=== PATIENT | male | born 1940 | race Caucasian/White ===

== ENCOUNTER 2020-05-12 09:11 | Outpatient (REF) | payer MEDICARE, SELFPAY ==
[2020-05-12 11:26] LABS: Cholesterol 134 mg/dL; HDL Cholesterol 41 mg/dL; LDL Cholesterol Calculated 56 mg/dl; Triglycerides 187 mg/dL
== END 2020-05-12 09:12 | disposition home or self-care (01) ==
LOC: HO.LAB 09:11
PROVIDERS: PCP Internal Medicine; Visit Provider Internal Medicine
DX: I10 Essential (primary) hypertension (principal)
CPT/HCPCS: 80061

== ENCOUNTER 2020-08-08 08:38 | Outpatient (REF) | payer MEDICARE, SELFPAY | END 2020-08-08 08:39 | disposition home or self-care (01) | LOC: HO.MDS 08:38 | PROVIDERS: PCP Internal Medicine; Visit Provider Psychiatry & Neurology Neurology | DX: G61.81 Chronic inflammatory demyelinating polyneuritis (principal) | CPT/HCPCS: 96365; 96366; J1572 ==

== ENCOUNTER 2020-08-10 10:57 | Outpatient (REF) | payer MEDICARE, SELFPAY ==
[2020-08-10 12:07] LABS: Cholesterol 129 mg/dL; HDL Cholesterol 42 mg/dL; LDL Cholesterol Calculated 68 mg/dl; Triglycerides 97 mg/dL
== END 2020-08-10 10:58 | disposition home or self-care (01) ==
LOC: HO.LAB 10:57
PROVIDERS: PCP Internal Medicine; Visit Provider Internal Medicine
DX: E11.9 Type 2 diabetes mellitus without complications (principal)
CPT/HCPCS: 36415; 80061

== ENCOUNTER 2020-12-17 08:40 | Outpatient (REF) | payer MEDICARE, SELFPAY ==
[2020-12-17 09:02] LABS: MANUAL DIFF FLAG NO
[2020-12-17 09:04] LABS: Basophils Percent Auto 0.5 % (0-2); Eosinophils Absolute Auto 0.2 X10*3/uL (0.0-0.4); Eosinophils Percent Auto 2.3 % (0-4); Hemoglobin 14.9 g/dl (14.0-18.0); Imm Gran Abs Auto 0.02 X10*3/uL (0.00-0.03); Imm Gran Pct Auto 0.3 % (0.0-0.4); Lymphocytes Absolute Auto 2.4 X10*3/uL (1.2-4.9); Lymphocytes Percent Auto 36.2 % (20-40); Mean Corpuscular HGB Conc 33.9 g/dl (31.0-36.0); Mean Corpuscular Hemoglobin 30.8 pg (27.0-33.0); Mean Corpuscular Volume 90.9 fL (80-98); Mean Platelet Volume 8.9 fL (9.4-12.4); Monocytes Absolute Auto 0.9 X10*3/uL (0.1-1.2); Monocytes Percent Auto 13.5 % (2-11); Neutrophils Absolute Auto 3.1 X10*3/uL (2.0-8.3); Neutrophils Percent Auto 47.2 % (45-73); Platelet Count 265 X10*3/uL (160-400); Red Blood Count 4.84 X10*6/uL (4.60-5.80); Red Cell Distribution Width 12.7 % (11.0-16.0); White Blood Count 6.6 X10*3/uL (4.8-10.8)
[2020-12-17 09:14] LABS: Estimated Average Glucose 137 mg/dL; Hemoglobin A1c % 6.4 %
[2020-12-17 09:54] LABS: Alanine Aminotransferase 25 U/L (0-40); Albumin Level 4.2 g/dL (3.5-5.0); Alkaline Phosphatase 100 U/L (39-117); Anion Gap 10 (12-20); Aspartate Amino Transferase 24 U/L (5-37); Bilirubin Total 0.5 mg/dL (0.0-1.0); Blood Urea Nitrogen 12 mg/dL (9-16); Calcium 9.1 mg/dL (8.4-10.2); Carbon Dioxide 29 mmol/L (22-29); Chloride 105 mmol/L (96-108); Cholesterol 147 mg/dL; Estimated Glomerular Filt Rate > 60; Glucose Fasting 132 mg/dL (60-99); HDL Cholesterol 40 mg/dL; LDL Cholesterol Calculated 59 mg/dl; Potassium 4.9 mmol/L (3.3-5.1); Sodium 139 mmol/L (135-145); Total Protein 6.9 g/dL (6.5-8.0); Triglycerides 243 mg/dL
[2020-12-17 10:16] LABS: Thyroid Stimulating Hormone 1.76 uIU/mL (0.32-4.0)
== END 2020-12-17 08:41 | disposition home or self-care (01) ==
LOC: HO.LAB 08:40
PROVIDERS: PCP Internal Medicine; Visit Provider Internal Medicine
DX: Z00.00 Encounter for general adult medical examination without abnormal findings (principal); E11.9 Type 2 diabetes mellitus without complications; E03.9 Hypothyroidism, unspecified
CPT/HCPCS: 36415; 80053; 80061; 83036; 84443; 85025

== ENCOUNTER 2021-02-09 08:03 | Outpatient (REF) | payer MEDICARE, SELFPAY | END 2021-02-09 08:04 | disposition home or self-care (01) | LOC: HO.MDS 08:03 | PROVIDERS: PCP Internal Medicine; Visit Provider Psychiatry & Neurology Neurology | DX: G61.81 Chronic inflammatory demyelinating polyneuritis (principal) | CPT/HCPCS: 96365; 96366; J1569 ==

== ENCOUNTER 2021-08-25 12:29 | Outpatient (RCR) | payer MEDICARE, SELFPAY ==
--- NOTE | ~2021-08-25 | XR_ITS ---
EXAMINATION: XR FOOT, RIGHT CLINICAL INFORMATION: Nonhealing wound right 5th toe. COMPARISON: None TECHNIQUE: AP, lateral, and oblique views of the right foot. FINDINGS: There is a lateral subluxation PIP joint 5th digit. A small fracture suspected involving the mid phalanx. Also visualized is plantar flexion deformity PIP joint 4th digit. Mild hallux valgus deformity 1st MTP joint is noted. There is an old healed stress fracture 2nd metatarsal. XR/XR foot RT min 3V IMPRESSION: Several abnormalities involving the distal phalanges of 2nd through 5th digits with moderate soft tissue swelling. No bony erosive changes or soft tissue gas seen to suspect any osteomyelitis or abscess. Fracture of the mid phalanx 5th digit is suspected.
[2021-08-25 13:57] LABS: MANUAL DIFF FLAG NO
[2021-08-25 14:07] LABS: Basophils Percent Auto 0.2 % (0-2); Eosinophils Absolute Auto 0.1 X10*3/uL (0.0-0.4); Eosinophils Percent Auto 0.7 % (0-4); Hemoglobin 14.5 g/dl (14.0-18.0); Imm Gran Abs Auto 0.04 X10*3/uL (0.00-0.03); Imm Gran Pct Auto 0.5 % (0.0-0.4); Lymphocytes Absolute Auto 2.2 X10*3/uL (1.2-4.9); Lymphocytes Percent Auto 25.8 % (20-40); Mean Corpuscular HGB Conc 33.7 g/dl (31.0-36.0); Mean Corpuscular Hemoglobin 30.4 pg (27.0-33.0); Mean Corpuscular Volume 90.1 fL (80.0-98.0); Mean Platelet Volume 8.8 fL (9.4-12.4); Monocytes Absolute Auto 1.1 X10*3/uL (0.1-1.2); Monocytes Percent Auto 13.1 % (2-11); Neutrophils Absolute Auto 5.1 x10*3/uL (2.0-8.3); Neutrophils Percent Auto 59.7 % (45-73); Platelet Count 318 X10*3/uL (160-400); Red Blood Count 4.77 X10*6/uL (4.60-5.80); Red Cell Distribution Width 12.3 % (11.0-16.0); White Blood Count 8.5 X10*3/uL (4.8-10.8)
[2021-08-25 14:29] LABS: Estimated Average Glucose 146 mg/dL; Hemoglobin A1c % 6.7 %
[2021-08-25 14:33] LABS: Anion Gap 12 (12-20); Blood Urea Nitrogen 16 mg/dL (9-16); C Reactive Protein 0.09 mg/dL (< or = 0.50); Calcium 9.5 mg/dL (8.4-10.2); Carbon Dioxide 26 mmol/L (22-29); Chloride 103 mmol/L (96-108); Estimated Glomerular Filt Rate > 60; Glucose Random 155 mg/dL (60-115); Potassium 4.3 mmol/L (3.3-5.1); Sodium 137 mmol/L (135-145)
[2021-08-25 14:45] LABS: Erythrocyte Sedimentation Rate 7 MM/HR (0-15)
== END 2021-09-12 15:39 | disposition home or self-care (01) ==
LOC: HO.WCC 12:29
PROVIDERS: PCP Internal Medicine; Visit Provider Physician Assistant
DX: E11.621 Type 2 diabetes mellitus with foot ulcer (principal); L97.514 Non-pressure chronic ulcer of other part of right foot with necrosis of bone; S92.531D Displaced fracture of distal phalanx of right lesser toe(s), subsequent encounter for fracture with routine healing; E11.40 Type 2 diabetes mellitus with diabetic neuropathy, unspecified; Q75.8 Other specified congenital malformations of skull and face bones; G61.0 Guillain-Barre syndrome; L53.9 Erythematous condition, unspecified; I10 Essential (primary) hypertension; Z87.891 Personal history of nicotine dependence
CPT/HCPCS: 36415; 73630; 80048; 83036; 84134; 85025; 85652; 86140; 99212; 99213

== ENCOUNTER 2021-09-27 10:36 | Outpatient (REF) | payer MEDICARE, SELFPAY ==
[2021-09-27 11:04] LABS: MANUAL DIFF FLAG NO
[2021-09-27 12:13] LABS: Basophils Percent Auto 0.5 % (0-2); Eosinophils Absolute Auto 0.1 X10*3/uL (0.0-0.4); Hematocrit 45.6 % (42.0-52.0); Hemoglobin 15.2 g/dl (14.0-18.0); Imm Gran Abs Auto 0.02 X10*3/uL (0.00-0.03); Imm Gran Pct Auto 0.3 % (0.0-0.4); Lymphocytes Absolute Auto 1.7 X10*3/uL (1.2-4.9); Lymphocytes Percent Auto 28.6 % (20-40); Mean Corpuscular HGB Conc 33.3 g/dl (31.0-36.0); Mean Corpuscular Hemoglobin 30.5 pg (27.0-33.0); Mean Corpuscular Volume 91.4 fL (80.0-98.0); Mean Platelet Volume 9.3 fL (9.4-12.4); Monocytes Absolute Auto 0.7 X10*3/uL (0.1-1.2); Monocytes Percent Auto 11.5 % (2-11); Neutrophils Absolute Auto 3.5 x10*3/uL (2.0-8.3); Neutrophils Percent Auto 58.1 % (45-73); Platelet Count 320 X10*3/uL (160-400); Red Blood Count 4.99 X10*6/uL (4.60-5.80); Red Cell Distribution Width 12.7 % (11.0-16.0); White Blood Count 6.1 X10*3/uL (4.8-10.8)
[2021-09-27 13:00] LABS: Alanine Aminotransferase 38 U/L (0-40); Albumin Level 4.4 g/dL (3.5-5.0); Alkaline Phosphatase 100 U/L (39-117); Anion Gap 11 (12-20); Aspartate Amino Transferase 33 U/L (5-37); Bilirubin Total 0.7 mg/dL (0.0-1.0); Blood Urea Nitrogen 11 mg/dL (9-16); Calcium 9.3 mg/dL (8.4-10.2); Carbon Dioxide 26 mmol/L (22-29); Chloride 102 mmol/L (96-108); Cholesterol 147 mg/dL; Estimated Glomerular Filt Rate > 60; Glucose Fasting 122 mg/dL (60-99); HDL Cholesterol 43 mg/dL; LDL Cholesterol Calculated 75 mg/dl; Potassium 4.3 mmol/L (3.3-5.1); Sodium 135 mmol/L (135-145); Total Protein 7.5 g/dL (6.5-8.0); Triglycerides 149 mg/dL
[2021-09-27 13:20] LABS: Thyroid Stimulating Hormone 1.63 uIU/mL (0.32-4.0)
== END 2021-09-27 10:37 | disposition home or self-care (01) ==
LOC: HO.LAB 10:36
PROVIDERS: PCP Internal Medicine; Visit Provider Internal Medicine
DX: Z00.00 Encounter for general adult medical examination without abnormal findings (principal); Z13.0 Encounter for screening for diseases of the blood and blood-forming organs and certain disorders involving the immune mechanism
CPT/HCPCS: 36415; 80053; 80061; 84443; 85025

== ENCOUNTER 2022-02-26 10:02 | Outpatient (REF) | payer MEDICARE, SELFPAY ==
[2022-02-26 11:32] LABS: Cholesterol 133 mg/dL; HDL Cholesterol 45 mg/dL; LDL Cholesterol Calculated 66 mg/dl; Triglycerides 112 mg/dL
== END 2022-02-26 10:03 | disposition home or self-care (01) ==
LOC: HO.LAB 10:02
PROVIDERS: PCP Internal Medicine; Visit Provider Internal Medicine
DX: Z13.220 Encounter for screening for lipoid disorders (principal)
CPT/HCPCS: 36415; 80061

== ENCOUNTER 2022-06-02 09:08 | Outpatient (REF) | payer MEDICARE, SELFPAY ==
[2022-06-02 11:03] LABS: Cholesterol 134 mg/dL; HDL Cholesterol 44 mg/dL; LDL Cholesterol Calculated 71 mg/dl; Triglycerides 96 mg/dL
== END 2022-06-02 09:09 | disposition home or self-care (01) ==
LOC: HO.LAB 09:08
PROVIDERS: PCP Internal Medicine; Visit Provider Internal Medicine
DX: E78.5 Hyperlipidemia, unspecified (principal)
CPT/HCPCS: 36415; 80061

== ENCOUNTER 2022-09-03 09:01 | Outpatient (REF) | payer MEDICARE, SELFPAY ==
[2022-09-03 10:37] LABS: Cholesterol 122 mg/dL; HDL Cholesterol 43 mg/dL; LDL Cholesterol Calculated 61 mg/dl; Triglycerides 91 mg/dL
== END 2022-09-03 09:02 | disposition home or self-care (01) ==
LOC: HO.LAB 09:01
PROVIDERS: PCP Internal Medicine; Visit Provider Internal Medicine
DX: E78.5 Hyperlipidemia, unspecified (principal)
CPT/HCPCS: 36415; 80061

== ENCOUNTER 2023-03-14 08:32 | Outpatient (REF) | payer MEDICARE, SELFPAY ==
[2023-03-14 10:29] LABS: Cholesterol 127 mg/dL (<200); Glucose Fasting 117 mg/dL (60-99); HDL Cholesterol 42 mg/dL (>40); LDL Cholesterol Calculated 66 mg/dL (<100); Triglycerides 97 mg/dL (<150)
[2023-03-14 10:38] LABS: Estimated Average Glucose 114 mg/dL; Hemoglobin A1c % 5.6 % (<6.0)
== END 2023-03-14 08:33 | disposition home or self-care (01) ==
LOC: HO.LAB 08:32
PROVIDERS: PCP Internal Medicine; Visit Provider Internal Medicine
DX: R73.9 Hyperglycemia, unspecified (principal); E78.5 Hyperlipidemia, unspecified
CPT/HCPCS: 36415; 80061; 82947; 83036

== ENCOUNTER 2023-03-14 14:21 | Outpatient (AMB) | payer MEDICARE, SELFPAY ==
[2023-03-14 14:24] VITALS: BP 122/64; PULSE 82; O2SAT 98; BMI 27.8
--- NOTE | 2023-03-14 14:24 | MHC.PC.OV ---
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 Allergies hydrochlorothiazide [HCTZ] Allergy (Mild, Verified 03/14/23 14:37) ADVISED PATIENT NOT TO TAKE AGAIN TABITHA Inhibitors Allergy (Unknown, Verified 03/14/23 14:37) Unknown lisinopril [LISINOPRIL] Allergy (Unknown, Verified 03/14/23 14:37) COUGH Medication List - Last Reconciled 03/15/23 by Parish Vincent MD amlodipine 10 mg PO DAILY losartan 100 mg PO DAILY simvastatin 20 mg PO BEDTIME Tobacco use date assessed: 09/04/22 Fall risk assessment: No Falls in past year Last assessed Fall Risk: 03/14/23 Dental Screening Dental Screen Date: 03/14/23 Did you have a dental visit in the last 12 months?: No Did you have a dental problem in the last 6 months where you did not have access to dental care?: No Was dental information given to patient?: Patient has dentist HPI 3 month f/u - due for CMP and Microalbumin HPI Details hypertension hyperlipidemia; stable on rx; compliant [facility] Medical History Hyperlipidemia Hypertension Surgical History 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 1. Little interest or pleasure in doing things: not at all 2. Feeling down, depressed, or hopeless: not at all 3. Trouble falling or staying asleep, or sleeping too much: not at all 4. Feeling tired or having little energy: not at all 5. Poor appetite or overeating: not at all 6. Feeling bad about yourself - or that you are a failure or have let yourself or your family down: not at all 7. Trouble concentrating on things, such as reading the newspaper or watching television: not at all 8. Moving or speaking so slowly that other people could have noticed. Or the opposite - being so fidgety or restless that you have been moving around a lot more than usual: not at all 9. Thoughts that you would be better off or of hurting yourself in some way: not at all Total score: 0 Depression Screening Interpretation: Negative Source: Developed by Drs. Luis Garnett, Melony Leon, Elie Iniguez and colleagues, with an educational negrito from [email or web address] Thrive Questionnaire Date Thrive assessed: 09/04/22 AUDIT C Alcohol Use Questionnaire (AUDIT-C) 1. How often do you have a drink containing alcohol?: Never Total Score: 0 Score Reviewed/Action Taken: Yes TAMMIE-7 AMB Questionnaire TAMMIE-7 Date TAMMIE - 7 assessed: 09/04/22 Source: Developed by Drs. Luis Garnett, Melony Leon, Elie Iniguez and colleagues, with an educational negrito from [email or web address] Review of Systems Const Denies chills, Denies headache(s) and Denies weight loss ENT Denies headache(s) Card Denies chest pain, Denies syncope, Denies irregular heart rhythm and Denies dyspnea Resp Denies chest congestion, Denies cough and Denies dyspnea GI Denies abdominal pain, Denies change in stool character, Denies nausea and Denies vomiting Musc Denies deformity and Denies joint swelling Neuro Denies syncope and Denies headache(s) Physical exam (Primary Care) Vital Signs: Last Vital Signs Pulse 82 03/14/23 14:24 BP 122/64 03/14/23 14:24 Pulse Ox 98 03/14/23 14:24 Oxygen Delivery Method Room Air 09/14/23 14:24 BMI result Body Mass Index 27.8 Tobacco/Smoking Status: Tobacco use Status Tobacco use date assessed 09/04/22 03/14/23 14:25 Patient Tobacco Use Status Never used Tobacco 03/14/23 14:25 e-Cigarette/Vaping Use Never Used 03/14/23 14:25 PHQ-9: PHQ-9 Score PHQ-9: Total score 0 03/14/23 14:32 Depression Screening Interpretation: Negative Thrive Assessment: Date of Thrive Assessment Date Thrive assessed 09/04/22 03/14/23 14:25 Const General: cooperative, comfortable, no acute distress and alert Neck Neck: Yes no lymphadenopathy Thyroid: Thyroid normal Resp Effort & Inspection: normal respiratory effort Auscultation: clear to auscultation bilaterally Percussion: percussion normal Cardio Jugular venous distension: no JVD Palpation: normal PMI Rate: regular rate Rhythm: regular rhythm Heart sounds: S1 normal heart sound present and S2 normal heart sound present GI Inspection: Yes normal to inspection Palpation (GI): No hepatosplenomegaly present Skin General skin exam: no rashes or lesions noted Extrem General: Yes no clubbing, cyanosis or edema Assessment and Plan Assessment & Plan (1) Hyperlipidemia: Code(s): E78.5 - Hyperlipidemia, unspecified Plan: stable; same rx (2) Hypertension: Code(s): I10 - Essential (primary) hypertension Plan: stable; same rx Orders: Orders Lipid Panel Today E78.5 - Hyperlipidemia, unspecified Coding Level of Care Code Est Pt Level 3 (19063) Diagnoses Hyperlipidemia E78.5 Hypertension I10
== END 2023-03-14 14:54 | disposition home or self-care (01) ==
PROVIDERS: PCP Internal Medicine; Visit Provider Internal Medicine
DX: E78.5 Hyperlipidemia, unspecified (principal); I10 Essential (primary) hypertension
CPT/HCPCS: 99213

== ENCOUNTER 2023-06-18 08:59 | Outpatient (REF) | payer MEDICARE, SELFPAY ==
[2023-06-18 10:25] LABS: Cholesterol 134 mg/dL (<200); HDL Cholesterol 45 mg/dL (>40); LDL Cholesterol Calculated 64 mg/dL (<100); Triglycerides 128 mg/dL (<150)
== END 2023-06-18 09:00 | disposition home or self-care (01) ==
LOC: HO.LAB 08:59
PROVIDERS: PCP Internal Medicine; Visit Provider Internal Medicine
DX: E78.5 Hyperlipidemia, unspecified (principal)
CPT/HCPCS: 36415; 80061

== ENCOUNTER 2023-06-19 14:24 | Outpatient (AMB) | payer MEDICARE, SELFPAY ==
[2023-06-19 14:26] VITALS: BP 120/66; PULSE 80; O2SAT 98; BMI 28.5
--- NOTE | 2023-06-19 14:26 | A.OFFPC_ITS ---
Vital Signs 06/19/23 14:26 Height 5 ft 9 in Weight 193 lb BMI 28.5 BP 120/66 Blood Pressure Location Lt brachial Position Sitting Pulse 80 Pulse Source Pulse Oximeter Pulse Oximetry (%) 98 Oxygen Delivery Method Room Air Intake Visit Reasons: 3 month f/u Missile Control Pilot Required: No Floor Layer Helper: Not Required per policy Accompanied by: Self / Same As Patient Allergies hydrochlorothiazide [HCTZ] Allergy (Mild, Verified 06/19/23 14:27) ADVISED PATIENT NOT TO TAKE AGAIN TABITHA Inhibitors Allergy (Unknown, Verified 06/19/23 14:27) Unknown lisinopril [LISINOPRIL] Allergy (Unknown, Verified 06/19/23 14:27) COUGH Medication List - Last Reconciled 06/20/23 by Parish Vincent MD amlodipine 10 mg PO DAILY losartan 100 mg PO DAILY simvastatin 20 mg PO BEDTIME Tobacco use date assessed: 09/04/22 Fall risk assessment: No Falls in past year Last assessed Fall Risk: 06/19/23 Dental Screening Dental Screen Date: 06/19/23 Did you have a dental visit in the last 12 months?: Yes Did you have a dental problem in the last 6 months where you did not have access to dental care?: No Was dental information given to patient?: Patient has dentist HPI 3 month f/u HPI Details htn and nyperlip on rx; doing well; compliant [facility] Medical History Hyperlipidemia Hypertension Surgical History 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 Amputation toe History of brain surgery History of appendectomy Family History Father Medical history unknown Mother Heart disease Brother Liver cancer Social History Housing: House Alcohol intake: never Patient Tobacco Use Status: Never used Tobacco e-Cigarette/Vaping Use: Never Used Second Hand Smoke Exposure: No service: No Current occupational status: retired Cognitive needs: No Hearing needs: No Vision needs: Yes (reading glasses) Questionnaire Thrive Questionnaire Date Thrive assessed: 09/04/22 TAMMIE-7 AMB Questionnaire TAMMIE-7 Date TAMMIE - 7 assessed: 09/04/22 Source: Developed by Drs. Luis Garnett, Melony Leon, Elie Iniguez and colleagues, with an educational negrito from [employer]. Review of Systems Const Denies chills, Denies headache(s) and Denies weight loss ENT Denies headache(s) Card Denies chest pain, Denies syncope, Denies irregular heart rhythm and Denies dyspnea Resp Denies chest congestion, Denies cough and Denies dyspnea GI Denies abdominal pain, Denies change in stool character, Denies nausea and Denies vomiting Musc Denies deformity and Denies joint swelling Neuro Denies syncope and Denies headache(s) Physical exam (Primary Care) Vital Signs: Last Vital Signs Pulse 80 06/19/23 14:26 BP 120/66 06/19/23 14:26 Pulse Ox 98 06/19/23 14:26 Oxygen Delivery Method Room Air 06/19/23 14:26 BMI result Body Mass Index 28.5 Tobacco/Smoking Status: Tobacco use Status Tobacco use date assessed 09/04/22 06/19/23 14:27 Patient Tobacco Use Status Never used Tobacco 06/19/23 14:27 e-Cigarette/Vaping Use Never Used 06/19/23 14:27 Thrive Assessment: Date of Thrive Assessment Date Thrive assessed 09/04/22 06/19/23 14:27 Const General: cooperative, comfortable, no acute distress and alert Neck Neck: Yes no lymphadenopathy Thyroid: Thyroid normal Resp Effort & Inspection: normal respiratory effort Auscultation: clear to auscultation bilaterally Percussion: percussion normal Cardio Jugular venous distension: no JVD Palpation: normal PMI Rate: regular rate Rhythm: regular rhythm Heart sounds: S1 normal heart sound present and S2 normal heart sound present GI Inspection: Yes normal to inspection Palpation (GI): No hepatosplenomegaly present Skin General skin exam: no rashes or lesions noted Extrem General: Yes no clubbing, cyanosis or edema Assessment and Plan Assessment & Plan (1) Hyperlipidemia: Code(s): E78.5 - Hyperlipidemia, unspecified Plan: stable; same rx (2) Hypertension: Code(s): I10 - Essential (primary) hypertension Plan: stable; same rx Orders: Orders Lipid Panel Today E78.5 - Hyperlipidemia, unspecified Coding Level of Care Code Est Pt Level 3 (54970) Diagnoses Hyperlipidemia E78.5 Hypertension I10
== END 2023-06-19 15:42 | disposition home or self-care (01) ==
PROVIDERS: PCP Internal Medicine; Visit Provider Internal Medicine
DX: E78.5 Hyperlipidemia, unspecified (principal); I10 Essential (primary) hypertension
CPT/HCPCS: 99213

== ENCOUNTER 2023-09-19 09:51 | Outpatient (REF) | payer MEDICARE, SELFPAY ==
[2023-09-19 11:12] LABS: Cholesterol 126 mg/dL (<200); HDL Cholesterol 45 mg/dL (>40); LDL Cholesterol Calculated 61 mg/dL (<100); Triglycerides 104 mg/dL (<150)
== END 2023-09-19 09:52 | disposition home or self-care (01) ==
LOC: HO.LAB 09:51
PROVIDERS: PCP Internal Medicine; Visit Provider Internal Medicine
DX: E78.5 Hyperlipidemia, unspecified (principal)
CPT/HCPCS: 36415; 80061

== ENCOUNTER 2023-09-30 11:11 | Outpatient (AMB) | payer MEDICARE, SELFPAY ==
[2023-09-30 11:15] VITALS: BP 120/60; PULSE 60; O2SAT 98; BMI 28.4
--- NOTE | 2023-09-30 11:15 | MHC.PC.OV ---
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: No Radio Broadcaster: Not Required per policy Accompanied by: Self / Same As Patient Allergies hydrochlorothiazide [HCTZ] Allergy (Mild, Verified 09/30/23 11:15) ADVISED PATIENT NOT TO TAKE AGAIN TABITHA Inhibitors Allergy (Unknown, Verified 09/30/23 11:15) Unknown lisinopril [LISINOPRIL] Allergy (Unknown, Verified 09/30/23 11:15) COUGH Medication List - Last Reconciled 09/30/23 by Parish Vincent MD amlodipine 10 mg PO DAILY losartan 100 mg PO DAILY simvastatin 20 mg PO BEDTIME Tobacco use date assessed: 09/30/23 Fall risk assessment: No Falls in past year Last assessed Fall Risk: 09/30/23 Dental Screening Dental Screen Date: 09/30/23 Did you have a dental visit in the last 12 months?: Yes Did you have a dental problem in the last 6 months where you did not have access to dental care?: No Was dental information given to patient?: Patient has dentist HPI 3 month follow up HPI Details HTN on Rx; doing well and compliant [facility] Medical History Hyperlipidemia Hypertension Surgical History 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 1. Little interest or pleasure in doing things: not at all 2. Feeling down, depressed, or hopeless: not at all 3. Trouble falling or staying asleep, or sleeping too much: not at all 4. Feeling tired or having little energy: not at all 5. Poor appetite or overeating: not at all 6. Feeling bad about yourself - or that you are a failure or have let yourself or your family down: not at all 7. Trouble concentrating on things, such as reading the newspaper or watching television: not at all 8. Moving or speaking so slowly that other people could have noticed. Or the opposite - being so fidgety or restless that you have been moving around a lot more than usual: not at all 9. Thoughts that you would be better off or of hurting yourself in some way: not at all Total score: 0 Depression Screening Interpretation: Negative Depression Screening Done: Yes 72717 - PHQ-9 Billing: Yes Source: Developed by Drs. Luis Garnett, Melony Leon, Elie Iniguez and colleagues, with an educational negrito from [employer] Thrive Questionnaire Date Thrive assessed: 09/30/23 I am a: Patient What is your living situation today?: I have a steady place to live Within the past 12 months, did the food you bought not last and you didn't have the money to get more?: Never true Within the past 12 months, did you worry whether your food would run out before you got money to buy more?: Never true Do you have trouble paying for medicines?: No Do you have trouble getting transportation to medical appointments?: No Do you have trouble paying your heating and electricity bill?: No Do you have trouble taking care of your child, family member or friend?: No Do you have trouble with day-to-day activities such as bathing, preparing meals, shopping, managing finances, etc.?: No Are you currently unemployed and looking for a job?: No Are you interested in more education?: No Please select the resources that you would like help with: None THRIVE Score: 0 AUDIT C Alcohol Use Questionnaire (AUDIT-C) 1. How often do you have a drink containing alcohol?: Never Total Score: 0 Score Reviewed/Action Taken: Yes TAMMIE-7 AMB Questionnaire TAMMIE-7 Date TAMMIE - 7 assessed: 09/30/23 Feeling nervous, anxious, or on edge: 0 = Not at all Not being able to stop or control worryin = Not at all Worrying too much about different things: 0 = Not at all Trouble relaxin = Not at all Being so restless that it is hard to sit still: 0 = Not at all Becoming easily annoyed or irritable: 0 = Not at all Feeling afraid as if something awful might happen: 0 = Not at all Total TAMMIE-7 score (0-4 normal; 5-9 mild; 10-14 moderate; 15-21 severe): 0 Source: Developed by Drs. Luis Garnett, Melony Leon, Elie Iniguez and colleagues, with an educational negrito from [employer] TAMMIE-7 Assessment Billing TAMMIE-7 Assessment Tool: TAMMIE-7 Assessment 11192 Review of Systems Const Denies chills, Denies headache(s) and Denies weight loss ENT Denies headache(s) Card Denies chest pain, Denies syncope, Denies irregular heart rhythm and Denies dyspnea Resp Denies chest congestion, Denies cough and Denies dyspnea GI Denies abdominal pain, Denies change in stool character, Denies nausea and Denies vomiting Musc Denies deformity and Denies joint swelling Neuro Denies syncope and Denies headache(s) Physical exam (Primary Care) Vital Signs: Last Vital Signs Pulse 60 09/30/23 11:15 BP 120/60 09/30/23 11:15 Pulse Ox 98 09/30/23 11:15 Oxygen Delivery Method Room Air 09/30/23 11:15 BMI result Body Mass Index 28.4 Tobacco/Smoking Status: Tobacco use Status Tobacco use date assessed 09/30/23 09/30/23 11:19 Patient Tobacco Use Status Never used Tobacco 09/30/23 11:19 e-Cigarette/Vaping Use Never Used 09/30/23 11:19 PHQ-9: PHQ-9 Score PHQ-9: Total score 0 09/30/23 11:19 Depression Screening Interpretation: Negative Thrive Assessment: Date of Thrive Assessment Date Thrive assessed 09/30/23 09/30/23 11:19 Const General: cooperative, comfortable, no acute distress and alert Neck Neck: Yes no lymphadenopathy Thyroid: Thyroid normal Resp Effort & Inspection: normal respiratory effort Auscultation: clear to auscultation bilaterally Percussion: percussion normal Cardio Jugular venous distension: no JVD Palpation: normal PMI Rate: regular rate Rhythm: regular rhythm Heart sounds: S1 normal heart sound present and S2 normal heart sound present GI Inspection: Yes normal to inspection Palpation (GI): No hepatosplenomegaly present Skin General skin exam: no rashes or lesions noted Extrem General: Yes no clubbing, cyanosis or edema Assessment and Plan Assessment & Plan (1) Hypertension: Code(s): I10 - Essential (primary) hypertension Plan: stable; same rx Orders: Orders Lipid Panel Today E78.5 - Hyperlipidemia, unspecified Coding Level of Care Code Est Pt Level 3 (14131) Diagnoses Hypertension I10 Additional Codes TAMMIE-7 Assessment Billing - TAMMIE-7 Assessment Tool: TAMMIE-7 Assessment [id number] ([id number])
== END 2023-09-30 11:40 | disposition home or self-care (01) ==
PROVIDERS: PCP Internal Medicine; Visit Provider Internal Medicine
DX: I10 Essential (primary) hypertension (principal)
CPT/HCPCS: 99213

== ENCOUNTER 2024-01-01 07:41 | Outpatient (REF) | payer MEDICARE, SELFPAY ==
[2024-01-01 09:18] LABS: Cholesterol 134 mg/dL (<200); HDL Cholesterol 35 mg/dL (>40); LDL Cholesterol Calculated 34 mg/dL (<100); Triglycerides 327 mg/dL (<150)
== END 2024-01-01 07:42 | disposition home or self-care (01) ==
LOC: HO.LAB 07:41
PROVIDERS: PCP Internal Medicine; Visit Provider Internal Medicine
DX: E78.5 Hyperlipidemia, unspecified (principal)
CPT/HCPCS: 36415; 80061

== ENCOUNTER 2024-01-06 14:33 | Outpatient (AMB) | payer MEDICARE, SELFPAY ==
[2024-01-06 14:38] VITALS: BP 144/60; PULSE 82; O2SAT 98; BMI 29.7
--- NOTE | 2024-01-06 14:38 | MHC.PC.OV ---
Vital Signs 01/06/24 14:38 Height 5 ft 9 in Weight 201 lb BMI 29.7 BP 144/60 H Blood Pressure Location Lt brachial Position Sitting Pulse 82 Pulse Source Pulse Oximeter Pulse Oximetry (%) 98 Oxygen Delivery Method Room Air Intake Visit Reasons: 3mof\u - needs urine alb/crea ratio & CMP per [facility] Web Design Instructor Required: No Wrecker Driver: Not Required per policy Accompanied by: Self / Same As Patient Allergies hydrochlorothiazide [HCTZ] Allergy (Mild, Verified 01/06/24 14:39) ADVISED PATIENT NOT TO TAKE AGAIN TABITHA Inhibitors Allergy (Unknown, Verified 01/06/24 14:39) Unknown lisinopril [LISINOPRIL] Allergy (Unknown, Verified 01/06/24 14:39) COUGH Medication List - Last Reconciled 01/07/24 by Parish Vincent MD amlodipine 10 mg PO DAILY losartan 100 mg PO DAILY simvastatin 20 mg PO BEDTIME Tobacco use date assessed: 09/30/23 Fall risk assessment: No Falls in past year Last assessed Fall Risk: 01/06/24 Dental Screening Dental Screen Date: 09/30/23 HPI 3mof\u - needs urine alb/crea ratio & CMP per [facility] HPI Details HTN on Rx; doing well; compliant; does not have DM PFSH Medical History Hyperlipidemia Hypertension Surgical History 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 Amputation toe History of brain surgery History of appendectomy Family History Father Medical history unknown Mother Heart disease Brother Liver cancer Social History Housing: House Alcohol intake: never Patient Tobacco Use Status: Never used Tobacco e-Cigarette/Vaping Use: Never Used Second Hand Smoke Exposure: No service: No Current occupational status: retired Cognitive needs: No Hearing needs: No Vision needs: Yes (reading glasses) Questionnaire Thrive Questionnaire Date Thrive assessed: 09/30/23 TAMMIE-7 AMB Questionnaire TAMMIE-7 Date TAMMIE - 7 assessed: 09/30/23 Source: Developed by Vincent Phillipset B.W. Edward, Elie Iniguez and colleagues, with an educational negrito from [employer]. Review of Systems Const Denies chills, Denies headache(s) and Denies weight loss ENT Denies headache(s) Card Denies chest pain, Denies syncope, Denies irregular heart rhythm and Denies dyspnea Resp Denies chest congestion, Denies cough and Denies dyspnea GI Denies abdominal pain, Denies change in stool character, Denies nausea and Denies vomiting Musc Denies deformity and Denies joint swelling Neuro Denies syncope and Denies headache(s) Physical exam (Primary Care) Vital Signs: Last Vital Signs Pulse 82 01/06/24 14:38 BP 144/60 H 01/06/24 14:38 Pulse Ox 98 01/06/24 14:38 Oxygen Delivery Method Room Air 01/06/24 14:38 BMI result Body Mass Index 29.7 Tobacco/Smoking Status: Tobacco use Status Tobacco use date assessed 09/30/23 01/06/24 14:39 Patient Tobacco Use Status Never used Tobacco 01/06/24 14:39 e-Cigarette/Vaping Use Never Used 01/06/24 14:39 Thrive Assessment: Date of Thrive Assessment Date Thrive assessed 09/30/23 01/06/24 14:39 Const General: cooperative, comfortable, no acute distress and alert Neck Neck: Yes no lymphadenopathy Thyroid: Thyroid normal Resp Effort & Inspection: normal respiratory effort Auscultation: clear to auscultation bilaterally Percussion: percussion normal Cardio Jugular venous distension: no JVD Palpation: normal PMI Rate: regular rate Rhythm: regular rhythm Heart sounds: S1 normal heart sound present and S2 normal heart sound present GI Inspection: Yes normal to inspection Palpation (GI): No hepatosplenomegaly present Skin General skin exam: no rashes or lesions noted Extrem General: Yes no clubbing, cyanosis or edema Assessment and Plan Assessment & Plan (1) Hypertension: Code(s): I10 - Essential (primary) hypertension Plan: stable; same rx Orders: Orders Lipid Panel Today Z13.220 - Encounter for screening for lipoid disorders Hemoglobin A1c Today R73.9 - Hyperglycemia, unspecified Glucose Fasting Today R73.9 - Hyperglycemia, unspecified Coding Level of Care Code Est Pt Level 3 (65100) Diagnoses Hypertension I10
== END 2024-01-06 15:50 | disposition home or self-care (01) ==
PROVIDERS: PCP Internal Medicine; Visit Provider Internal Medicine
DX: I10 Essential (primary) hypertension (principal)
CPT/HCPCS: 99213

== ENCOUNTER 2024-05-06 09:52 | Outpatient (REF) | payer MEDICARE, SELFPAY ==
[2024-05-06 11:10] LABS: Estimated Average Glucose 134 mg/dL; Hemoglobin A1C 173.1343 umol/L; Hemoglobin A1c % 6.3 % (<6.0); Total Hemoglobin (HGBA1C) 3857.5273 umol/L
[2024-05-06 11:32] LABS: Cholesterol 123 mg/dL (<200); Glucose Fasting 140 mg/dL (60-99); HDL Cholesterol 43 mg/dL (>40); LDL Cholesterol Calculated 56 mg/dL (<100); Triglycerides 122 mg/dL (<150)
== END 2024-05-06 09:53 | disposition home or self-care (01) ==
LOC: HO.LAB 09:52
PROVIDERS: PCP Internal Medicine; Visit Provider Internal Medicine
DX: Z13.220 Encounter for screening for lipoid disorders (principal); R73.9 Hyperglycemia, unspecified
CPT/HCPCS: 36415; 80061; 82947; 83036

== ENCOUNTER 2024-05-12 11:28 | Outpatient (AMB) | payer MEDICARE, SELFPAY ==
[2024-05-12 11:32] VITALS: BP 142/62; PULSE 58; O2SAT 96; BMI 30.1
--- NOTE | 2024-05-12 11:32 | MHC.PC.OV ---
Vital Signs 05/12/24 11:32 Height 5 ft 9 in Weight 204 lb BMI 30.1 BP 142/62 H Blood Pressure Location Lt brachial Position Sitting Pulse 58 Pulse Source Pulse Oximeter Pulse Oximetry (%) 96 Oxygen Delivery Method Room Air Intake Visit Reasons: 3 mo f/u Family Law Specialist Required: No Accompanied by: Self / Same As Patient Allergies hydrochlorothiazide [HCTZ] Allergy (Mild, Verified 05/12/24 11:32) ADVISED PATIENT NOT TO TAKE AGAIN TABITHA Inhibitors Allergy (Unknown, Verified 05/12/24 11:32) Unknown lisinopril [LISINOPRIL] Allergy (Unknown, Verified 05/12/24 11:32) COUGH Medication List - Last Reconciled 05/12/24 by Parish Vincent MD amlodipine 10 mg PO DAILY losartan 100 mg PO DAILY simvastatin 20 mg PO BEDTIME Tobacco use date assessed: 09/30/23 Fall risk assessment: 2 + Falls in past year Last assessed Fall Risk: 05/12/24 Dental Screening Dental Screen Date: 09/30/23 HPI 3 mo f/u HPI Details HTN on rx; doing well and compliant [facility] Medical History Hyperlipidemia Hypertension Surgical History 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 Amputation toe History of brain surgery History of appendectomy Family History Father Medical history unknown Mother Heart disease Brother Liver cancer Social History Housing: House Alcohol intake: never Patient Tobacco Use Status: Never used Tobacco Tobacco use type: Cigarette e-Cigarette/Vaping Use: Never Used Second Hand Smoke Exposure: No service: No Current occupational status: retired Cognitive needs: No Hearing needs: No Vision needs: Yes (reading glasses) Questionnaire Thrive Questionnaire Date Thrive assessed: 09/30/23 TAMMIE-7 AMB Questionnaire TAMMIE-7 Date TAMMIE - 7 assessed: 09/30/23 Source: Developed by Drs. Luis Garnett, Melony Leon, Elie Iniguez and colleagues, with an educational negrito from [employer]. Review of Systems Const Denies chills, Denies headache(s) and Denies weight loss ENT Denies headache(s) Card Denies chest pain, Denies syncope, Denies irregular heart rhythm and Denies dyspnea Resp Denies chest congestion, Denies cough and Denies dyspnea GI Denies abdominal pain, Denies change in stool character, Denies nausea and Denies vomiting Musc Denies deformity and Denies joint swelling Neuro Denies syncope and Denies headache(s) Physical exam (Primary Care) Vital Signs: Last Vital Signs Pulse 58 05/12/24 11:32 BP 142/62 H 05/12/24 11:32 Pulse Ox 96 05/12/24 11:32 Oxygen Delivery Method Room Air 05/12/24 11:32 BMI result Body Mass Index 30.1 Tobacco/Smoking Status: Tobacco use Status Tobacco use date assessed 09/30/23 05/12/24 11:34 Patient Tobacco Use Status Never used Tobacco 05/12/24 11:34 Tobacco use type Cigarette 05/12/24 11:34 e-Cigarette/Vaping Use Never Used 05/12/24 11:34 Thrive Assessment: Date of Thrive Assessment Date Thrive assessed 09/30/23 05/12/24 11:34 Const General: cooperative, comfortable, no acute distress and alert Neck Neck: Yes no lymphadenopathy Thyroid: Thyroid normal Resp Effort & Inspection: normal respiratory effort Auscultation: clear to auscultation bilaterally Percussion: percussion normal Cardio Jugular venous distension: no JVD Palpation: normal PMI Rate: regular rate Rhythm: regular rhythm Heart sounds: S1 normal heart sound present and S2 normal heart sound present GI Inspection: Yes normal to inspection Palpation (GI): No hepatosplenomegaly present Skin General skin exam: no rashes or lesions noted Extrem General: Yes no clubbing, cyanosis or edema Coding Level of Care Code Est Pt Level 3 (11827) Diagnoses Hypertension I10 Assessment & Plan Assessment & Plan (1) Hypertension: Code(s): I10 - Essential (primary) hypertension Category: Medical Plan: stable; same rx Orders: Orders Lipid Panel Today Z13.220 - Encounter for screening for lipoid disorders Glucose Fasting Today R73.9 - Hyperglycemia, unspecified Hemoglobin A1c Today R73.9 - Hyperglycemia, unspecified
== END 2024-05-12 12:03 | disposition home or self-care (01) ==
PROVIDERS: PCP Internal Medicine; Visit Provider Internal Medicine
DX: I10 Essential (primary) hypertension (principal)

== ENCOUNTER → 2024-05-12 11:28 | Outpatient (BNVA) | payer MEDICARE, SELFPAY | PROVIDERS: PCP Internal Medicine; Visit Provider Internal Medicine | DX: I10 Essential (primary) hypertension (principal) | CPT/HCPCS: 99212 ==

== ENCOUNTER → 2024-07-09 14:36 | Outpatient (BNV) | payer MEDICARE, SELFPAY | PROVIDERS: PCP Internal Medicine; Visit Provider Radiology Diagnostic Radiology | DX: M54.6 Pain in thoracic spine (principal); R26.81 Unsteadiness on feet; W19.XXXA Unspecified fall, initial encounter | CPT/HCPCS: 70450; 72072 ==

== ENCOUNTER 2024-08-26 08:21 | Outpatient (REF) | payer MEDICARE, SELFPAY ==
--- OUTSIDE RECORDS SUMMARY | 2024-08-26 08:51 | XMS_ITS ---
Author Organization [facility] Address [address] [place] [address] Care Team Providers Care Bobbin Loose End Finder Name Role Phone Parish Vincent MD Primary Care Provider Demian Bishop Unavailable [phone] REASON FOR VISIT Painful nail(s) aggrevated by shoes and causing difficulty standing/walking. 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 Patient chooses, no pharmaceutical tx (84349) Debride skin< 25 sq cm Open wound [...] symptoms of infection or any untoward reactions (64236) Keratoma Treatment Parring or Cutting o f Benign Hyperkeratotic Lesion(s) 07511 ( >4 Lesions) - The Benign hyperkeratotic lesions, as described above were pared, and/or cut utilizing a sterile #15 blade, tissue nippers, and/or dremel Progress Notes * Lucas CAMILODOB:[birth year] (84 yo M)Acc No.[id number]:02/24/2024 Progress Note Patient:?Lucas CAMILO Maximilian Provider:?Demian Christianson DPM :1940???Age:83 Y???Sex:Male Tim e:02/24/2024 Address:[address] [id number] Pcp:Parish Vincent MD Subjective: * Chief Complaints: * ???1. Painful nail(s) aggrev ated by shoes and causing difficulty standing/walking.. * HPI: ???Painful Nails:?Pt States Last PCP Visit:?Date:?09/30/2023 ?Misc:? passed 10/22.?Toe pain:?Nature:?aching, tenderness.?Location:?4th toe, Right foot.?Aggravated by:?shoes.?Treatments:?bracing/splinting/padding.?Severity/Quality:?moderate.? * ROS:?General/Constitutional:?Nausea?denies.?Vomiting?denies.?Hunger Thirst?denies.?Loss appetite?denies.?Chills?denies.?Fatigue?denies.?Fever?denies.?Night Sweats?denies.?Unexplained weight loss?denies.?Unexplained weight gain?denies.?HEENTM:?Dentures?denies.?Dizziness?denies.?Glasses/contacts?denies.?Retinopathy?de nies.?Blurred/double vision?denies.?TMJ?denies.?Discharge/drainage?denies.?Implants?denies.?Sore throat?denies.?Dental implants?denies.?Hard of hearing ?denies.?Difficulty chewing/swallowing/speaking?denies.?Nose bleeds?denies.?Sore mouth?denies.?Respiratory:?On Oxygen?denies.?Pneumonia/pleurisy?denies.?Bronchitis?denies.?Emphysema?denies.?C oughing?denies.?Cough blood?denies.?Shortness of breath?denies.?Wheezing?denies.?Cardiovascular:?Pacemaker?admits.?MVP?denies.?WPW?denies.?CHF?denies.?Heart attack?denies.?Septal defect?denies.?Rapid beat?denies.?Chest pain ?denies.?Atrial Fib.?denies.?Murmur/Palpitations?denies.?Gastrointestinal:?Hemorrhoids?denies.?Stomach/Abdominal pain?denies.?Dark blood stool?denies.?Irritable bowel ?denies.?Constipation?denies.?Diarrhea?denies.?Hematology:?Swelling?admits.?Clots?denies.?Varicose Veins?denies.?Bruising?denies.?Bleeding problem?denies.?Genitourinary:?Blood urine?denies.?Frequent/Painfu/urination/bladder control?denies.?Kidney stones?denies.?Infection (UTI)?denies.?Nephropathy?denies.?sex trans dis (STD)?denies.?Prostate?denies.?Musculoskeletal:?Hammertoes?denies.?Bunions?denies.?Back Pain?denies.?Muscle Cramps/ Resting?denies.?Muscle cramps / walking?denies.?Generalized aches and pains?admits.?Weakness?denies.?Integ.:?[place]?denies.?Scars?denies.?Corns/calluses?admits.?Ingrown nails?denies.?Painful nails?denies.?Open Sores?denies.?Rashes?denies.?Neurologic:?Difficulty sleeping?denies.?Brain disorder?denies.?Numbness?admits.?Balance trouble?denies.?Confusion?denies.?Fainting/blackouts?denies.?Tingling?admits.?Tr emors?denies.? * Medical History:? Objective: * Vitals:? * Examination: ???Nails: ?NAILS are:? Elongated, overgrown, dystrophic, lytic, greater than 3mm thick, discolored and friable with crumbly malodorous subungual debris, with dull to no pain on palpation due to neuropathy, TA, T2, T3, T4, T5, T6, T7, T8.?General Examination: ?GENERAL APPEARANCE:?pleasant, alert, well nourished, well developed, well hydrated, with good attention to hygene/body habitus, and in no acute distress.?ORIENTED:?person,place, and time.?Neurological: ?SENSORY:? Neurological exam demonstrates, reduced light touch sensation, reduced sharp/dull pin prick discrimination , reduced vibration sensation, 5.07 monofilament test performed at plantar aspects of 5 varied sites per foot shows sensation, absent, at Forefoot, at Midfoot, B/L.?Vascular: ?DP PULSES (B):?2/4, B/L.?PT PULSES (B):? 1/4, B/L.?CAPILLARY FILL TIME:?3 secs. per digit. B/L.?TEMPERTURE GRADIENT (C):?normal, B/L.?EDEMA (C):? 1/4, B/L, Feet, Ankle(s), Leg(s).?Orthopedic: ?MUSCLE STRENGTH:?5/5 all groups in a symmetrical fashion , B/L.?BUNION:? Medially prominent 1st MPJ, (+) Pain on palpation, RIGHT, Lateral tracking 1st MPJ nonreducable.?DIGITAL DEFORMITIES:? Amputation T9; semi flexible hts t8 underlapping t7.?Ophthalmology Referral: ?DIABETES EYE EXAM?Diabetic Retinopathy Screening:?Yes ?Findings of Diabetic Eye Exam:?no retinopathy?Dermatologic: ?SKIN FINDINGS:? Skin exam reveals Keratotic lesion(s) located at, Medial plantar, IPJ, T5, SUB MTH (s), 1, Right , Plantar, T8, Plantar, Heel(s), B/L ; plantar becka midfoot.?ULCER:? LOCATION-lateral left heel, SIZE, resolved.? 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 Plan: * Treatment: * Procedures:?Debride Nail 6-10:?Nail debridement?Nail debridement performed extensively to reduce/remove overall nail length and girth, subungual debris, and necrotic tissue, by manual and electrical means with use of a nail nipper and/or dremel, to more viable healthy nail plate or bed tissue 6-10. Silver nitrate used for any petechial bleeding as necessary. Patient chooses, no pharmaceutical tx (56721).?Debride skin< 25 sq cm:?Open wound?Open wound selective debridement of fibrin, devitilized epidermis [...] symptoms of infection or any untoward reactions (02237).?Keratoma Treatment:?Parring or Cutting of Benign Hyperkeratotic Lesion(s)?63175 ( >4 Lesions) - The Benign hyperkeratotic lesions, as described above were pared, and/or cut utilizing a sterile #15 blade, tissue nippers, and/or dremel.? * Procedure Codes:?05155 DEBRI DE NAIL, 6 OR MORE, Modifiers: XS , 58161 TRIM SKIN LESIONS, OVER 4, Modifiers: XS * Follow Up:?3 Months * Images: * The named appointment provid er may or may not be the originator of this progress note, and it is not deemed complete until electronically signed by the appointment provider. Sign off status: Pending * Provider:Juan Christianson DPM Date:? 024 Generated for Niya glover/Palak/Chanasmitting on:?08/26/2024 08:51 AM EST History and Physical Notes * HPI [...]
--- OUTSIDE RECORDS SUMMARY | 2024-08-26 08:51 | XMS_ITS ---
Author Organization [facility] [place] Address [address] [place] [address] Care Team Providers Care Foam Rubber Mixer Name Role Phone Melisa PEDRO, Parish Primary Care Provider Demian Bishop Unavailable [phone] Allergies Allergen (clinical drug ingredient) Drug/Non Drug Allergy documented on EMR Reaction Allergy Type Onset Date Status hydrochlorothiazide Hydrochlorothiazide cough Drug Aller gy Active lisinopril Lisinopril cough Drug Allergy Activ e REASON FOR VISIT Painful nail(s) aggrevated by shoes and causing difficulty standing/walking., Ingrown nail(s) Medications Medication SIG (Take, Route, Frequency, Duration) Notes Start Date End Date Status Potassimin Not-Takin g Doxycycline Hyclate Not-Taking Lisinopril Not-Takin g hydroCHLOROthiazide 25 MG 1 tablet Orall y Once a day Not-Taking Tamsulosin HCl 0.4 MG 1 capsule Orally Once a day Not-Taking Gabapentin 300 MG 1 capsule Orally Once a day hs for 10 days 06/17/2019 Not-Taking Keflex 500 MG 1 capsule Orally every 12 hrs for 10 day(s) 10/10/2017 Not-Taking Bactrim DS 800-160 MG 1 tablet Orally every 12 hrs for 10 day(s) 10/25/2017 Not-Taking Augmentin 500-125 MG 1 tablet Orally every 8 hrs for 10 days 01/07/2019 Not-Taking Prednisone 7.5 mg No t-Taking Ibuprofen 800 MG 1 tablet with food or milk as needed Orally Three times a day for 30 days 06/17/2019 Not-Taking Augmentin 500-125 MG 1 tablet Orally every 8 hrs; start on 07/01/2019 for 30 days 06/17/2019 Not-Taking Amoxicillin Not-Taki ng Clotrimazole-Betamethasone 1-0.05 % 1 application to affected area Externally Twice a day to affected areas on feet for 30 days 02/26/2019 Not-Taking Prednisone 1 tab Oral Not-Taki ng Bactrim DS 800-160 MG 1 tablet Orally Twice a day for 10 day(s) 10 days Not-Taking Silvadene 1 % 1 application to affected area Externally Once a day for 30 days Not-Taking Augmentin 500-125 MG 1 tablet Orally every 8 hrs for 30 days Not-Taking Vitamin E 180 MG (400 UNIT) as directed Orally Active Vitamin D3 50 MCG (2000 UT) as directed Orally Active Multi-Vitamin Active Simvastatin 20 MG 1 tablet in the evening Orally Once a day Active amLODIPine Besylate 10 MG 1 tablet Orall y Once a day Active Losartan Potassium 100 MG 1 tablet Orall y Once a day Active Custom Orthotics as directed 03/26/2024 Active Custom Molded Shoes as directed Dx: 03/26/2024 Active Social History Tobacco Use: Social History Observation Description Date Details (start date - stop date) Former Smoker NA - NA Tobacco Use/Smoking Question Answer Notes Are you a: former smoker Additional Findings: Tobacco Non-User Current no n-smoker Tobacco use other than smoking: Question Answer Notes Are you an other tobacco user? 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 ; Hallux valgus (acquired), right foot M20.11 ; Other hammer toe(s) (acquired), right foot M20.41 and Charcot's arthropathy M14.60 Assessments Encounter Date Diagnosis (ICD Code) Assessment Notes Treatment Notes Treatment Clinical Notes Section Notes 03/26/2024 Tinea unguium (ICD-10 - B35.1) 03/26/2024 Ingrowing nail (ICD-10 - L60.0) 03/26/2024 Pain in right toe(s) (ICD-10 - M79.674) 03/26/2024 Type 2 diabetes mellitus with polyneuropathy (ICD-10 - E11.42) 03/26/2024 Pain in left toe(s) (ICD-10 - M79.675) 03/26/2024 Guillain-[place] syndrome (ICD-10 - G61.0) 03/26/2024 Hallux valgus (acquired), right foot (ICD-10 - M20.11) 03/26/2024 Other hammer toe(s) (acquired), right foot (ICD-10 - M20.41) 03/26/2024 Charcot's arthropathy (ICD-10 - M14.60) Plan Of Treatment Medication Medication Name Sig Start Date Stop Date Notes Custom Orthotics as directed 03/26/2024 Custom Molded Shoes as directed Dx: 03/26/2024 Next Appt Details Follow Up: prn, Reason: Procedure Notes * Category Sub-Category Detail Notes Nail Avulsion Procedure A fine sterile e levator was used to loosen the eponychium, nail bed, nail plate and groove. A sterile nail splitter was then used to longitudinally section the nail. This section was removed. No underlying bone was identified. Procedure was performed under. Bacitracin and sterile dressings applied, local wound care instructions were dispensed. Patient was informed of both conservative and future surgical procedures to prevent recurrence Anesthesia was deferred - NEURO YOMI: patient has medically documented neuropathic condition affecting sensation Location Lateral nail border, TA Debride Nail 6-10 Nail debridement Nail debridem ent performed extensively to reduce/remove overall nail length and girth, subungual debris, and necrotic tissue, by manual and electrical means with use of a nail nipper and/or dremel, to more viable healthy nail plate or bed tissue 6-10. Silver nitrate used for any petechial bleeding as necessary. Patient chooses, no pharmaceutical tx ([id number]) Keratoma Treatment Parring or Cutting o f Benign Hyperkeratotic Lesion(s) 04814 ( >4 Lesions) - The Benign hyperkeratotic lesions, as described above were pared, and/or cut utilizing a sterile #15 blade, tissue nippers, and/or dremel Progress Notes * Lucas CAMILO JDOB:[birth year] (84 yo M)Acc No.[id number]:03/26/2024 Progress Note Patient:?Lucas CAMILO Provider:?Demian Christianson DPM :1940???Age:83 Y???Sex:Male Tim e:03/26/2024 [id number] Pcp:Parish Vincent MD Subjective: * Chief Complaints: * ??? Painful nail(s) aggrevat ed by shoes and causing difficulty standing/walking.Ingrown nail(s) * HPI: ???Painful Nails:?Pt States Last PCP Visit:?Date:?11/30/2023 ?Misc:? passed 10/22.?Toe pain:?Nature:?aching, tenderness.?Location:?4th toe, Right foot.?Aggravated by:?shoes.?Treatments:?bracing/splinting/padding.?Severity/Quality:?moderate.?Foot Pain:?Nature:?aching, sharp, swelling.?Location:?Bottom, Midfoot, LEFT.?Duration:?several months.?Onset:?overuse--pt is mowing both his and his neighbors lawns.?Course:?worse.?Aggravated:?any pressure, standing, walking.?Treatments:?change in shoes.?Severity/Quality:?severe.? * ROS:?General/Constitutional:?Nausea?denies.?Vomiting?denies.?Hunger Thirst?denies.?Loss appetite?denies.?Chills?denies.?Fatigue?denies.?Fever?denies.?Night Sweats?denies.?Unexplained weight loss?denies.?Unexplained weight gain?denies.?HEENTM:?Dentures?denies.?Dizziness?denies.?Glasses/contacts?denies.?Retinopathy?de nies.?Blurred/double vision?denies.?TMJ?denies.?Discharge/drainage?denies.?Implants?denies.?Sore throat?denies.?Dental implants?denies.?Hard of hearing ?denies.?Difficulty chewing/swallowing/speaking?denies.?Nose bleeds?denies.?Sore mouth?denies.?Respiratory:?On Oxygen?denies.?Pneumonia/pleurisy?denies.?Bronchitis?denies.?Emphysema?denies.?C oughing?denies.?Cough blood?denies.?Shortness of breath?denies.?Wheezing?denies.?Cardiovascular:?Pacemaker?admits.?MVP?denies.?WPW?denies.?CHF?denies.?Heart attack?denies.?Septal defect?denies.?Rapid beat?denies.?Chest pain ?denies.?Atrial Fib.?denies.?Murmur/Palpitations?denies.?Gastrointestinal:?Hemorrhoids?denies.?Stomach/Abdominal pain?denies.?Dark blood stool?denies.?Irritable bowel ?denies.?Constipation?denies.?Diarrhea?denies.?Hematology:?Swelling?admits.?Clots?denies.?Varicose Veins?denies.?Bruising?denies.?Bleeding problem?denies.?Genitourinary:?Blood urine?denies.?Frequent/Painfu/urination/bladder control?denies.?Kidney stones?denies.?Infection (UTI)?denies.?Nephropathy?denies.?sex trans dis (STD)?denies.?Prostate?denies.?Musculoskeletal:?Hammertoes?denies.?Bunions?denies.?Back Pain?denies.?Muscle Cramps/ Resting?denies.?Muscle cramps / walking?denies.?Generalized aches and pains?admits.?Weakness?denies.?Integ.:?[place]?denies.?Scars?denies.?Corns/calluses?admits.?Ingrown nails?denies.?Painful nails?denies.?Open Sores?denies.?Rashes?denies.?Neurologic:?Difficulty sleeping?denies.?Brain disorder?denies.?Numbness?admits.?Balance trouble?denies.?Confusion?denies.?Fainting/blackouts?denies.?Tingling?admits.?Tr emors?denies.? * Medical History:? * Surgical History:?appendecto my eye surgery - right eye 12/2017HT L2nd, Skin disorder L 07/02/19xrays RT foot ap/lat/lo 11/18/19 * Hospitalization/Major Diagno stic Procedure:?pt went to [facility] for a thang baree. * Family History:?Mother: dece ased, diagnosed with Unspecified heart disease, Unspecified cerebral artery occlusion with cerebral infarction.?Father: .?Siblings: cancer.?Spouse: .? * Social History:?Tobacco Use:?Tobacco Use/Smoking?Are you a:?former smoker ?Additional Findings: Tobacco Non-User?Current non-smoker ?Tobacco use other than smoking?Are you an other tobacco user??No ???Miscellaneous:?Caffeine: yes, frequency:, 2-3 cups per day, cup coffee per day. ?Children: yes. ?Exercise: yes, Caregiver, , gardening/yard work, walking. ?Marital status: . ?Occupation: Retired. * Medications:?TakingamLODIPin e Besylate 10 MG Tablet 1 tablet Orally Once a day Losartan Potassium 100 MG Tablet 1 tablet Orally Once a day Multi-Vitamin Simvastatin 20 MG Tablet 1 tablet in the evening Orally Once a day Vitamin E 180 MG (400 UNIT) Capsule as directed Orally Vitamin D3 50 MCG (2000 UT) Capsule as directed Orally Taking amLODIPine Besylate 10 MG Tablet 1 tablet Orally Once a day Taking Losartan Potassium 100 MG Tablet 1 tablet Orally Once a day Taking Multi-Vitamin Taking Simvastatin 20 MG Tablet 1 tablet in the evening Orally Once a day Taking Vitamin E 180 MG (400 UNIT) Capsule as directed Orally Taking Vitamin D3 50 MCG (2000 UT) Capsule as directed Orally Not-Taking/PRNSilvadene 1 % Cream 1 application to affected area Externally Once a day Augmentin 500-125 MG Tablet 1 tablet Orally every 8 hrs Bactrim DS 800-160 MG Tablet 1 tablet Orally Twice a day , Notes to Pharmacist: 10 daysClotrimazole-Betamethasone 1-0.05 % Cream 1 application to affected area Externally Twice a day to affected areas on feet Prednisone 1 tab Oral Augmentin 500-125 MG Tablet 1 tablet Orally every 8 hrs; start on 07/01/2019 Amoxicillin Ibuprofen 800 MG Tablet 1 tablet with food or milk as needed Orally Three times a day Gabapentin 300 MG Capsule 1 capsule Orally Once a day hs Augmentin 500-125 MG Tablet 1 tablet Orally every 8 hrs Prednisone 7.5 mg Keflex 500 MG Capsule 1 capsule Orally every 12 hrs Bactrim DS 800-160 MG Tablet 1 tablet Orally every 12 hrs Tamsulosin HCl 0.4 MG Capsule 1 capsule Orally Once a day Lisinopril hydroCHLOROthiazide 25 MG Tablet 1 tablet Orally Once a day Potassimin Doxycycline Hyclate Medication List reviewed and reconciled with the patientNot-Taking/PRN Silvadene 1 % Cream 1 application to affected area Externally Once a day Not-Taking/PRN Augmentin 500- 125 MG Tablet 1 tablet Orally every 8 hrs Not-Taking/PRN Bactrim DS 800-160 MG Tablet 1 tablet Orally Twice a day , Notes to Pharmacist: 10 daysNot-Taking/PRN Clotrimazole-Betamethasone 1-0.05 % Cream 1 application to affected area Externally Twice a day to affected areas on feet Not-Taking/PRN Prednisone 1 tab Oral Not-Taking/PRN Augmentin 500-125 MG Tablet 1 tablet Orally every 8 hrs; start on 07/01/2019 Not-Taking/PRN Amoxicillin Not-Taking/PRN Ibuprofen 800 MG Tablet 1 tablet with food or milk as needed Orally Three times a day Not-Taking/PRN Gabapentin 300 MG Capsule 1 capsule Orally Once a day hs Not-Taking/PRN Augmentin 500-125 MG Tablet 1 tablet Orally every 8 hrs Not-Taking/PRN Prednisone 7.5 mg Not-Taking/PRN Keflex 500 MG Capsule 1 capsule Orally every 12 hrs Not-Taking/PRN Bactrim DS 800-160 MG Tablet 1 tablet Orally every 12 hrs Not-Taking/PRN Tamsulosin HCl 0.4 MG Capsule 1 capsule Orally Once a day Not-Taking/PRN Lisinopril Not-Taking/PRN hydroCHLOROthiazide 25 MG Tablet 1 tablet Orally Once a day Not-Taking/PRN Potassimin Not-Taking/PRN Doxycycline Hyclate Medication List reviewed and reconciled with the patient * Allergies:?Lisinopril: cough - Side EffectsHydrochlorothiazide: cough - Side Effectsyes[Allergies Verified] Objective: * Vitals:?Ht: 5 ft 9 in, Wt: 2 05, BMI: 30.27, Shoe size: 8, BS: not taken, Wt-k.99 kg. * ???Past Orders: ???Lab:HEMOGLOBIN A1C (GLYCO HEMOGLOBIN) (Order Date - 03/26/2024) (Collection Date & Time - 03/26/2024 01:57 PM) ? Value Reference Range ?TOTAL HEMOGLOBIN (HGBA1C) 6.9 * Examination: ???Nails: ?NAILS are:? Elongated, overgrown, dystrophic, lytic, greater than 3mm thick, discolored and friable with crumbly malodorous subungual debris, with dull to no pain on palpation due to neuropathy, TA, T2, T3, T4, T5, T6, T7, T8.?General Examination: ?GENERAL APPEARANCE:?pleasant, alert, well nourished, well developed, well hydrated, with good attention to hygene/body habitus, and in no acute distress.?ORIENTED:?person,place, and time.?FOOT EXAM:?Lower Extremity Neurological Exam performed:?Yes ?Date?03/26/2024?Neurological: ?SENSORY:? Neurological exam demonstrates, reduced light touch [...] plantar becka midfoot.?ULCER:? LOCATION-lateral left heel, SIZE, resolved.?Ingrown Nail: ?INSPECTION:? .? 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 Plan: * Treatment: * Procedures:?Debride Nail 6-10:?Nail debridement?Nail debridement performed extensively to reduce/remove overall nail length and girth, subungual debris, and necrotic tissue, by manual and electrical means with use of a nail nipper and/or dremel, to more viable healthy nail plate or bed tissue 6-10. Silver nitrate used for any petechial bleeding as necessary. Patient chooses, no pharmaceutical tx ([id number]).?Keratoma Treatment:?Parring or Cutting of Benign Hyperkeratotic Lesion(s)?89952 ( >4 Lesions) - The Benign hyperkeratotic lesions, as described above were pared, and/or cut utilizing a sterile #15 blade, tissue nippers, and/or dremel.?Nail Avulsion:?Location?Lateral nail border, TA.?Anesthesia?was deferred - NEUROPATHY: patient has medically documented neuropathic condition affecting sensation.?Procedure?A fine sterile elevator was used to loosen the eponychium, nail bed, nail plate and groove. A sterile nail splitter was then used to longitudinally section the nail. This section was removed. No underlying bone was identified. Procedure was performed under. Bacitracin and sterile dressings applied, local wound care instructions were dispensed. Patient was informed of both conservative and future surgical procedures to prevent recurrence.? * Procedure Codes:?32369 DEBRI DE NAIL, 6 OR MORE, Modifiers: XS 66284 Avulsion Plate, Modifiers: T5 85051 TRIM SKIN LESIONS, OVER 4, Modifiers: XS * Preventive Medicine:? ??Counseling:?Discussion:?-14: Office or other outpatient visit for the evaluation and management of an established patient, which required a medically appropriate history and/or examination and MODERATE level of DECISION MAKING for: 1 OR MORE CHRONIC PROBLEM(S) THATS WORSENING, 2 STABLE CHRONIC PROBLEMS, A NEWLY DIAGNOSED PROBLEM WITH UNCERTAIN PROGNOSIS, AN ACUTE COMPLICATED INJURY WITH MULTIPLE TREATMENT OPTIONS, OR AN ACUTE PROBLEM WITH ACCOMPANYING SYSTEMIC SYMPTOMS, THAT POSE(S) A MODERATE RISK OF MORBIDITY. THIS CONDITION MAY ALSO INCLUDE RX DRUG MANAGEMENT, OR A DECISON FOR MINOR SURGERY. The visit on the day of the encounter encompassed interpreting the data and educating the patient as to the nature of their condition, treatment options available according to their individual PMH, meds, allergies, and overall health/living conditions, as well as any potential risks or complications that may occur from a failure to adhere to, and participate in, the recommended course of therapy. The discussion included a complete verbal, and/or written explanation of the examination results, any x-rays taken, the proposed diagnosis, and outline of the treatment plan. A schedule for future care needs was also explained. The patient verbalized an understanding of the instructions at this time and agreed to be an active participant in their treatment. If the patient should think of any questions or concerns after the visit, I have encouraged the patient to call the office.?Shoe Gear Counseling:?The patient and I reviewed the types of shoes they should be wearing. My recommendation included obtaining a well-fitted shoe with a good supportive, non-foldable nor twistable sole, plenty of toe/room for the forefoot, and proper arch support. Based on todays examination, I recommended the patient look for new shoes, by having their feet professionally measured. We discussed that generally the best time of the day for a shoe fitting is the afternoon. Different shoes types and brands to best match the patients occupation and vocation were discussed. Specific brand selection will be up to the patient, their individual foot condition/deformities, and fit. The patient and I reviewed the standard new shoe break in period by wearing them for a few hours a day while checking for redness or sores as wear time is increased. The patient verbally confirmed to understanding the information discussed, Rx: Extra Depth Orthopedic Shoes with 3 pair of custom heat-molded inserts.? * Follow Up:?prn * Images: * Sign off status: Completed true * Provider:?Demian Christianson DPM Date:? 024 Generated for Niya glover/Palak/eTransmitting on:?08/26/2024 08:51 AM EST History and Physical Notes * HPI (History of Present Illness) Category Sub-Category Detail Notes Category Not es Toe pain Nature: aching, tenderness Location: 4th toe, Right foot Aggravated by: shoes Treatments: bracing/splinting/pa dding Severity/Quality: moderate Painful Nails Misc: passed 10/22 Pt States Last PCP Visit: Date:: 11/30/2023 Foot Pain Nature: aching, sharp, swelling Location: Bottom, Midfoot, LEF T Duration: several months Onset: overuse--pt is mowin g both his and his neighbors lawns Course: worse Aggravated: any pressure, standi ng, walking Treatments: change in shoes Severity/Quality: severe Examination Category Sub-Category Detail Notes Category Not es Ingrown Nail INSPECTION: Neurological SENSORY: Neurological exa m demonstrates, reduced [...] hygene/body habitus, and in no acute distress FOOT EXAM: Lower Extremity Neurological Exa m performed:: Yes Date: 03/26/2024 ORIENTED: person,place, and ti me Ophthalmology Referral [...]
--- OUTSIDE RECORDS SUMMARY | 2024-08-26 08:51 | XMS_ITS ---
Author Organization [facility] [place] Address [address] [place] [address] Care Team Providers Care Cutlery Grinder Name Role Phone Melisa PEDRO, Parish Primary Care Provider Demian Bishop Unavailable [phone] Allergies Allergen (clinical drug ingredient) Drug/Non Drug Allergy documented on EMR Reaction Allergy Type Onset Date Status hydrochlorothiazide Hydrochlorothiazide cough Drug Aller gy Active lisinopril Lisinopril cough Drug Allergy Activ e REASON FOR VISIT Painful nail(s) aggrevated by shoes and causing difficulty standing/walking. Medications Medication SIG (Take, Route, Frequency, Duration) Notes Start Date End Date Status hydroCHLOROthiazide 25 MG 1 tablet Orall y Once a day Not-Taking Lisinopril Not-Takin g Doxycycline Hyclate Not-Taking amLODIPine Besylate 10 MG 1 tablet Orall y Once a day Active Potassimin Not-Takin g Prednisone 7.5 mg No t-Taking Augmentin 500-125 MG 1 tablet Orally every 8 hrs for 10 days 01/07/2019 Not-Taking Bactrim DS 800-160 MG 1 tablet Orally every 12 hrs for 10 day(s) 10/25/2017 Not-Taking Keflex 500 MG 1 capsule Orally every 12 hrs for 10 day(s) 10/10/2017 Not-Taking Tamsulosin HCl 0.4 MG 1 capsule Orally Once a day Not-Taking Gabapentin 300 MG 1 capsule Orally Once a day hs for 10 days 06/17/2019 Not-Taking Ibuprofen 800 MG 1 tablet with food or milk as needed Orally Three times a day for 30 days 06/17/2019 Not-Taking Prednisone 1 tab Oral Not-Taki ng Amoxicillin Not-Taki ng Augmentin 500-125 MG 1 tablet Orally every 8 hrs; start on 07/01/2019 for 30 days 06/17/2019 Not-Taking Vitamin D3 50 MCG (2000 UT) as directed Orally Active Augmentin 500-125 MG 1 tablet Orally every 8 hrs for 30 days Not-Taking Silvadene 1 % 1 application to affected area Externally Once a day for 30 days Not-Taking Bactrim DS 800-160 MG 1 tablet Orally Twice a day for 10 day(s) 10 days Not-Taking Clotrimazole-Betamethasone 1-0.05 % 1 application to affected area Externally Twice a day to affected areas on feet for 30 days 02/26/2019 Not-Taking Simvastatin 20 MG 1 tablet in the evening Orally Once a day Active Multi-Vitamin Active Vitamin E 180 MG (400 UNIT) as directed Orally Active Losartan Potassium 100 MG 1 tablet Orall y Once a day Active Social History Tobacco Use: Social History Observation Description Date Details (start date - stop date) Former Smoker NA - NA Tobacco Use/Smoking Question Answer Notes Are you a: former smoker Additional Findings: Tobacco Non-User Current no n-smoker Alcohol Screen Question Answer Notes Did you have a drink containing alcohol in the p ast year? No Points 0 Interpretation Negative Tobacco use other than smoking: Question Answer Notes Are you an other tobacco user? 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 ; Hallux valgus (acquired), right foot M20.11 and Other hammer toe(s) (acquired), right foot M20.41 Assessments Encounter Date Diagnosis (ICD Code) Assessment Notes Treatment Notes Treatment Clinical Notes Section Notes 11/21/2023 Tinea unguium (ICD-10 - B35.1) 11/21/2023 Ingrowing nail (ICD-10 - L60.0) 11/21/2023 Pain in right toe(s) (ICD-10 - M79.674) 11/21/2023 Type 2 diabetes mellitus with polyneuropathy (ICD-10 - E11.42) 11/21/2023 Pain in left toe(s) (ICD-10 - M79.675) 11/21/2023 Guillain-[place] syndrome (ICD-10 - G61.0) 11/21/2023 Hallux valgus (acquired), right foot (ICD-10 - M20.11) 11/21/2023 Other hammer toe(s) (acquired), right foot (ICD-10 [...] as necessary. Patient chooses, no pharmaceutical tx (78602) Debride skin< 25 sq cm Open wound [...] symptoms of infection or any untoward reactions (30587) Keratoma Treatment Parring or Cutting o f Benign Hyperkeratotic Lesion(s) 18103 ( >4 Lesions) - The Benign hyperkeratotic lesions, as described above were pared, and/or cut utilizing a sterile #15 blade, tissue nippers, and/or dremel Progress Notes * Lucas CAMILODOB:[birth year] (83 yo M)Acc No.[id number]:11/21/2023 Progress Note Patient:?Lucas Camilo Provider:?Demian Christianson DPM :1940???Age:83 Y???Sex:Male Tim e:11/21/2023 [place] Pcp:Parish Vincent MD Subjective: * Chief Complaints: * ??? Painful nail(s) aggrevat ed by shoes and causing difficulty standing/walking. * HPI: ???Painful Nails:?Pt States Last PCP Visit:?Date:?09/30/2023 ?Misc:? passed 10/22.?Toe pain:?Nature:?aching, tenderness.?Location:?4th toe, Right foot.?Aggrevated by:?shoes.?Treatments:?bracing/splinting/padding.?Severity/Quality:?moderate.? * ROS:?General/Constitutional:?Nausea?denies.?Vomiting?denies.?Hunger Thirst?denies.?Loss appetite?denies.?Chills?denies.?Fatigue?denies.?Fever?denies.?Night Sweats?denies.?Unexplained weight [...] * Hospitalization/Major Diagno stic Procedure:?pt went to [facility] for a thang baree. * Family History:?Mother: dece ased, diagnosed with Unspecified heart disease, Unspecified cerebral artery occlusion with cerebral infarction.?Father: .?Siblings: cancer.?Spouse: .? * Social History:?Tobacco Use:?Tobacco Use/Smoking?Are you a:?former smoker ?Additional Findings: Tobacco Non-User?Current non-smoker ?Tobacco use other than smoking?Are you an other tobacco user??No ???Drugs/Alcohol:?Drugs?Have you used drugs other than those for medical reasons in the past 12 months??No ?Alcohol Screen?Did you have a drink containing alcohol in the past year??No ?Points?0 ?Interpretation?Negative ???Miscellaneous:?Caffeine: yes, frequency:, 2-3 cups per day, cup coffee per day. ?Children: yes. ?Exercise: yes, Caregiver, , gardening/yard work, walking. ?Marital status: . ?Occupation: Retired. * Medications:?TakingamLODIPin e Besylate 10 MG Tablet 1 tablet Orally Once a dayLosartan Potassium 100 MG Tablet 1 tablet Orally Once a dayMulti-Vitamin Simvastatin 20 MG Tablet 1 tablet in the evening Orally Once a dayVitamin E 180 MG (400 UNIT) Capsule as directed Orally Vitamin D3 50 MCG (2000 UT) Capsule as directed Orally Taking amLODIPine Besylate 10 MG Tablet 1 tablet Orally Once a dayTaking Losartan Potassium 100 MG Tablet 1 tablet Orally Once a dayTaking Multi-Vitamin Taking Simvastatin 20 MG Tablet 1 tablet in the evening Orally Once a dayTaking Vitamin E 180 MG (400 UNIT) Capsule as directed Orally Taking Vitamin D3 50 MCG (2000 UT) Capsule as directed Orally Not-Taking/PRNSilvadene 1 % Cream 1 application to affected area Externally Once a dayAugmentin 500-125 MG Tablet 1 tablet Orally every 8 hrsBactrim DS 800-160 MG Tablet 1 tablet Orally Twice a day, Notes: 10 daysClotrimazole-Betamethasone 1-0.05 % Cream 1 application to affected area Externally Twice a day to affected areas on feetPrednisone 1 tab Oral Augmentin 500-125 MG Tablet 1 tablet Orally every 8 hrs; start on 07/01/2019Amoxicillin Ibuprofen 800 MG Tablet 1 tablet with food or milk as needed Orally Three times a dayGabapentin 300 MG Capsule 1 capsule Orally Once a day hsAugmentin 500-125 MG Tablet 1 tablet Orally every 8 hrsPrednisone 7.5 mg Keflex 500 MG Capsule 1 capsule Orally every 12 hrsBactrim DS 800-160 MG Tablet 1 tablet Orally every 12 hrsTamsulosin HCl 0.4 MG Capsule 1 capsule Orally Once a dayLisinopril hydroCHLOROthiazide 25 MG Tablet 1 tablet Orally Once a dayPotassimin Doxycycline Hyclate Medication List reviewed and reconciled with the patientNot-Taking/PRN Silvadene 1 % Cream 1 application to affected area Externally Once a dayNot-Taking/PRN Augmentin 500-125 MG Tablet 1 tablet Orally every 8 hrsNot-Taking/PRN Bactrim DS 800-160 MG Tablet 1 tablet Orally Twice a day, Notes: 10 daysNot-Taking/PRN Clotrimazole-Betamethasone 1-0.05 % Cream 1 application to affected area Externally Twice a day to affected areas on feetNot-Taking/PRN Prednisone 1 tab Oral Not-Taking/PRN Augmentin 500-125 MG Tablet 1 tablet Orally every 8 hrs; start on 07/01/2019Not-Taking/PRN Amoxicillin Not- Taking/PRN Ibuprofen 800 MG Tablet 1 tablet with food or milk as needed Orally Three times a dayNot-Taking/PRN Gabapentin 300 MG Capsule 1 capsule Orally Once a day hsNot-Taking/PRN Augmentin 500-125 MG Tablet 1 tablet Orally every 8 hrsNot-Taking/PRN Prednisone 7.5 mg Not-Taking/PRN Keflex 500 MG Capsule 1 capsule Orally every 12 hrsNot-Taking/PRN Bactrim DS 800-160 MG Tablet 1 tablet Orally every 12 hrsNot-Taking/PRN Tamsulosin HCl 0.4 MG Capsule 1 capsule Orally Once a dayNot-Taking/PRN Lisinopril Not-Taking/PRN hydroCHLOROthiazide 25 MG Tablet 1 tablet Orally Once a dayNot-Taking/PRN Potassimin Not-Taking/PRN Doxycycline Hyclate Medication List reviewed and reconciled with the patient * Allergies:?Lisinopril: cough - Side EffectsHydrochlorothiazide: cough - Side Effectsyes[Allergies Verified] Objective: * Vitals:?Ht: 5 ft 9 in, Wt: 1 90, BMI: 28.06, Shoe size: 8, BP: 130/78 mm Hg, BS: not taken, Wt-k.18 kg. * ???Past Orders: ???Lab:HEMOGLOBIN A1C (GLYCO HEMOGLOBIN) (Order Date - 04/12/2022) (Collection Date - 02/17/2022) ? Value Reference Range ?HEMOGLOBIN A1C (HH) 6.8 * Examination: ???Nails: ?NAILS are:? Elongated, overgrown, [...] absent, at Forefoot, at Midfoot, B/L.?Vascular: ?DP PULSES:?08/04, B/L.?PT PULSES:? 07/04, B/L.?CAPILLARY FILL TIME:?3 secs. per digit. B/L.?SKIN TEMPERTURE GRADIENT OF THE LOWER EXTERMITIES:?normal, B/L.?EDEMA:? 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 Plan: * Treatment: * Procedures:?Debride Nail 6-10:?Nail debridement?Nail debridement performed extensively to reduce/remove overall nail length and girth, subungual debris, and necrotic tissue, by manual and electrical means with use of a nail nipper and/or dremel, to more viable healthy nail plate or bed tissue 6-10. Silver nitrate used for any petechial bleeding as necessary. Patient chooses, no pharmaceutical tx (22895).?Debride skin< 25 sq cm:?Open wound?Open wound selective [...] symptoms of infection or any untoward reactions (73973).?Keratoma Treatment:?Parring or Cutting of Benign Hyperkeratotic Lesion(s)?58385 ( >4 Lesions) - The Benign hyperkeratotic lesions, as described above were pared, and/or cut utilizing a sterile #15 blade, tissue nippers, and/or dremel.? * Procedure Codes:?99216 DEBRI DE NAIL, 6 OR MORE, Modifiers: XS 09533 TRIM SKIN LESIONS, OVER 4, Modifiers: XS * Follow Up:?3 Months * Images: * Sign off status: Completed true * Provider:?Demian Christianson DPM Date:? 024 Generated for Umai ng/Faambikag/eTransmitting on:?08/26/2024 08:51 AM EST History and Physical [...]
--- OUTSIDE RECORDS SUMMARY | 2024-08-26 08:52 | XMS_ITS | Clinical Summary ---
Author Organization [facility] Address [address] [place] [address] Phone Care Team Providers Care Promotions Assistant Sales Marketing Name Role Phone Parish Vincent MD Primary Care Provider [phone] Allergies Active Allergy Reactions Criticality Noted Date Comments Lisinopril 09/13/2021 Medications flintstones complete (Multi-Vitamins with Iron) chewable tablet Take by mouth. Active amLODIPine-atorv astatin (CADUET) 10-10 mg per tablet Take 1 tablet by mouth 1 (one) time each day. Active losartan (COZAAR) 100 mg tablet Take 100 mg by mouth daily. Active simvastatin (ZOCOR) 20 mg tablet Take 1 tablet (20 mg total) by mouth at bedtime. 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 (CMS/HCC); Bilateral femoral artery stenosis (CMS/HCC) from Last 3 Months Social History Tobacco Use Types Packs/Day Years Used Date Smoking Tobacco: Former Smokeless Tobacco: Former Alcohol Use Standard Drinks/Week Comments Never 0 (1 standard drink = 0.6 oz pur e alcohol) Sex and Gender Information Value Date Recorded Sex Assigned at Not on file Legal Sex Male 4:23 PM EST Gender Identity Not on file Sexual Orientation Not on file Obstetrics History Last Filed Vital Signs Vital Sign Reading Time Taken Comments Blood Pressure - - Pulse - - Temperature - - Respiratory Rate - - Oxygen Saturation - - Inhaled Oxygen Concentration - - Weight 92.1 kg (203 lb) 08/03/2024 1:29 PM EST Height 175.3 cm (5' 9.02 ) 08/03/2024 1:29 PM ES T Body Mass Index 29.96 08/03/2024 1:29 PM EST Plan of Treatment Upcoming Encounters Date Type Department Care Team ([facility] st Contact Info) Description 11/03/2024 1:30 PM EDT Office Visit Orthopedic Surgery - [place] [address] [phone] Skip Christianson, DPM [address] [address] Health Maintenance Due Date Last Done Comments Zoster Vaccines (1 of 2) 1990 Pneumococcal Vaccine: 50+ Years (2 of 2 - PCV) 06/20/2016 06/20/2015 Cholesterol Screening (Lipid Panel) 05/30/2022 Depression Screening 05/30/2022 Falls Risk Assessment 05/30/2022 Medicare Annual Wellness Visit 05/30/2022 Social Influencers of Health Screening 05/30/2022 DTaP,Tdap,and Td Vaccines (2 - Td or Tdap) 03/29/2026 03/29/2016 COVID-19 Vaccine Completed 03/21/2024, , 04/10/2022, Additional history exists Influenza Vaccine Completed 03/21/2024, , 04/10/2022, Additional history exists RSV Immunization Patients 60+ Years Old Completed 03/21/2024 HIB Vaccines Aged Out No longer eligi ble based on patient's age to complete this topic HPV Vaccines Aged Out No longer eligi ble based on patient's age to complete this topic Hepatitis A Vaccines Aged Out No long er eligible based on patient's age to complete this topic Hepatitis B Vaccines Aged Out No long er eligible based on patient's age to complete this topic IPV Vaccines Aged Out No longer eligi ble based on patient's age to complete this topic MMR Vaccines Aged Out No longer eligi ble based on patient's age to complete this topic Meningococcal ACWY Vaccine Aged Out N o longer eligible based on patient's age to complete this topic Meningococcal B Vacine Aged Out No lo nger eligible based on patient's age to complete this topic RSV Immunization Patients Under 20 months Aged Out No longer eligible based on patient's age to complete this topic Varicella Vaccines Aged Out No longer eligible based on patient's age to complete this topic Insurance [employer] Care Teams Promotions Assistant Sales Marketing Relationship Specialty Start Date End Date Parish Vincent MD [address] [place], [place] [id number] PCP - General Internal Medicine 09/12/21
--- OUTSIDE RECORDS SUMMARY | 2024-08-26 08:52 | XMS_ITS | Encounter Summary ---
Author Organization [facility] Address [address] [place] [address] Care Team Providers Care Marketing Teacher Name Role Phone Parish Vincent MD Primary Care Provider [phone] Reason for Visit * Reason Comments Consult Nail care Encounter Details Date Type Department Care Team (Late st Contact Info) Description 08/03/2024 1:30 PM EST Consult Orthopedic Surgery - [place] [address] [phone] Skip Christianson DPM [address] [address] Dermatophytosis of nail (Primary Dx); Pain in toe of right foot; Pain in toe of left foot; Corns and callosities; Metatarsalgia of both feet; Neuropathy; Guillain-Fidelity disease (CMS/HCC); Bilateral femoral artery stenosis (CMS/HCC) Social History Tobacco Use Types Packs/Day Years Used Date Smoking Tobacco: Former Smokeless Tobacco: Former Alcohol Use Standard Drinks/Week Comments Never 0 (1 standard drink = 0.6 oz pur e alcohol) Sex and Gender Information Value Date Recorded Sex Assigned at Not on file Legal Sex Male 4:23 PM EST Gender Identity Not on file Sexual Orientation Not on file documented as of this encounter Last Filed Vital Signs Vital Sign Reading Time Taken Comments Blood Pressure - - Pulse - - Temperature - - Respiratory Rate - - Oxygen Saturation - - Inhaled Oxygen Concentration - - Weight 92.1 kg (203 lb) 08/03/2024 1:29 PM EST Height 175.3 cm (5' 9.02 ) 08/03/2024 1:29 PM ES T Body Mass Index 29.96 08/03/2024 1:29 PM EST documented in this encounter Progress Notes * Skip Christianson DPM - 08/03/2024 1:30 PM EST Last PCP visit:Referring MD: Parish Vincent MD 07/16/2023 S Resents for evaluation 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 and peripheral vascular disease has a long and painful thickened nails collapses of both arches he has had chronic custom orthotics and insoles is referred today due to retiring provider in their practice ROS: GENERAL: Pt denies nausea, fever, vomiting, chills, or shortness of breath. Pt in NAD. CARDIOLOGY: pt denies chest pain, palpitations LUNGS: pt denies shortness of breath MUSCULOSKELETAL: See HPI, otherwise no joint pain or swelling, back pain, or muscle pain. SKIN: see HPI, otherwise no lesions, rash or itching NEURO: No persistent headache, weakness or numbness The remainder of the review of systems is noncontributory PAST MEDICAL HISTORY: There is no problem list on file for this patient. [place] Tamez?? syndrome SOCIAL HISTORY: Social History Tobacco Use Smoking status: Former Smokeless tobacco: Former Substance Use Topics Alcohol use: Never ACTIVE MEDICATIONS: Outpatient Medications Marked as Taking for the 08/03/24 encounter (Consult) with Skip Christianson DPM Medication Sig Dispense Refill amLODIPine-atorvastatin (CADUET) 10-10 mg per tablet Take 1 tablet by mouth 1 (one) time each day. flintstones complete (Multi-Vitamins with Iron) chewable tablet Take by mouth. losartan (COZAAR) 100 mg tablet Take 100 mg by mouth daily. simvastatin (ZOCOR) 20 mg tablet Take 1 tablet (20 mg total) by mouth at bedtime. ALLERGIES: Allergies Allergen Reactions Lisinopril PHYSICAL EXAM: Visit Vitals Ht 1.753 m (69.02 ) Wt 92.1 kg (203 lb) BMI 29.96 kg/m?? Smoking Status Former BSA 2.08 m?? PODIATRIC EXAMINATION: GENERAL: Patient appears well nourished, with NAD. VASCULAR: Dorsalis pedis pulses are 2/4 bilaterally and Posterior tibial pulses are 2/4 bilaterally. Capillary filling time within normal limits the digits. No pallor on elevation or rubor on dependency. No varicosities. Denies rest pain or claudication pain. History of amputation right fifth digit NEUROLOGICAL: Sharp/dull sensation intact, protective sensation intact 10/10 with 5.07 semmes kendrick bilaterally, vibratory sensation with tuning fork intact to the tibial tuberosity. ORTHOPEDIC: Good muscle strength 5/5 of all flexors and extensors. Dorsi flexion of ankle ,10 degrees, plantar flexion WNL. No muscle atrophy. DERMATOLOGICAL: Toenails: Left Toenail(s) 1-5: Crumbling upon debridement, subungual debris, discoloration, dystrophy, elongation, mycotic appearance, onychomycosis, pain and thickening. Right Toenail(s) 1-5: Crumbling upon debridement, subungual debris, discoloration, dystrophy, elongation, mycotic appearance, onychomycosis, pain and thickening. Annular scaling bilateral feet moccasin distribution Skin thinning texture shiny appearance diffuse hyperpigmentation bilaterally pedal hair decreased Hyperkeratotic tissue balls of both feet BIOMECHANICS: Ankle ROM WNL, STJ ROM dislocation subluxation heterotrophic bone formation medial arch collapse bilateral, MTJ ROM wnl, 1st MPJ ROM wnl. Previous amputation right fifth digit IMAGING: IMPRESSION: 1. Dermatophytosis of nail 2. Pain in toe of right foot 3. Pain in toe of left foot 4. Corns and callosities 5. Metatarsalgia of both feet 6. Neuropathy 7. Guillain-Fidelity disease (CMS/HCC) PLAN: Pt was seen and examined, history reviewed. X-ray ordered both feet 3 views Continue with custom orthotics and insoles for severe pedal deformities Further treatment options were discussed reviewed current without open sores or wounds At risk footcare reviewed Follow-up in 2 to 3 months Debridement of mycotic toenails 6-10: Verbal informed consent was obtained from the patient. Greater than 6 nails were aseptically debrided in thickness and length with nail nippers Hyperkeratotic tissue debrided pared with a number #15 scalpel blade x2 Skip Christianson DPM documented in this encounter Plan of Treatment Upcoming Encounters Date Type Department Care Team (Late st Contact Info) Description 11/03/2024 1:30 PM EDT Office Visit Orthopedic Surgery - [place] [address] [phone] Skip Christianson, DPM [address] [phone] documented as of this encounter Visit Diagnoses Diagnosis Dermatophytosis of nail- Primary Pain in toe of right foot Pain in soft tissues of limb Pain in toe of left foot Pain in soft tissues of limb Corns and callosities Metatarsalgia of both feet Neuropathy Mononeuritis of unspecified site 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
[2024-08-26 09:18] LABS: Estimated Average Glucose 146 mg/dL; Hemoglobin A1C 198.9274 umol/L; Hemoglobin A1c % 6.7 % (<6.0); Total Hemoglobin (HGBA1C) 4034.0967 umol/L
[2024-08-26 09:43] LABS: Cholesterol 135 mg/dL (<200); Glucose Fasting 142 mg/dL (60-99); HDL Cholesterol 44 mg/dL (>40); LDL Cholesterol Calculated 65 mg/dL (<100); Triglycerides 133 mg/dL (<150)
== END 2024-08-26 08:22 | disposition home or self-care (01) ==
LOC: HO.LAB 08:21
PROVIDERS: PCP Internal Medicine; Visit Provider Internal Medicine
DX: Z13.220 Encounter for screening for lipoid disorders (principal); R73.01 Impaired fasting glucose
CPT/HCPCS: 36415; 80061; 82947; 83036

== ENCOUNTER 2024-08-28 11:16 | Outpatient (AMB) | payer MEDICARE, SELFPAY ==
--- NOTE | 2024-08-28 11:27 | A.OFFPC_ITS ---
Vital Signs 08/28/24 11:28 Height 5 ft 9 in Weight 202 lb 4 oz BMI 29.9 BP 130/76 Blood Pressure Location Lt brachial Position Sitting Pulse 82 Pulse Source Pulse Oximeter Temp 97.3 F Temp Source Temporal Artery Scan Pulse Oximetry (%) 95 Oxygen Delivery Method Room Air Intake Visit Reasons: 3 month f/u - see comments Intake Note: Patient is here to follow up on HTN. Refractive Surgeon Required: No Vinyl Cutter: Not Required per policy Accompanied by: Self / Same As Patient Allergies hydrochlorothiazide [HCTZ] Allergy (Mild, Verified 08/28/24 11:28) ADVISED PATIENT NOT TO TAKE AGAIN TABITHA Inhibitors Allergy (Unknown, Verified 08/28/24 11:28) Unknown lisinopril [LISINOPRIL] Allergy (Unknown, Verified 08/28/24 11:28) COUGH Medication List - Last Reconciled 08/31/24 by Parish Vincent MD amlodipine 10 mg PO DAILY losartan 100 mg PO DAILY simvastatin 20 mg PO BEDTIME Tobacco use date assessed: 08/28/24 Fall risk assessment: No Falls in past year Last assessed Fall Risk: 08/28/24 Dental Screening Dental Screen Date: 08/28/24 Did you have a dental visit in the last 12 months?: Yes Did you have a dental problem in the last 6 months where you did not have access to dental care?: No Was dental information given to patient?: Patient has dentist HPI 3 month f/u - see comments HPI Details hypertension and hyperlipidemia; stable and compliant [facility] Medical History Hyperlipidemia Hypertension Surgical History 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 1. Little interest or pleasure in doing things: not at all 2. Feeling down, depressed, or hopeless: not at all 3. Trouble falling or staying asleep, or sleeping too much: not at all 4. Feeling tired or having little energy: not at all 5. Poor appetite or overeating: not at all 6. Feeling bad about yourself - or that you are a failure or have let yourself or your family down: not at all 7. Trouble concentrating on things, such as reading the newspaper or watching television: not at all 8. Moving or speaking so slowly that other people could have noticed. Or the opposite - being so fidgety or restless that you have been moving around a lot more than usual: not at all 9. Thoughts that you would be better off or of hurting yourself in some way: not at all Total score: 0 Depression Screening Interpretation: Negative Depression Screening Done: Yes Source: Developed by Drs. Luis Garnett, Melony Leon, Elie Iniguez and colleagues, with an educational negrito from [employer]. Thrive Questionnaire Date Thrive assessed: 08/28/24 I am a: Patient What is your living situation today?: I have a steady place to live Within the past 12 months, did the food you bought not last and you didn't have the money to get more?: Never true Within the past 12 months, did you worry whether your food would run out before you got money to buy more?: Never true Do you have trouble paying for medicines?: No Do you have trouble getting transportation to medical appointments?: No Do you have trouble paying your heating and electricity bill?: No Do you have trouble taking care of your child, family member or friend?: No Do you have trouble with day-to-day activities such as bathing, preparing meals, shopping, managing finances, etc.?: No Are you currently unemployed and looking for a job?: No Are you interested in more education?: No Please select the resources that you would like help with: None Currently or been in a relationship where the following occur: No concerns reported THRIVE Score: 0 AUDIT C Alcohol Use Questionnaire (AUDIT-C) 1. How often do you have a drink containing alcohol?: Never Total Score: 0 TAMMIE-7 AMB Questionnaire TAMMIE-7 Date TAMMIE - 7 assessed: 08/28/24 Feeling nervous, anxious, or on edge: 0 = Not at all Not being able to stop or control worryin = Not at all Worrying too much about different things: 0 = Not at all Trouble relaxin = Not at all Being so restless that it is hard to sit still: 0 = Not at all Becoming easily annoyed or irritable: 0 = Not at all Feeling afraid as if something awful might happen: 0 = Not at all Total TAMMIE-7 score (0-4 normal; 5-9 mild; 10-14 moderate; 15-21 severe): 0 Source: Developed by Drs. Luis Garnett, Melony Leon, Elie Iniguez and colleagues, with an educational negrito from [employer]. Review of Systems Const Denies chills, Denies headache(s) and Denies weight loss ENT Denies headache(s) Card Denies chest pain, Denies syncope, Denies irregular heart rhythm and Denies dyspnea Resp Denies chest congestion, Denies cough and Denies dyspnea GI Denies abdominal pain, Denies change in stool character, Denies nausea and Denies vomiting Musc Denies deformity and Denies joint swelling Neuro Denies syncope and Denies headache(s) Physical exam (Primary Care) Vital Signs: Last Vital Signs Temp 97.3 F 08/28/24 11:28 Pulse 82 08/28/24 11:28 BP 130/76 08/28/24 11:28 Pulse Ox 95 08/28/24 11:28 Oxygen Delivery Method Room Air 08/28/24 11:28 BMI result Body Mass Index 29.9 Tobacco/Smoking Status: Tobacco use Status Tobacco use date assessed 08/28/24 08/28/24 11:32 Patient Tobacco Use Status Never used Tobacco 08/28/24 11:32 Tobacco use type Cigarette 08/28/24 11:32 e-Cigarette/Vaping Use Never Used 08/28/24 11:32 PHQ-9: PHQ-9 Score PHQ-9: Total score 0 08/28/24 11:32 Depression Screening Interpretation: Negative Thrive Assessment: Date of Thrive Assessment Date Thrive assessed 08/28/24 08/28/24 11:32 Currently or been in a relationship where the following occur: No concerns reported Const General: cooperative, comfortable, no acute distress and alert Neck Neck: Yes no lymphadenopathy Thyroid: Thyroid normal Resp Effort & Inspection: normal respiratory effort Auscultation: clear to auscultation bilaterally Percussion: percussion normal Cardio Jugular venous distension: no JVD Palpation: normal PMI Rate: regular rate Rhythm: regular rhythm Heart sounds: S1 normal heart sound present and S2 normal heart sound present GI Inspection: Yes normal to inspection Palpation (GI): No hepatosplenomegaly present Skin General skin exam: no rashes or lesions noted Extrem General: Yes no clubbing, cyanosis or edema Coding Level of Care Code Est Pt Level 3 (91470) Diagnoses Hypertension I10 Assessment & Plan Assessment & Plan (1) Hypertension: Code(s): I10 - Essential (primary) hypertension Category: Medical Plan: stable; same rx
[2024-08-28 11:28] VITALS: BP 130/76; PULSE 82; TEMP 36.3; O2SAT 95; BMI 29.9
--- OUTSIDE RECORDS SUMMARY | 2024-08-28 13:18 | XMS_ITS ---
Author Organization [facility] [place] Address [address] [facility] [place] [address] Care Team Providers Care Family Reunification Specialist Name Role Phone Melisa PEDRO, Parish Primary Care Provider Demian Bishop Unavailable [phone] Allergies Allergen (clinical drug ingredient) Drug/Non Drug Allergy documented on EMR Reaction Allergy Type Onset Date Status hydrochlorothiazide Hydrochlorothiazide cough Drug Aller gy Active Lisinopril cough Drug Allergy Active REASON FOR VISIT Painful nail(s) aggrevated by [...] Problem Status W/U Status Risk Notes Problem [id number] 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) Active confirmed Vital Signs Height 5 ft 9 in in 03/26/2024 Weight 205 lbs 03/26/2024 BMI 30.27 kg/m2 03/26/2024 Encounters Encounter Location Date Provider Diagnosis [facility] [place] [address] [place] [address] 03/26/2024 Demian Christianson Tinea unguium B35.1 ; Ingrowing nail L60.0 ; Pain in right toe(s) M79.674 ; 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 Patient chooses, no pharmaceutical tx (66647) Keratoma Treatment Parring or Cutting o f Benign Hyperkeratotic Lesion(s) 57092 ( >4 Lesions) - The Benign hyperkeratotic lesions, as described above were pared, and/or cut utilizing a sterile #15 blade, tissue nippers, and/or dremel Progress Notes * Lucas CAMILODOB:[birth year] (84 yo M)Acc No.[id number]:03/26/2024 Progress Note Patient:?Lucas CAMILO Provider:?Demian Christianson DPM :1940???Age:83 Y???Sex:Male Tim e:03/26/2024 Address:[address] [place] [phone] Pcp:Parish Vincent MD Subjective: * Chief Complaints: [...] * Hospitalization/Major Diagno stic Procedure:?pt went to [facility] for a thang baree. * Family [...] B/L.?Vascular: ?DP PULSES (B):?2/4, B/L.?PT PULSES (B):? 14, B/L.?CAPILLARY FILL TIME:?3 secs. per digit. B/L.?TEMPERTURE [...] - E11.42???5.?Pain in left toe(s) - M79.675???6. Guillain-[place] syndrome - G61.0???7.?Hallux valgus (acquired), right foot [...] as necessary. Patient chooses, no pharmaceutical tx (81531).?Keratoma Treatment:?Parring or Cutting of Benign Hyperkeratotic Lesion(s)?24489 ( >4 Lesions) - The Benign hyperkeratotic [...] surgical procedures to prevent recurrence.? * Procedure Codes:?69178 DEBRI DE NAIL, 6 OR MORE, Modifiers: XS 46231 Avulsion Plate, Modifiers: T5 64974 TRIM SKIN LESIONS, OVER 4, Modifiers: XS [...] DPM Date:? 024 Generated for Niya glover/Palak/eTransmitting on:?08/28/2024 01:18 PM EST History and Physical Notes * [...] Yes Date: 03/26/2024 ORIENTED: person,place, and ti wy Ophthalmology Referral DIABETES EYE EXAM Diabetic Retinopa [...]
--- OUTSIDE RECORDS SUMMARY | 2024-08-28 13:19 | XMS_ITS ---
Author Organization [facility] [place] Address [address] [facility] [place] [address] Care Team Providers Care Direct Chill Casting Operator Name Role Phone Melisa PEDRO, Parish Primary Care Provider Demian Bishop Unavailable [phone] Allergies Allergen (clinical drug ingredient) Drug/Non Drug [...] 024 Encounters Encounter Location Date Provider Diagnosis [facility] [place] [address] [place] [address] 11/21/2023 Demian Christianson Tinea unguium B35.1 ; Ingrowing nail L60.0 ; Pain in right toe(s) M79.674 ; 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 Patient chooses, no pharmaceutical tx (25655) Debride skin< 25 sq cm Open wound [...] symptoms of infection or any untoward reactions (75047) Keratoma Treatment Parring or Cutting o f Benign Hyperkeratotic Lesion(s) 55946 ( >4 Lesions) - The Benign hyperkeratotic lesions, as described above were pared, and/or cut utilizing a sterile #15 blade, tissue nippers, and/or dremel Progress Notes * Lucas CAMILO JDOB:[birth year] (83 yo M)Acc No.[id number]:11/21/2023 Progress Note Patient:?Lucas Camilo Provider:?Demian Christianson DPM :1940???Age:83 Y???Sex:Male Tim e:11/21/2023 [phone] Pcp:Parish Vincent MD Subjective: * Chief Complaints: [...] * Hospitalization/Major Diagno stic Procedure:?pt went to [facility] for a thang baree. * Family History:?Mother: [...] polyneuropathy - E11.42?5.?Pain in left toe(s) - M79.675?6.?Guillain-[place] syndrome - G61.0?7.?Hallux valgus (acquired), right foot [...] as necessary. Patient chooses, no pharmaceutical tx (71828).?Debride skin< 25 sq cm:?Open wound?Open wound selective [...] symptoms of infection or any untoward reactions (02228).?Keratoma Treatment:?Parring or Cutting of Benign Hyperkeratotic Lesion(s)?74782 ( >4 Lesions) - The Benign hyperkeratotic lesions, as described above were pared, and/or cut utilizing a sterile #15 blade, tissue nippers, and/or dremel.? * Procedure Codes:?83632 DEBRI DE NAIL, 6 OR MORE, Modifiers: XS 34836 TRIM SKIN LESIONS, OVER 4, Modifiers: XS * Follow Up:?3 Months * Images: * Sign off status: Completed true * Provider:?Demian Christianson DPM Date:? 024 Generated for Printi ng/Faxing/eTransmitting on:?08/28/2024 01:18 PM EST History and Physical [...]
--- OUTSIDE RECORDS SUMMARY | 2024-08-28 13:19 | XMS_ITS | Encounter Summary ---
Author Organization [facility] Address [address] [place] [phone] Care Team Providers Care Vacuum Furnace Operator Name Role Phone Parish Vincent MD Primary Care Provider [phone] Reason for Visit * Reason Comments Consult Nail care Encounter Details Date Type Department Care Team (Late st Contact Info) Description 08/03/2024 1:30 PM EST Consult [facility] [place] [address] [phone] Skip Christianson DPM [address] [address] Dermatophytosis of nail (Primary Dx); Pain in toe of right foot; Pain in toe of left foot; Corns and callosities; Metatarsalgia of both feet; Neuropathy; 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 Neuropathy 7. 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
--- OUTSIDE RECORDS SUMMARY | 2024-08-28 13:19 | XMS_ITS ---
Author Organization [facility] Address [address] [place] [address] Care Team Providers Care Chief Librarian Branch Name Role Phone Parish Vincent MD Primary Care Provider Demian Bishop Unavailable [phone] REASON FOR VISIT Painful nail(s) aggrevated by shoes and causing difficulty standing/walking. 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 Patient chooses, no pharmaceutical tx (37115) Debride skin< 25 sq cm Open wound [...] symptoms of infection or any untoward reactions (10818) Keratoma Treatment Parring or Cutting o f Benign Hyperkeratotic Lesion(s) 01942 ( >4 Lesions) - The Benign hyperkeratotic lesions, as described above were pared, and/or cut utilizing a sterile #15 blade, tissue nippers, and/or dremel Progress Notes * Lucas CAMILODOB:[birth year] (84 yo M)Acc No.[id number]:02/24/2024 Progress Note Patient:?Lucas CAMILO Maximilian Provider:?Demian Christianson DPM :1940???Age:83 Y???Sex:Male Tim e:02/24/2024 Address:[place] [id number] Pcp:Parish Vincent MD Subjective: * Chief Complaints: [...] - E11.42???5.?Pain in left toe(s) - M79.675???6. Guillain-[place] syndrome - G61.0???7.?Hallux valgus (acquired), right foot [...] as necessary. Patient chooses, no pharmaceutical tx (43756).?Debride skin< 25 sq cm:?Open wound?Open wound selective [...] symptoms of infection or any untoward reactions (86509).?Keratoma Treatment:?Parring or Cutting of Benign Hyperkeratotic Lesion(s)?67917 ( >4 Lesions) - The Benign hyperkeratotic lesions, as described above were pared, and/or cut utilizing a sterile #15 blade, tissue nippers, and/or dremel.? * Procedure Codes:?40415 DEBRI DE NAIL, 6 OR MORE, Modifiers: XS , 04353 TRIM SKIN LESIONS, OVER 4, Modifiers: XS * Follow Up:?3 Months * Images: * The named appointment provid er may or may not be the originator of this progress note, and it is not deemed complete until electronically signed by the appointment provider. Sign off status: Pending * Provider:Juan Christianson DPM Date:? 024 Generated for Niya glover/Palak/Chanasmitting on:?08/28/2024 01:19 PM EST History and Physical Notes * [...]
--- OUTSIDE RECORDS SUMMARY | 2024-08-28 13:19 | XMS_ITS | Clinical Summary ---
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
== END 2024-08-28 11:46 | disposition home or self-care (01) ==
PROVIDERS: PCP Internal Medicine; Visit Provider Internal Medicine
DX: I10 Essential (primary) hypertension (principal)

== ENCOUNTER → 2024-08-28 11:16 | Outpatient (BNVA) | payer MEDICARE, SELFPAY | PROVIDERS: PCP Internal Medicine; Visit Provider Internal Medicine | DX: I10 Essential (primary) hypertension (principal) | CPT/HCPCS: 99212 ==

== ENCOUNTER 2024-11-21 07:11 | Outpatient (REF) | payer MEDICARE, SELFPAY ==
[2024-11-21 08:04] LABS: Estimated Average Glucose 146 mg/dL; Hemoglobin A1C 196.9955 umol/L; Hemoglobin A1c % 6.7 % (<6.0); Total Hemoglobin (HGBA1C) 3953.4712 umol/L
[2024-11-21 08:11] LABS: Creatinine Urine 73.89 mg/dL; Microalbum/Creatinine Ratio Ur 48.7 ug/mg cr (<30)
[2024-11-21 08:18] LABS: Alanine Aminotransferase 36 U/L (0-40); Anion Gap 12 (12-20); Aspartate Amino Transferase 33 U/L (5-37); Blood Urea Nitrogen 15 mg/dL (9-16); Calcium 9.1 mg/dL (8.4-10.2); Carbon Dioxide 27 mmol/L (22-29); Chloride 104 mmol/L (96-108); Cholesterol 155 mg/dL (<200); Estimated Glomerular Filt Rate > 60; Glucose Fasting 135 mg/dL (60-99); HDL Cholesterol 41 mg/dL (>40); LDL Cholesterol Calculated 84 mg/dL (<100); Potassium 4.2 mmol/L (3.3-5.1); Sodium 139 mmol/L (135-145); Triglycerides 151 mg/dL (<150)
[2024-11-21 08:34] LABS: Vitamin D 25-OH Total 61.8 ng/mL (>30)
== END 2024-11-21 07:12 | disposition home or self-care (01) ==
LOC: HO.LAB 07:11
PROVIDERS: PCP Internal Medicine; Visit Provider Internal Medicine
DX: E78.5 Hyperlipidemia, unspecified (principal); I10 Essential (primary) hypertension; R73.01 Impaired fasting glucose
CPT/HCPCS: 36415; 80048; 80061; 82043; 82306; 82570; 83036; 84450; 84460

== ENCOUNTER 2024-11-30 14:24 | Outpatient (AMB) | payer MEDICARE, SELFPAY ==
[2024-11-30 14:28] VITALS: BP 130/62; PULSE 81; O2SAT 93; BMI 30.6
--- NOTE | 2024-11-30 14:28 | A.OFFPC_ITS ---
Vital Signs 11/30/24 14:28 Height 5 ft 9 in Weight 207 lb BMI 30.6 BP 130/62 Blood Pressure Location Lt brachial Position Sitting Pulse 81 Pulse Source Pulse Oximeter Pulse Oximetry (%) 93 Oxygen Delivery Method Room Air Intake Visit Reasons: CHANTAL DR Vincent Allergies hydrochlorothiazide [HCTZ] Allergy (Mild, Verified 11/30/24 14:29) ADVISED PATIENT NOT TO TAKE AGAIN TABITHA Inhibitors Allergy (Unknown, Verified 11/30/24 14:29) Unknown lisinopril [LISINOPRIL] Allergy (Unknown, Verified 11/30/24 14:29) COUGH Medication List - Last Reconciled 11/30/24 by Aracelis Ford MD amlodipine 10 mg PO DAILY losartan 100 mg PO DAILY simvastatin 20 mg PO BEDTIME Tobacco use date assessed: 08/28/24 Fall risk assessment: No Falls in past year Last assessed Fall Risk: 11/30/24 Dental Screening Dental Screen Date: 08/28/24 [facility] Medical History Hyperlipidemia Hypertension Surgical History 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 Amputation toe History of brain surgery History of appendectomy Family History Father Medical history unknown Mother Heart disease Brother Liver cancer Social History (Updated 11/30/24 @ 15:40 by Aracelis Ford MD) Housing: House Alcohol intake: never Patient Tobacco Use Status: Former Tobacco user Tobacco use type: Cigarette Years Smoked: stopped 1994 e-Cigarette/Vaping Use: Never Used Second Hand Smoke Exposure: No service: No Current occupational status: retired Cognitive needs: No Hearing needs: No Vision needs: Yes (reading glasses) Questionnaire PHQ-9 Over the last 2 weeks, how often have you been bothered by any of the following problems? 1. Little interest or pleasure in doing things: not at all 2. Feeling down, depressed, or hopeless: not at all 3. Trouble falling or staying asleep, or sleeping too much: not at all 4. Feeling tired or having little energy: nearly every day 5. Poor appetite or overeating: not at all 6. Feeling bad about yourself - or that you are a failure or have let yourself or your family down: not at all 7. Trouble concentrating on things, such as reading the newspaper or watching television: not at all 8. Moving or speaking so slowly that other people could have noticed. Or the opposite - being so fidgety or restless that you have been moving around a lot more than usual: not at all 9. Thoughts that you would be better off or of hurting yourself in some way: not at all Total score: 3 Depression Screening Interpretation: Positive Depression Screening Done: Yes Source: Developed by Drs. Luis Garnett, Melony Leon, Elie Iniguez and colleagues, with an educational negrito from [employer]. Thrive Questionnaire Date Thrive assessed: 08/28/24 I am a: Patient What is your living situation today?: I have a steady place to live Within the past 12 months, did the food you bought not last and you didn't have the money to get more?: Never true Within the past 12 months, did you worry whether your food would run out before you got money to buy more?: I choose not to answer this question Do you have trouble paying for medicines?: No Do you have trouble getting transportation to medical appointments?: I choose not to answer this question Do you have trouble paying your heating and electricity bill?: I choose not to answer this question Do you have trouble taking care of your child, family member or friend?: I choose not to answer this question Do you have trouble with day-to-day activities such as bathing, preparing meals, shopping, managing finances, etc.?: I choose not to answer this question Are you currently unemployed and looking for a job?: I choose not to answer this question Are you interested in more education?: I choose not to answer this question Please select the resources that you would like help with: None Currently or been in a relationship where the following occur: I choose not to answer THRIVE Score: 0 AUDIT C Alcohol Use Questionnaire (AUDIT-C) 1. How often do you have a drink containing alcohol?: Never 3. How often do you have six or more drinks on one occasion?: Never Total Score: 0 TAMMIE-7 AMB Questionnaire TAMMIE-7 Date TAMMIE - 7 assessed: 08/28/24 Feeling nervous, anxious, or on edge: 3 = Nearly every day Not being able to stop or control worryin = Not at all Worrying too much about different things: 0 = Not at all Trouble relaxin = Not at all Being so restless that it is hard to sit still: 0 = Not at all Becoming easily annoyed or irritable: 0 = Not at all Feeling afraid as if something awful might happen: 0 = Not at all Total TAMMIE-7 score (0-4 normal; 5-9 mild; 10-14 moderate; 15-21 severe): 3 Source: Developed by Drs. Luis Garnett, Melony Leon, Elie Iniguez and colleagues, with an educational negrito from [employer]. Physical exam (Primary Care) Vital Signs: Last Vital Signs Pulse 81 11/30/24 14:28 BP 130/62 11/30/24 14:28 Pulse Ox 93 11/30/24 14:28 Oxygen Delivery Method Room Air 11/30/24 14:28 BMI result Body Mass Index 30.6 Tobacco/Smoking Status: Tobacco use Status Tobacco use date assessed 08/28/24 11/30/24 14:29 Patient Tobacco Use Status Never used Tobacco 11/30/24 14:29 Tobacco use type Cigarette 11/30/24 14:29 e-Cigarette/Vaping Use Never Used 11/30/24 14:29 PHQ-9: PHQ-9 Score PHQ-9: Total score 3 11/30/24 15:19 Depression Screening Interpretation: Positive Thrive Assessment: Date of Thrive Assessment Date Thrive assessed 08/28/24 11/30/24 14:29 Currently or been in a relationship where the following occur: I choose not to answer Const General: alert; No acute distress Eyes Conjunctivae: conjunctivae normal Resp Auscultation: clear to auscultation bilaterally Cardio Rate: regular rate Rhythm: regular rhythm GI Inspection: Yes normal to inspection Extrem General: Yes normal to inspection and No edema Coding Level of Care Code Est Pt Level 4 (64530) Complex EM visit Add On G2211 Diagnoses Type 2 diabetes mellitus with hyperglycemia E11.65 Hyperlipidemia E78.5 Hypertension I10 Overweight (BMI 25.0-29.9) E66.3 COPD (chronic obstructive pulmonary disease) J44.9 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 Hemoglobin A1c goal of less than 7.0 patient diet controlled (2) Hyperlipidemia: Code(s): E78.5 - Hyperlipidemia, unspecified Category: Medical Plan: Avoid fried foods, chicken skin, eggs, butter margarine, pastries and meat. Be it pork or beef they have a lot of cholesterol LDL goal of less than 100 and triglyceride of less than 150 on simvastatin 20 mg once a day (3) Hypertension: Code(s): I10 - Essential (primary) hypertension Category: Medical Plan: Continue with blood pressure medication. Decrease salt intake and exercise on losartan and amlodipine (4) Overweight (BMI 25.0-29.9): Code(s): E66.3 - Overweight Category: Medical (5) COPD (chronic obstructive pulmonary disease): Comment: no inhaler Code(s): J44.9 - Chronic obstructive pulmonary disease, unspecified Category: Medical (6) Guillain-[place] syndrome: Comment: Dr. 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 His diabetes remains under dietary control, although his hemoglobin A1c at 6.7% suggests room for improvement, with a diet containing sweets noted as a contributing factor. Hypertension is managed with losartan and amlodipine, and his LDL cholesterol level sits at 84 mg/dL under simvastatin therapy. Orthopedically, the patient suffers from chronic foot pain attributed to osteoarthritis and acquired deformities in his left foot, confirmed through past X-rays. 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 Additionally, he has a history of COPD but chooses not to use inhalers due to side effect concerns. 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 Despite a history of smoking, the patient quit in the mid-. Prostatic enlargement remains an issue, with an irregular urinary stream. Health Maintenance - Annual eye examination is advised. - Influenza vaccination is up to date, with COVID-19 vaccines and pneumonia shots received. - Discussed lifestyle modifications including dietary changes to reduce sweet intake to improve diabetes control. - Encouraged physical activity to aid weight management and blood glucose control. - Emphasized necessary follow-up for prostate assessments given the symptoms of urinary frequency. Social History - Former smoker, quit in approximately 1994. - Visited [place], marking a recent weight gain attributed to a period on vacation. - Exhibits limited physical activity due to foot pain and described dietary habits that include frequent sweet consumption, particularly chocolates and cakes. Review of Systems - Cardiovascular: Denies history of heart attack or stroke. - Respiratory: Reports COPD, denies using inhalers due to cancer concerns. - Neurological: Reports foot numbness and weakness in hands; denies strokes or seizures. - Musculoskeletal: Reports chronic osteoarthritic foot pain. - Genitourinary: Reports and enlarged prostate with urinary frequency. - Endocrine: Acknowledged history of diabetes mellitus. Physical Exam General: Cooperative, healthy appearing, comfortable, no acute distress and well developed Orientation: Patient oriented x3 Limitations: No limitations Head: Normal to inspection Ears: Hearing grossly normal bilaterally Nose: Normal external nose present Face and sinus: Normal facial exam Eyes: Appearance normal, both eyes and all related structures Neck: Normal visual inspection and Yes full ROM Respiratory: Normal respiratory effort and able to speak in complete sentences. Clear to auscultation bilaterally Cardiovascular: Regular rate and rhythm. Normal S1 and S2 GI: Normal to inspection. 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 Feet are full of arthritis and patient reports pins and needles sensation, likely due to Guillain-Tamez? syndrome. Results - Labs: Hemoglobin A1c 6.7%, fasting blood glucose 135 mg/dL, LDL cholesterol 84 mg/dL. - Imaging: X-ray shows midfoot deformity and severe osteoarthritis; CT revealed right frontal lobe encephalomalacia with post-surgical changes. Plan Management focuses on maintaining diabetes control, continuing current antihypertensive and hypercholesterolemia medications, exploring the prostate issues with an ultrasound, ordering tests for hand weakness, and engaging occupational therapy. The patient will be educated on the benefits of reducing sweet intake due to its impact on diabetes control. He is encouraged to partake in eye care routinely and consider vaccination against shingles as part of preventive measures. 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 Patient was informed and verbally consented to the use of an ambient scribe for clinic note documentation during this visit. Discussion Notes The conversation centered around diabetes, hypertension, osteoarthritis, and Guillain-Tamez? management, exploring existing medicinal control and health maintenance strategies. The benefits of adjusting diet and increasing physical activity to improve blood glucose levels were discussed. Risks and benefits of current medications like losartan, amlodipine, and simvastatin were reiterated, with an emphasis on how they control hypertension and cholesterol levels, respectively. The patient expressed concerns regarding the side effects of inhalers despite COPD history. Occupational therapy and neurological tests were suggested for hand weakness. The understanding was reached regarding regular check-ups necessary for prostate health. Recommendations for vaccinations including shingles were made with consent obtained for all discussed intervent ions. Patient Instructions - Monitor blood sugar regularly and maintain a dietary strategy to reduce sweets. - Continue current medications unless otherwise advised. - Follow up for an ultrasound on prostate and bladder. - Attend occupational therapy as scheduled to learn hand-strengthening exercises. - Consider getting a shingles vaccine at the pharmacy. - Keep regular appointments with your eye health and social care teacher annually. - Increase physical activity levels gradually to what you can tolerate. - Stay hydrated; favor water over sugar-laden juices. - Follow up in three months for review and further blood work testing. Orders: Orders OT Evaluation and Treatment Today R29.898 - Other symptoms and signs involving the musculoskeletal system NE nerve conduction velocity Today R29.898 - Other symptoms and signs involving the musculoskeletal system US bladder Today N40.0 - Benign prostatic hyperplasia without lower urinary tract symptoms NE electromyogram (EMG) Today R29.898 - Other symptoms and signs involving the musculoskeletal system XR Hand Aamir 2V Today R29.898 - Other symptoms and signs involving the musculoskeletal system
--- OUTSIDE RECORDS SUMMARY | 2024-11-30 15:39 | XMS_ITS | Patient Health Record ---
Author Organization [facility] [place] Address [address] [place] [address] Care Team Providers Care Clay Puddler Name Role Phone Melisa PEDRO, Parish Primary Care Provider Demian Bishop Unavailable [phone] Allergies Allergen (clinical drug ingredient) Drug/Non Drug Allergy documented on EMR Reaction Allergy Type Onset Date Status hydrochlorothiazide Hydrochlorothiazide cough Drug Aller gy Active Lisinopril cough Drug Allergy Active Results Component Value Reference Range Notes HEMOGLOBIN A1C (GLYCOHEMOGLO BIN) Reviewed date:03/26/2024 01:58:29 PM Interpretation: Performing Lab: Notes/Report: TOTAL HEMOGLOBIN (HGBA1C) 6.9 Reason For Referral No Information Medications Medication SIG (Take, Route, Frequency, Duration) Notes Start Date End Date Status Ibuprofen 800 MG 1 tablet with food or milk as needed Orally Three times a day for 30 days 06/17/2019 Not-Taking Gabapentin 300 MG 1 capsule Orally Once a day hs for 10 days 06/17/2019 Not-Taking Augmentin 500-125 MG 1 tablet Orally every 8 hrs; start on 07/01/2019 for 30 days 06/17/2019 Not-Taking Amoxicillin Not-Taki ng Clotrimazole-Betamethasone 1-0.05 % 1 application to affected area Externally Twice a day to affected areas on feet for 30 days 02/26/2019 Not-Taking Prednisone 1 tab Oral Not-Taki ng Keflex 500 MG 1 capsule Orally every 12 hrs for 10 day(s) 10/10/2017 Not-Taking Bactrim DS 800-160 MG 1 tablet Orally every 12 hrs for 10 day(s) 10/25/2017 Not-Taking Augmentin 500-125 MG 1 tablet Orally every 8 hrs for 10 days 01/07/2019 Not-Taking Prednisone 7.5 mg No t-Taking Multi-Vitamin Active Simvastatin 20 MG 1 tablet in the evening Orally Once a day Active amLODIPine Besylate 10 MG 1 tablet Orall y Once a day Active Potassimin Not-Takin g Losartan Potassium 100 MG 1 tablet Orall y Once a day Active Doxycycline Hyclate Not-Taking Lisinopril Not-Takin g hydroCHLOROthiazide 25 MG 1 tablet Orall y Once a day Not-Taking Tamsulosin HCl 0.4 MG 1 capsule Orally Once a day Not-Taking Custom Molded Shoes as directed Dx: 03/26/2024 Active Bactrim DS 800-160 MG 1 tablet Orally Twice a day for 10 day(s) 10 days Not-Taking Custom Orthotics as directed 03/26/2024 Active Silvadene 1 % 1 application to affected area Externally Once a day for 30 days Not-Taking Augmentin 500-125 MG 1 tablet Orally every 8 hrs for 30 days Not-Taking Vitamin E 180 MG (400 UNIT) as directed Orally Active Vitamin D3 50 MCG (2000 UT) as directed Orally Active Immunizations Vaccine Route Administration Date Status Comme nts COVID-19 Pfizer BioNTech Vaccine Unknown 05/01/2022 Administered 1st 07/30/2020,08/20/20 05/02/21 Influenza Unknown 11/08/2017 Refused Influenza Unknown 09/10/2018 Refused Influenza Unknown 04/25/2020 Refused Influenza Unknown 05/01/2022 Administered Influenza Unknown 03/01/2023 Administered Social History Tobacco Use: Social History Observation [...] Problem Status W/U Status Risk Notes Problem Pain in left foot (470828794310179) Pain in left foot (M79.672) Active confirmed Problem 16417536 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 Problem Chronic ulcer of foot (310103628) Non-pressure chronic ulcer of other part of left foot with fat layer exposed (L97.522) Active confirmed Problem Localized, primary osteoarthritis of the ankle and/or foot (234645853) Primary osteoarthritis, right ankle and foot (M19.071) Active confirmed Problem Localized, primary osteoarthritis of the ankle and/or foot (533203563) Primary osteoarthritis, left ankle and foot (M19.072) Active confirmed Problem Acquired hallux valgus (88777586) Hallux valgus (acquired), right foot (M20.11) Active confirmed Problem Non-pressure chronic ulcer of other part of left foot limited to breakdown of skin (L97.521) Active confirmed Problem Acquired hammer toe of right foot (2096201008715226) Other hammer toe(s) (acquired), right foot (M20.41) Active confirmed Problem Primary gout (60502390) Idiopathic gout, 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) Active confirmed Problem 978065977 Hammer toe of right foot (M20.41) Active confirmed Problem 512774161 Hammer toe of left foot (M20.42) Active confirmed Problem 48930163 Type 2 diabetes mellitus with polyneuropathy (E11.42) Active confirmed Problem 78679275705481692 Non-pressure chronic ulcer left lower leg, limited to breakdown skin (L97.921) Active confirmed Problem 50718743471447450 Subacute osteomyelitis of right foot (M86.271) Active confirmed Problem 73056490 Ulcer of right lower extremity with bone involvement without evidence of necrosis (L97.916) Active confirmed Problem 392720155 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) Active confirmed Vital Signs Height 5 ft 9 in in 03/26/2024 Weight 205 lbs 03/26/2024 BMI 30.27 kg/m2 03/26/2024 Encounters Encounter Location Date Provider Diagnosis [facility] [address] [place] [address] 03/26/2024 Demian Christianson Tinea unguium B35.1 ; Ingrowing nail L60.0 ; Pain in right toe(s) M79.674 ; Type 2 diabetes mellitus with polyneuropathy E11.42 ; Pain in left toe(s) M79.675 ; 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 ; Hallux valgus (acquired), right [...] in left toe(s) (ICD-10 - M79.675) 03/26/2024 Guillain-Galt syndrome (ICD-10 - G61.0) 03/26/2024 Hallux valgus (acquired), right foot (ICD-10 - M20.11) 03/26/2024 Other hammer toe(s) (acquired), right foot (ICD-10 - M20.41) 03/26/2024 Charcot's arthropathy (ICD-10 - M14.60) Plan Of Treatment Pending Test Test Name Order Date *Wound Culture 08/07/2021 *Wound Culture 08/14/2021 X ray : Foot, left 3V 01/07/2019 X ray : Foot, left 3V 06/17/2019 X ray : Foot, left 3V 07/06/2019 X ray : Foot, left 3V 07/27/2019 X ray : Foot, left 3V 12/26/2017 X ray : Foot, right 3V 11/18/2019 X ray : Foot, right 3V 09/11/2021 39519-YEKOHUB NAIL, 6 OR MORE 12/05/2017 96187-REUWDNO NAIL, 6 OR MORE 06/10/2018 17462-MAQUXVY NAIL, 6 OR MORE 03/06/2018 25553-DUWGIWS NAIL, 6 OR MORE 09/04/2017 04591-LYFIITB NAIL, 6 OR MORE 06/14/2016 38044-ONPZTZE NAIL, 6 OR MORE 09/05/2016 23220-IGRVEWX NAIL, 6 OR MORE 11/29/2016 91711-FLRUHVR NAIL, 6 OR MORE 03/06/2017 73983-AEMVNAZ NAIL, 6 OR MORE 06/05/2017 84079-Zxhdprox Plate 07/07/2014 41893-Guojdpwo Plate 12/06/2014 63815-Jzzszxsn Plate 02/28/2015 96274-Pcoekipq Plate 05/30/2015 56330-Uypxqqlt Plate 08/31/2015 91387-Vmisjeij Plate 11/30/2015 71802-Mmochgee Plate 03/28/2016 47738-Ngmlfjbp Plate 06/14/2016 09095-Tlmvrone Plate Each Additional 04368- Debride <25 sq cm 02/28/2015 12441- Debride <25 sq cm 08/30/2014 15190- Debride <25 sq cm 12/06/2014 47703- Debride <25 sq cm 11/08/2017 62067- Debride <25 sq cm 11/22/2017 31914- Debride <25 sq cm 12/05/2017 90886- Debride <25 sq cm 12/26/2017 92647- Debride <25 sq cm 01/22/2018 12836-SBLISPP SKIN/TISSUE 10/25/2017 57042-JTQHZCV SKIN/TISSUE 11/11/2019 91996-QLDXODD SKIN/TISSUE 08/17/2021 08022-MLGIPRJ SKIN/TISSUE 09/11/2021 53281-MYBEPTL SKIN/TISSUE 09/21/2022 15469-AKKILIX SKIN/TISSUE 08/07/2021 41829-DENOBCM SKIN/TISSUE 08/10/2021 37052- I&D ABSCESS-COMPLICATED,MULTI 03/2019 98643- I&D ABSCESS-COMPLICATED,MULTI 05/2018 06798-IMVS SKIN LESIONS, OVER 4 12/06/19 18 18166-LOOA SKIN LESIONS, OVER 4 06/10/20 18 64165-TUBA SKIN LESIONS, OVER 4 03/06/20 18 63215-IAJN SKIN LESIONS, OVER 4 09/05/19 18 32684-INWM SKIN LESIONS, OVER 4 06/05/20 17 84804-VEQW SKIN LESIONS, OVER 4 03/06/20 17 03995-BIRY SKIN LESIONS, OVER 4 02/27/20 19 49516-ZKOJ SKIN LESIONS, OVER 4 05/04/20 19 88016-FYVM SKIN LESIONS, OVER 4 12/04/19 19 21374-RGXI SKIN LESIONS, OVER 4 07/29/19 20 35018-YFTB SKIN LESIONS, OVER 4 10/29/19 20 51135-MPFG SKIN LESIONS, OVER 4 01/12/20 22 44051-XHHZ SKIN LESIONS, 2 TO 4 08/10/19 22 43849-PYXJ SKIN LESIONS, 2 TO 4 07/27/19 21 60886-JPPH SKIN LESIONS, 2 TO 4 10/27/19 21 34941-MNWE SKIN LESIONS, 2 TO 4 01/26/20 21 20713-DKGB SKIN LESIONS, 2 TO 4 05/03/20 21 25092-DYGK SKIN LESIONS, 2 TO 4 01/25/20 20 52109-NQLG SKIN LESIONS, 2 TO 4 04/25/20 20 93394-AYPSMQXX OF HEMATOMA/FLUID 020 31203-SKFKVQHI OF HEMATOMA/FLUID 019 03978-JNREMDOY OF HEMATOMA/FLUID 018 38451-YJRISWBG OF HEMATOMA/FLUID 018 Insurance Providers Payer Name Payer Address Payer Phone Subscriber Number Group Number Insured Name Patient Relationship to Insured Coverage Start Date Coverage End Date [employer] [address] [place] [address] [id number] Lucas Camilo Self - patient is the insured Medical (General) History Medical History History ICD Code Hiatal hernia High blood pressure Nerve disorder Neuropathy Prostate conditions Guillain Galt Syndrome type II diabetes Surgical History Surgery Date(Month/Year) appendectomy eye surgery - right eye 12/2017 HT L2nd, Skin disorder L 07/02/19 xrays RT foot ap/lat/lo 11/18/19 Hospitalization History Reason Date(Month/Year) pt went to [facility] for a thang baree.
== END 2024-11-30 16:06 | disposition home or self-care (01) ==
LOC: HO.HMCH 14:25
PROVIDERS: PCP Internal Medicine; Visit Provider Internal Medicine
DX: E11.65 Type 2 diabetes mellitus with hyperglycemia (principal); J44.9 Chronic obstructive pulmonary disease, unspecified; I10 Essential (primary) hypertension; E78.5 Hyperlipidemia, unspecified; E66.3 Overweight; G61.0 Guillain-Barre syndrome; R29.898 Other symptoms and signs involving the musculoskeletal system; N40.0 Benign prostatic hyperplasia without lower urinary tract symptoms

== ENCOUNTER → 2024-11-30 14:24 | Outpatient (BNVA) | payer MEDICARE, SELFPAY | PROVIDERS: PCP Internal Medicine; Visit Provider Internal Medicine | DX: E11.65 Type 2 diabetes mellitus with hyperglycemia (principal); E78.5 Hyperlipidemia, unspecified; I10 Essential (primary) hypertension; E66.3 Overweight; J44.9 Chronic obstructive pulmonary disease, unspecified; G61.0 Guillain-Barre syndrome; R29.898 Other symptoms and signs involving the musculoskeletal system; N40.0 Benign prostatic hyperplasia without lower urinary tract symptoms; Z68.30 Body mass index [BMI] 30.0-30.9, adult | CPT/HCPCS: 96127; 99212 ==

== ENCOUNTER 2024-12-02 12:48 | Outpatient (REF) | payer MEDICARE, SELFPAY ==
--- NOTE | ~2024-12-02 | XR_ITS ---
Examination: Three-view bilateral hands. 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 These include: Base of the second middle phalanx, central third middle phalanx, distal tip of the distal phalanx of the fourth digit. Small semicircular metallic foreign body is embedded in the head of the first proximal phalanx. 2 punctate calcific densities project in the soft tissues along the volar ulnar aspect of the base of the distal phalanx of the thumb. The distal end of a metallic plate projects over the distal radius. There is borderline widening of the scapholunate interval. RIGHT HAND: Joint spaces are preserved. There is marginal lucency along the radial aspect at the base of the third proximal phalanx with sclerotic margin. Nonspecific short fine linear density is evident in the soft tissues on the oblique view volar to the base of the first metacarpal. XR/XR Hand Aamir 2V Impression: Left hand: Chronic amputations, as detailed above. There is borderline widening of the scapholunate interval raising question of scapholunate ligament injury. Right hand: Chronic marginal erosion is present along the radial aspect at the base of the third proximal phalanx. This could be from a remote infection or inflammatory arthropathy in remission Electronically signed by: Willie Gatica MD 12/02/2024 06:29 PM EDT
--- OUTSIDE RECORDS SUMMARY | 2024-12-02 13:13 | XMS_ITS | Patient Health Record ---
Author Organization [facility]ika rj Juan Address [address] [facility] [place] [address] Care Team Providers Care Electronic Science Teacher Name Role Phone Melisa PEDRO, Parish Primary Care Provider Demian Bishop Unavailable [phone] Allergies Allergen (clinical drug ingredient) Drug/Non Drug Allergy documented on EMR Reaction Allergy Type Onset Date Status hydrochlorothiazide Hydrochlorothiazide cough Drug Aller gy Active lisinopril Lisinopril cough Drug Allergy Activ e Results Component Value Reference Range Notes HEMOGLOBIN [...] Risk Notes Problem Pain in left foot (901512143117021) Pain in left foot (M79.672) Active confirmed Problem 98562045 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 Problem Chronic ulcer of foot (692095391) Non-pressure chronic ulcer of other part of left foot with fat layer exposed (L97.522) Active confirmed Problem Localized, primary osteoarthritis of the ankle and/or foot (183108202) Primary osteoarthritis, right ankle and foot (M19.071) Active confirmed Problem Localized, primary osteoarthritis of the ankle and/or foot (766134857) Primary osteoarthritis, left ankle and foot (M19.072) Active confirmed Problem Acquired hallux valgus (59669643) Hallux valgus (acquired), right foot (M20.11) Active confirmed Problem Non-pressure chronic ulcer of other part of left foot limited to breakdown of skin (L97.521) Active confirmed Problem Acquired hammer toe of right foot (5775501317626202) Other hammer toe(s) (acquired), right foot (M20.41) Active confirmed Problem Primary gout (03283738) Idiopathic gout, 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) Active confirmed Problem 505076120 Hammer toe of right foot (M20.41) Active confirmed Problem 777512514 Hammer toe of left foot (M20.42) Active confirmed Problem 11782584 Type 2 diabetes mellitus with polyneuropathy (E11.42) Active confirmed Problem 38064954703980134 Non-pressure chronic ulcer left lower leg, limited to breakdown skin (L97.921) Active confirmed Problem 26927525499220050 Subacute osteomyelitis of right foot (M86.271) Active confirmed Problem 14895076 Ulcer of right lower extremity with bone involvement without evidence of necrosis (L97.916) Active confirmed Problem 592149844 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) Active confirmed Vital Signs Height 5 ft 9 in in 03/26/2024 Weight 205 lbs 03/26/2024 BMI 30.27 kg/m2 03/26/2024 Encounters Encounter Location Date Provider Diagnosis [facility] [place] [address] [place] [address] 03/26/2024 Demian Christianson Tinea unguium B35.1 ; Ingrowing nail L60.0 ; Pain in right toe(s) M79.674 ; Type 2 diabetes mellitus with polyneuropathy E11.42 ; Pain in left toe(s) M79.675 ; Guillain-[place] syndrome G61.0 ; Hallux valgus (acquired), right [...] in left toe(s) (ICD-10 - M79.675) 03/26/2024 Guillain-R[place] syndrome (ICD-10 - G61.0) 03/26/2024 Hallux valgus [...] X ray : Foot, right 3V 09/11/2021 50838-MBDUBAO NAIL, 6 OR MORE 12/05/2017 45309-HWZVSKS NAIL, 6 OR MORE 06/10/2018 42243-BKKJHCI NAIL, 6 OR MORE 03/06/2018 46650-UDQBILL NAIL, 6 OR MORE 09/04/2017 65597-CCFLLVK NAIL, 6 OR MORE 06/14/2016 80025-NUWBVDY NAIL, 6 OR MORE 09/05/2016 62613-FSKBYUH NAIL, 6 OR MORE 11/29/2016 09072-LXBALYB NAIL, 6 OR MORE 03/06/2017 68554-QUVSHEB NAIL, 6 OR MORE 06/05/2017 61582-Htemvqay Plate 07/07/2014 98752-Ikuhaopn Plate 12/06/2014 19159-Nhtvpnix Plate 02/28/2015 66517-Wamjofqu Plate 05/30/2015 10763-Junbgdat Plate 08/31/2015 16354-Vpggdyvd Plate 11/30/2015 19687-Lavgeiqb Plate 03/28/2016 74790-Vxgljkos Plate 06/14/2016 53458-Danpocqe Plate Each Additional 10145- Debride <25 sq cm 02/28/2015 29016- Debride <25 sq cm 08/30/2014 61328- Debride <25 sq cm 12/06/2014 92399- Debride <25 sq cm 11/08/2017 25913- Debride <25 sq cm 11/22/2017 06432- Debride <25 sq cm 12/05/2017 66209- Debride <25 sq cm 12/26/2017 00514- Debride <25 sq cm 01/22/2018 71569-FWZDOIC SKIN/TISSUE 10/25/2017 27755-BTAJKLX SKIN/TISSUE 11/11/2019 64056-HNFVYBR SKIN/TISSUE 08/17/2021 44302-TJHXYCD SKIN/TISSUE 09/11/2021 04027-WWSRLXG SKIN/TISSUE 09/21/2022 52723-KHJBBKU SKIN/TISSUE 08/07/2021 88706-ITHUGNS SKIN/TISSUE 08/10/2021 83888- I&D ABSCESS-COMPLICATED,MULTI 03/2019 07697- I&D ABSCESS-COMPLICATED,MULTI 05/2018 71567-NSUC SKIN LESIONS, OVER 4 12/06/19 18 01994-DOVL SKIN LESIONS, OVER 4 06/10/20 18 32015-BAVI SKIN LESIONS, OVER 4 03/06/20 18 42297-XTKV SKIN LESIONS, OVER 4 09/05/19 18 42804-HVME SKIN LESIONS, OVER 4 06/05/20 17 42835-IMFC SKIN LESIONS, OVER 4 03/06/20 17 13890-JDGL SKIN LESIONS, OVER 4 02/27/20 19 93126-ZRMD SKIN LESIONS, OVER 4 05/04/20 19 47574-NKJB SKIN LESIONS, OVER 4 12/04/19 19 63373-KAGW SKIN LESIONS, OVER 4 07/29/19 20 41705-SJGH SKIN LESIONS, OVER 4 10/29/19 20 65539-PDJP SKIN LESIONS, OVER 4 01/12/20 22 44828-NCBV SKIN LESIONS, 2 TO 4 08/10/19 22 97092-IUTR SKIN LESIONS, 2 TO 4 07/27/19 21 88307-KJPB SKIN LESIONS, 2 TO 4 10/27/19 21 82293-QBZX SKIN LESIONS, 2 TO 4 01/26/20 21 56165-JBZJ SKIN LESIONS, 2 TO 4 05/03/20 21 84374-HGMJ SKIN LESIONS, 2 TO 4 01/25/20 20 60066-XWVB SKIN LESIONS, 2 TO 4 04/25/20 20 49800-IWXVXIPN OF HEMATOMA/FLUID 020 75969-CAOSZHHL OF HEMATOMA/FLUID 019 22431-INMGTUWX OF HEMATOMA/FLUID 018 82454-RPUEWISA OF HEMATOMA/FLUID 018 Insurance Providers Payer Name Payer Address Payer Phone Subscriber Number Group Number Insured Name Patient Relationship to Insured Coverage Start Date Coverage End Date [employer] [place] [employer] Advantage [address] [place] [address] [id number] Lucas Camilo Self - patient is the insured Medical (General) History Medical History History ICD Code Hiatal hernia High blood pressure Nerve disorder Neuropathy Prostate conditions Guillain [place] Syndrome type II diabetes Surgical History Surgery Date(Month/Year) appendectomy eye surgery - right eye 12/2017 HT L2nd, Skin disorder L 07/02/19 xrays RT foot ap/lat/lo 11/18/19 Hospitalization History Reason Date(Month/Year) pt went to [facility] for a thang baree.
== END 2024-12-02 12:49 | disposition home or self-care (01) ==
LOC: HO.XRAY 12:48
PROVIDERS: PCP Internal Medicine; Visit Provider Internal Medicine
DX: R29.898 Other symptoms and signs involving the musculoskeletal system (principal)
CPT/HCPCS: 73120

== ENCOUNTER → 2024-12-02 12:53 | Outpatient (BNV) | payer MEDICARE, SELFPAY | PROVIDERS: PCP Internal Medicine; Visit Provider Radiology Diagnostic Radiology | DX: R29.898 Other symptoms and signs involving the musculoskeletal system (principal) | CPT/HCPCS: 73120 ==

== ENCOUNTER 2024-12-03 13:35 | Outpatient (REF) | payer MEDICARE, SELFPAY ==
--- NOTE | ~2024-12-03 | US_ITS ---
EXAMINATION: US BLADDER HISTORY: N40.0 - Benign prostatic hyperplasia without lower urinary tract symptoms COMPARISON: There are no prior studies available for comparison. FINDINGS: Sonographic examination of the urinary bladder was performed before and after voiding. Before voiding, the urinary bladder measured 10.0 x 12.9 x 4.8, for an estimated volume of 322 mL. After voiding, the urinary bladder measured 4.9 x 9.5 x 1.2, for an estimated volume of 43 mL. No intrinsic bladder abnormality is identified. The prostate measures 7.4 x 5.4 x 4.5 cm, for an estimated volume of 94 mL. US/US bladder IMPRESSION: 1. Unremarkable ultrasound of the urinary bladder. 2. Post void bladder residual of 43 mL. Prostate volume of 94 mL. Electronically signed by: Luis Bassett MD 12/03/2024 02:24 PM EDT
--- OUTSIDE RECORDS SUMMARY | 2024-12-03 16:07 | XMS_ITS | Patient Health Record ---
Author Organization [facility]humika rj Juan Address [address] [facility] [place] [address] Care Team Providers Care Aoc Operations Intelligence Chief Name Role Phone Melisa PEDRO, [place] Primary Care Provider Demian Bishop Unavailable [phone] Allergies Allergen (clinical drug ingredient) Drug/Non Drug [...] Risk Notes Problem Pain in left foot (983266177506602) Pain in left foot (M79.672) Active confirmed Problem 48804702 Guillain-Mid[place] syndrome (G61.0) Active confirmed Problem Chronic ulcer of foot (534694419) Non-pressure chronic ulcer of other part of left foot with fat layer exposed (L97.522) Active confirmed Problem Localized, primary osteoarthritis of the ankle and/or foot (266610055) Primary osteoarthritis, right ankle and foot (M19.071) Active confirmed Problem Localized, primary osteoarthritis of the ankle and/or foot (287464581) Primary osteoarthritis, left ankle and foot (M19.072) Active confirmed Problem Acquired hallux valgus (36867560) Hallux valgus (acquired), right foot (M20.11) Active confirmed Problem Non-pressure chronic ulcer of other part of left foot limited to breakdown of skin (L97.521) Active confirmed Problem Acquired hammer toe of right foot (6576018697870372) Other hammer toe(s) (acquired), right foot (M20.41) Active confirmed Problem Primary gout (75191055) Idiopathic gout, 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) Active confirmed Problem 241663876 Hammer toe of right foot (M20.41) Active confirmed Problem 678889612 Hammer toe of left foot (M20.42) Active confirmed Problem 80862832 Type 2 diabetes mellitus with polyneuropathy (E11.42) Active confirmed Problem 71279606800329220 Non-pressure chronic ulcer left lower leg, limited to breakdown skin (L97.921) Active confirmed Problem 27232391903034132 Subacute osteomyelitis of right foot (M86.271) Active confirmed Problem 25710319 Ulcer of right lower extremity with bone involvement without evidence of necrosis (L97.916) Active confirmed Problem 182355689 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) Active confirmed Vital Signs Height 5 ft 9 in in 03/26/2024 Weight 205 lbs 03/26/2024 BMI 30.27 kg/m2 03/26/2024 Encounters Encounter Location Date Provider Diagnosis [facility] [place] [address] [place] [address] 03/26/2024 Demian Christianson Tinea unguium B35.1 ; Ingrowing nail L60.0 ; Pain in right toe(s) M79.674 ; Type 2 diabetes mellitus with polyneuropathy E11.42 ; Pain in left toe(s) M79.675 ; Guillain-Midland syndrome G61.0 ; Hallux valgus (acquired), right [...] in left toe(s) (ICD-10 - M79.675) 03/26/2024 Guillain-Midland syndrome (ICD-10 - G61.0) 03/26/2024 Hallux valgus [...] X ray : Foot, right 3V 09/11/2021 66105-NXSLGNG NAIL, 6 OR MORE 12/05/2017 33242-CBYJAFP NAIL, 6 OR MORE 06/10/2018 54558-GLZHUGF NAIL, 6 OR MORE 03/06/2018 61522-BDZZWKC NAIL, 6 OR MORE 09/04/2017 76235-DIHRSDQ NAIL, 6 OR MORE 06/14/2016 44726-MHXCVAV NAIL, 6 OR MORE 09/05/2016 92798-OCSYSIC NAIL, 6 OR MORE 11/29/2016 17386-VMXMYMK NAIL, 6 OR MORE 03/06/2017 93309-IMICODR NAIL, 6 OR MORE 06/05/2017 11742-Ycxcowuf Plate 07/07/2014 45539-Ampbjkea Plate 12/06/2014 60203-Nghsteml Plate 02/28/2015 53363-Fqpyhwrh Plate 05/30/2015 45465-Wtbtsndn Plate 08/31/2015 92398-Kraadczb Plate 11/30/2015 82441-Moxhrlgh Plate 03/28/2016 32882-Nzvszxth Plate 06/14/2016 76870-Xxdworyg Plate Each Additional 69467- Debride <25 sq cm 02/28/2015 83074- Debride <25 sq cm 08/30/2014 21651- Debride <25 sq cm 12/06/2014 58196- Debride <25 sq cm 11/08/2017 35979- Debride <25 sq cm 11/22/2017 71493- Debride <25 sq cm 12/05/2017 59546- Debride <25 sq cm 12/26/2017 98714- Debride <25 sq cm 01/22/2018 82543-ZKPPDTU SKIN/TISSUE 10/25/2017 53195-QOISOCM SKIN/TISSUE 11/11/2019 51177-VXZUCVV SKIN/TISSUE 08/17/2021 50347-RQCOYVX SKIN/TISSUE 09/11/2021 71057-UUOUPPM SKIN/TISSUE 09/21/2022 85264-JKSJIYZ SKIN/TISSUE 08/07/2021 08834-XXIRULX SKIN/TISSUE 08/10/2021 76485- I&D ABSCESS-COMPLICATED,MULTI 03/2019 11714- I&D ABSCESS-COMPLICATED,MULTI 05/2018 37728-BJDS SKIN LESIONS, OVER 4 12/06/19 18 39909-VHAI SKIN LESIONS, OVER 4 06/10/20 18 38498-CYBC SKIN LESIONS, OVER 4 03/06/20 18 34152-ZRBT SKIN LESIONS, OVER 4 09/05/19 18 21027-RCKR SKIN LESIONS, OVER 4 06/05/20 17 92760-CDIW SKIN LESIONS, OVER 4 03/06/20 17 51314-NZCK SKIN LESIONS, OVER 4 02/27/20 19 57837-YWWK SKIN LESIONS, OVER 4 05/04/20 19 05149-WBDZ SKIN LESIONS, OVER 4 12/04/19 19 77947-DNRT SKIN LESIONS, OVER 4 07/29/19 20 25206-SVOR SKIN LESIONS, OVER 4 10/29/19 20 88776-GUIA SKIN LESIONS, OVER 4 01/12/20 22 48876-VZTO SKIN LESIONS, 2 TO 4 08/10/19 22 62996-XULY SKIN LESIONS, 2 TO 4 07/27/19 21 95768-YRYN SKIN LESIONS, 2 TO 4 10/27/19 21 21962-XLSI SKIN LESIONS, 2 TO 4 01/26/20 21 70445-MZDN SKIN LESIONS, 2 TO 4 05/03/20 21 61822-GXLY SKIN LESIONS, 2 TO 4 01/25/20 20 70716-VPKV SKIN LESIONS, 2 TO 4 04/25/20 20 25666-IZBWWUQT OF HEMATOMA/FLUID 020 38019-OLOOLWEM OF HEMATOMA/FLUID 019 96517-POLDUIIF OF HEMATOMA/FLUID 018 78476-UTWQYBPH OF HEMATOMA/FLUID 018 Insurance Providers Payer Name Payer Address Payer Phone Subscriber Number Group Number Insured Name Patient Relationship to Insured Coverage Start Date Coverage End Date [employer] [place] Medicare Advantage [address] [place] [address] [id number] Lucas Camilo Self - patient is the insured Medical (General) History Medical History History ICD Code Hiatal hernia High blood pressure Nerve disorder Neuropathy Prostate conditions Guillain [place] Syndrome type II diabetes Surgical History Surgery Date(Month/Year) appendectomy eye surgery - right eye 12/2017 HT L2nd, Skin disorder L 07/02/19 xrays RT foot ap/lat/lo 11/18/19 Hospitalization History Reason Date(Month/Year) pt went to [facility] for a thang baree.
== END 2024-12-03 13:36 | disposition home or self-care (01) ==
LOC: HO.HMGCX 13:35
PROVIDERS: PCP Internal Medicine; Visit Provider Internal Medicine
DX: N40.0 Benign prostatic hyperplasia without lower urinary tract symptoms (principal)
CPT/HCPCS: 76857

== ENCOUNTER → 2024-12-03 13:36 | Outpatient (BNV) | payer MEDICARE, SELFPAY | PROVIDERS: PCP Internal Medicine; Visit Provider Radiology Diagnostic Radiology | DX: N40.0 Benign prostatic hyperplasia without lower urinary tract symptoms (principal) | CPT/HCPCS: 76857 ==

== ENCOUNTER 2024-12-04 09:07 | Outpatient (RCR) | payer MEDICARE, SELFPAY ==
--- NOTE | 2024-12-04 09:51 | MHC.OT.EP ---
[address] [phone] Occupational Therapy Plan of Care Patient Name: Lucas Camilo Date of Evaluation: 12/04/24 Diagnosis: B/L Hand Weakness Pain Location: Denies pain Pain Score: 0 Pain Scale Used: Assessment: 84 yo male presents w/ 5-6 month hx of B/L hand weakness and difficulty using hands. He denies pain and neuropathy, but has difficulty manipulating small objects. 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 We have educated on ROM to maintain movement, nerve and tendon glides, and shelf filler and pinch strenggthening. He has nerve conduction scheudoled next week and will trial home program until that time, with further OT possibly after results to determine. needs. Treatment Plan: Pt to continue w/ home program and hold OT until follow-up and nerve conduction, treatment planned TBD Electronically Signed By: Niki Grimm OTR/L CHT Please Sign and return to therapist. Thank you once again for your referral.
== END 2025-02-09 09:53 | disposition home or self-care (01) ==
LOC: HO.OT 09:07
PROVIDERS: PCP Internal Medicine; Visit Provider Internal Medicine
DX: R29.898 Other symptoms and signs involving the musculoskeletal system (principal)
CPT/HCPCS: 97110; 97165

== ENCOUNTER 2024-12-07 12:15 | Outpatient (REF) | payer MEDICARE, SELFPAY ==
--- NOTE | ~2024-12-07 | XR_ITS ---
EXAMINATION: XR SHOULDER, RIGHT CLINICAL INFORMATION: S46.911A - Strain of unspecified muscle, fascia and tendon at shoulder a... COMPARISON: None available. TECHNIQUE: AP external rotation, Grashey, scapular Y, and axillary views of the right shoulder. FINDINGS: There is mild loss of glenohumeral and moderate loss of AC joint space with periarticular spurring of the AC joint. No loose bodies soft calcification or soft tissue swelling seen. No acute fracture or dislocation. XR/XR shoulder RT min 2V IMPRESSION: Moderate degenerative arthritic changes AC joint. Mild degenerative arthritic changes glenohumeral joint. Electronically signed by: Meir Dudley MD 12/07/2024 02:15 PM EDT
== END 2024-12-07 12:16 | disposition home or self-care (01) ==
LOC: HO.HMGCX 12:15
PROVIDERS: PCP Internal Medicine; Visit Provider Physician Assistant Medical
DX: S46.911A Strain of unspecified muscle, fascia and tendon at shoulder and upper arm level, right arm, initial encounter (principal)
CPT/HCPCS: 73030

== ENCOUNTER 2024-12-07 12:15 | Outpatient (AMB) | payer MEDICARE, SELFPAY ==
--- NOTE | 2024-12-07 13:09 | AM.OFFWIN_ITS ---
Intake Vital Signs 12/07/24 13:11 Height 5 ft 9 in Weight 206 lb BMI 30.4 BP 116/76 Blood Pressure Location Lt brachial Position Sitting Pulse 78 Pulse Source Pulse Oximeter Temp 98.3 F Temp Source Oral Pulse Oximetry (%) 97 Oxygen Delivery Method Room Air Intake Visit Reasons: EP RT Shoulder pain Intake Note: Pt had a fall in garage last night, has right shoulder pain since. Patient Tobacco Use Status: Former Tobacco user Allergies hydrochlorothiazide [HCTZ] Allergy (Mild, Verified 12/07/24 13:11) MD ADVISED PATIENT NOT TO TAKE AGAIN TABITHA Inhibitors Allergy (Unknown, Verified 12/07/24 13:11) Unknown lisinopril [LISINOPRIL] Allergy (Unknown, Verified 12/07/24 13:11) COUGH Do you need a note to return to daycare/school/sports/work: No HPI HPI Comments History of Present Illness Details History of Present Illness - The patient is an 84-year-old male pre senting with right shoulder pain following a fall. - The second fall resulted in suspected rotator cuff injury on the right side, marked by significant limitations in arm movement. - The patient did not lose consciousness and sustained a minor head abrasion with no further head injury. - Post-fall activities were limited by i mpaired arm function and altered sensation. - He denies LOC. He denies neck pain, ROMERO , back pain, arm pain, numbness, or tingling. Physical Exam General: Cooperative, healthy appearing, comfortable, no acute distress and well developed Neck: Normal visual inspection and Yes full ROM Respiratory: Normal respiratory effort and able to speak in complete sentences. Clear to auscultation bilaterally Cardiovascular: Regular rate and rhythm. Normal S1 and S2 Skin: Abrasion noted on the left lateral druze. Neuro: Patient oriented x3 Extremities: Normal to inspection on the right. Decrease ROM of the right shoulder due to pain. Supination and pronation is intact. TTP of the right clavicle, AC joint. No TTP of the bicep. FROM of the right elbow and wrist. Hand coremaker floor is intact. Unable to perform special tests due to pain. Patient was informed and verbally consented to the use of an ambient scribe for clinic note documentation during this visit. 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 Amputation toe History of brain surgery History of appendectomy Family History Father Medical history unknown Mother Heart disease Brother Liver cancer Social History (Updated 11/30/24 @ 15:40 by Aracelis Ford MD) Housing: House Alcohol intake: never Patient Tobacco Use Status: Former Tobacco user Tobacco use type: Cigarette Years Smoked: stopped 1994 e-Cigarette/Vaping Use: Never Used Second Hand Smoke Exposure: No service: No Current occupational status: retired Cognitive needs: No Hearing needs: No Vision needs: Yes (reading glasses) Review of Systems Const All systems reviewed & are unremarkable except as noted in HPI and below Physical Exam Vital Signs: Last Vital Signs Temp 98.3 F 12/07/24 13:11 Pulse 78 12/07/24 13:11 BP 116/76 12/07/24 13:11 Pulse Ox 97 12/07/24 13:11 Oxygen Delivery Method Room Air 12/07/24 13:11 BMI result Body Mass Index 30.4 Assessment & Plan Assessment & Plan (1) Right shoulder strain: Code(s): S46.911A - Strain of unspecified muscle, fascia and tendon at shoulder and upper arm level, right arm, initial encounter Qualifiers: Encounter type: initial encounter Qualified Code(s): S46.911A - Strain of unspecified muscle, fascia and tendon at shoulder and upper arm level, right arm, initial encounter Plan Most likely strain vs fracture vs dislocation vs rotator cuff tear Plan - Order X-ray to assess the right shoulder for potential fractures. - Refer to wellness specialist for evaluation of the shoulder post-X-ray. - Provide a sling for the right arm to restrict movement and manage symptoms. - Tylenol as needed for pain. - Rest, ice, and elevation to the right shoulder. - Follow up with PCP. Orders: Orders XR shoulder RT min 2V Today S46.911A - Strain of unspecified muscle, fascia and tendon at shoulder and upper arm level, right arm, initial encounter Referrals Orthopedics Referral S46.911A - Strain of unspecified muscle, fascia and tendon at shoulder and upper arm level, right arm, initial encounter Coding Level of Care Code Est Pt Level 4 (76091) Diagnoses Strain of right shoulder, initial encounter S46.911A Encounter type: initial encounter
[2024-12-07 13:11] VITALS: BP 116/76; PULSE 78; TEMP 36.8; O2SAT 97; BMI 30.4
--- OUTSIDE RECORDS SUMMARY | 2024-12-07 13:56 | XMS_ITS | Patient Health Record ---
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 Problem Chronic ulcer of foot (383596664) Non-pressure chronic ulcer of other part of left foot with fat layer exposed (L97.522) Active confirmed Problem Localized, primary osteoarthritis of the ankle and/or foot (578986684) Primary osteoarthritis, right ankle and foot (M19.071) Active confirmed Problem Localized, primary osteoarthritis of the ankle and/or foot (425076508) Primary osteoarthritis, left ankle and foot (M19.072) Active confirmed Problem Acquired hallux valgus (37810881) Hallux valgus (acquired), right foot (M20.11) Active confirmed Problem Non-pressure chronic ulcer of other part of left foot limited to breakdown of skin (L97.521) Active confirmed Problem Acquired hammer toe of right foot (5664121928989285) Other hammer toe(s) (acquired), right foot (M20.41) Active confirmed Problem Primary gout (18486134) Idiopathic gout, 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) Active confirmed Problem 316318837 Hammer toe of right foot (M20.41) Active confirmed Problem 475152325 Hammer toe of left foot (M20.42) Active confirmed Problem 22748553 Type 2 diabetes mellitus with polyneuropathy (E11.42) Active confirmed Problem 58238135956249258 Non-pressure chronic ulcer left lower leg, limited to breakdown skin (L97.921) Active confirmed Problem 95748882028716801 Subacute osteomyelitis of right foot (M86.271) Active confirmed Problem 42852438 Ulcer of right lower extremity with bone involvement without evidence of necrosis (L97.916) Active confirmed Problem 766102918 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) Active confirmed Vital Signs Height 5 ft 9 in in 03/26/2024 Weight 205 lbs 03/26/2024 BMI 30.27 kg/m2 03/26/2024 Encounters Encounter Location Date Provider Diagnosis [facility] [place] [address] [place] [address] 03/26/2024 Demian Christianson Tinea unguium B35.1 ; Ingrowing nail L60.0 ; Pain in right toe(s) M79.674 ; Type 2 diabetes mellitus with polyneuropathy E11.42 ; Pain in left toe(s) M79.675 ; Guillain-Guilford syndrome G61.0 ; Hallux valgus (acquired), right [...] in left toe(s) (ICD-10 - M79.675) 03/26/2024 Guillain-Guilford syndrome (ICD-10 - G61.0) 03/26/2024 Hallux valgus [...] X ray : Foot, right 3V 09/11/2021 95953-AFWAQGF NAIL, 6 OR MORE 12/05/2017 68943-YBKKXQG NAIL, 6 OR MORE 06/10/2018 05087-UZTVWBJ NAIL, 6 OR MORE 03/06/2018 29943-LZMQQXS NAIL, 6 OR MORE 09/04/2017 75230-HEHZDWV NAIL, 6 OR MORE 06/14/2016 73162-LXHJWMR NAIL, 6 OR MORE 09/05/2016 91209-JRBCHYX NAIL, 6 OR MORE 11/29/2016 91316-MLZTKVS NAIL, 6 OR MORE 03/06/2017 22283-JZSZIMV NAIL, 6 OR MORE 06/05/2017 42788-Mpeepxwl Plate 07/07/2014 78936-Ivfwlexl Plate 12/06/2014 20162-Lgfttdnq Plate 02/28/2015 35575-Lalirvvk Plate 05/30/2015 64230-Pcooazvw Plate 08/31/2015 23789-Bvhstwqx Plate 11/30/2015 25973-Bzlxifxv Plate 03/28/2016 30362-Zzuvhbwn Plate 06/14/2016 19053-Kqqfegvp Plate Each Additional 26940- Debride <25 sq cm 02/28/2015 69988- Debride <25 sq cm 08/30/2014 29552- Debride <25 sq cm 12/06/2014 42101- Debride <25 sq cm 11/08/2017 04469- Debride <25 sq cm 11/22/2017 89568- Debride <25 sq cm 12/05/2017 16436- Debride <25 sq cm 12/26/2017 19207- Debride <25 sq cm 01/22/2018 44916-KLGUVBC SKIN/TISSUE 10/25/2017 48055-IEHDEHH SKIN/TISSUE 11/11/2019 37930-ITXNYUO SKIN/TISSUE 08/17/2021 07906-LWMRRZD SKIN/TISSUE 09/11/2021 40866-QSYELIG SKIN/TISSUE 09/21/2022 25211-EVTXJFT SKIN/TISSUE 08/07/2021 20865-HRSVHFU SKIN/TISSUE 08/10/2021 87354- I&D ABSCESS-COMPLICATED,MULTI 03/2019 04615- I&D ABSCESS-COMPLICATED,MULTI 05/2018 08937-PNLC SKIN LESIONS, OVER 4 12/06/19 18 63855-LRUC SKIN LESIONS, OVER 4 06/10/20 18 33732-LLTH SKIN LESIONS, OVER 4 03/06/20 18 42174-ULCQ SKIN LESIONS, OVER 4 09/05/19 18 56455-BIRW SKIN LESIONS, OVER 4 06/05/20 17 70773-DSWQ SKIN LESIONS, OVER 4 03/06/20 17 80808-QYNH SKIN LESIONS, OVER 4 02/27/20 19 31142-FVIE SKIN LESIONS, OVER 4 05/04/20 19 20801-RFXL SKIN LESIONS, OVER 4 12/04/19 19 33050-YCNJ SKIN LESIONS, OVER 4 07/29/19 20 59273-CJCI SKIN LESIONS, OVER 4 10/29/19 20 16057-ESDH SKIN LESIONS, OVER 4 01/12/20 22 32341-ZTCR SKIN LESIONS, 2 TO 4 08/10/19 22 57837-QLMA SKIN LESIONS, 2 TO 4 07/27/19 21 73806-OSXQ SKIN LESIONS, 2 TO 4 10/27/19 21 27955-OEWH SKIN LESIONS, 2 TO 4 01/26/20 21 60656-PTTJ SKIN LESIONS, 2 TO 4 05/03/20 21 14876-HURF SKIN LESIONS, 2 TO 4 01/25/20 20 18312-TRUT SKIN LESIONS, 2 TO 4 04/25/20 20 47099-VKLFWANS OF HEMATOMA/FLUID 020 75673-BSNRDTZP OF HEMATOMA/FLUID 019 57242-EPPPYZNY OF HEMATOMA/FLUID 018 29389-FJAYHIME OF HEMATOMA/FLUID 018 Insurance Providers Payer Name Payer Address Payer Phone Subscriber Number Group Number Insured Name Patient Relationship to Insured Coverage Start Date Coverage End Date [employer] [place] Medicare [employer]vantage [address] [place] [address] [id number] Lucas Camilo Self - patient is the insured Medical (General) History Medical History History ICD Code Hiatal hernia High blood pressure Nerve disorder Neuropathy Prostate conditions Guillain Guilford Syndrome type II diabetes Surgical History Surgery Date(Month/Year) appendectomy eye surgery - right eye 12/2017 HT L2nd, Skin disorder L 07/02/19 xrays RT foot ap/lat/lo 11/18/19 Hospitalization History Reason Date(Month/Year) pt went to [facility] for a thang baree.
== END 2024-12-07 15:56 | disposition home or self-care (01) ==
PROVIDERS: PCP Internal Medicine; Visit Provider Physician Assistant Medical
DX: S46.911A Strain of unspecified muscle, fascia and tendon at shoulder and upper arm level, right arm, initial encounter (principal)

== ENCOUNTER → 2024-12-07 13:49 | Outpatient (BNV) | payer MEDICARE, SELFPAY | PROVIDERS: PCP Internal Medicine; Visit Provider Radiology Diagnostic Radiology | DX: M19.011 Primary osteoarthritis, right shoulder (principal) | CPT/HCPCS: 73030 ==

== ENCOUNTER 2025-01-12 08:53 | Outpatient (REF) | payer MEDICARE, SELFPAY ==
--- NOTE | 2025-01-12 08:57 | EMG_ITS ---
Please see the attached neurophysiology report MTDD
--- OUTSIDE RECORDS SUMMARY | 2025-01-12 09:07 | XMS_ITS | Clinical Summary ---
Author Organization [address] [place] [address] Address [address] [place] [address] Phone Care Team Providers Care Product Development Ecologist Name Role Phone Parish Vincent MD Primary Care Provider [phone] Allergies Active Allergy Reactions Criticality Noted Date [...] Encounters Date Type Department Care Team Description 11/03/2024 1:30 PM EDT Office Visit Orthopedic Surgery [facility] [address] [address] Skip Christianson DPM Acquired hammer toe of right foot (Primary Dx); Dermatophytosis of nail; Guillain-[place] disease (CMS/HCC V24); Pain in toe of left foot; Pain in toe of right foot; Corns and callosities; Metatarsalgia of both feet; Bilateral femoral artery stenosis (CMS/HCC V24); Neuropathy; Primary osteoarthritis of both feet; Follow-up exam from Last 3 Months Social History Tobacco [...] Care Team (Late st Contact Info) Description 02/03/2025 2:15 PM EDT Office Visit Orthopedic Surgery - [place] [address] [phone] Skip Christianson, DPErnie [address] [address] Health Maintenance Due Date Last Done Comments Zoster Vaccines (1 of 2) 1990 Pneumococcal Vaccine: 50+ Years (2 of 2 - PCV) 06/20/2016 06/20/2015 Cholesterol Screening (Lipid Panel) 05/30/2022 Depression Screening 05/30/2022 Falls Risk Assessment 05/30/2022 Medicare Annual Wellness Visit 05/30/2022 Social Influencers of Health Screening 05/30/2022 COVID-19 Vaccine ( season) 2024 03/21/2024, 03/28/2023, 04/10/2022, Additional history exists Influenza Vaccine (#1) 2025 , 03/28/2023, 04/10/2022, Additional history exists DTaP,Tdap,and Td Vaccines (2 - Td or Tdap) 03/29/2026 03/29/2016 RSV Immunization Adult Patients Completed 03/21/2024 HIB Vaccines Aged Out No [...] age to complete this topic Meningococcal B Vaccine Aged Out No l onger eligible based on patient's age to complete this topic RSV Immunization Patients Under 20 months Aged Out No longer eligible based on patient's age to complete this topic Varicella Vaccines Aged Out No longer eligible based on patient's age to complete this topic Procedures Procedure Name Priority Date/Time Associated Diagnosis Comments XR FOOT 3+ VIEWS BILAT Routine 11/03/2024 1:27 PM EDT Follow-up exam from Last 3 Months Results * XR Foot 3+ Views bilat (11/03/2024 1:27 PM EDT) Anatomical Region Laterality Modality Lower Extremities, Foot Bilateral Computed Radiography Narrative 11/03/2024 5:48 PM EDT Right foot 3 views Severe deformity pes planus foot type with Lisfranc's instability subluxation/dislocation divergent chronic osteoarthritis and deformity Collapse of midfoot Left foot 3 views Severe deformity pes planus foot type with Lisfranc's instability dislocation divergent chronic osteoarthritis and deformity Collapse of midfoot Skip Christianson DPM IMG XR PROCEDURES Final R esult from Last 3 Months Insurance [employer] [place] [employer] Care Teams Product Development Ecologist Relationship Specialty Start Date End Date Parish Vincent MD [address] [place] [address] PCP - General Internal Medicine 09/12/21
--- OUTSIDE RECORDS SUMMARY | 2025-01-12 09:07 | XMS_ITS | Patient Health Record ---
Author Organization [facility] Bhumika rj Juan Address [address] [facility] [place] [address] Care Team Providers Care Experimental Rocketsled Mechanic Name Role Phone Melisa PEDRO, Parish Primary Care Provider Demian Bishop Unavailable [phone] Allergies Allergen (clinical drug ingredient) Drug/Non Drug [...] milk as needed Orally Three times a day; Duration: 30 days 06/17/2019 Not-Taking Gabapentin 300 MG 1 capsule Orally Once a day hs; Duration: 10 days 06/17/2019 Not-Taking Augmentin 500-125 MG 1 tablet Orally every 8 hrs; start on 07/01/2019; Duration: 30 days 06/17/2019 Not-Taking Amoxicillin Not-Taki ng Clotrimazole-Betamethasone 1-0.05 % 1 application to affected area Externally Twice a day to affected areas on feet; Duration: 30 days 02/26/2019 Not-Taking Prednisone 1 tab Oral Not-Taki ng Keflex 500 MG 1 capsule Orally every 12 hrs; Duration: 10 day(s) 10/10/2017 Not-Taking Bactrim DS 800-160 MG 1 tablet Orally every 12 hrs; Duration: 10 day(s) 10/25/2017 Not-Taking Augmentin 500-125 MG 1 tablet Orally every 8 hrs; Duration: 10 days 01/07/2019 Not-Taking Prednisone 7.5 mg [...] 800-160 MG 1 tablet Orally Twice a day; Duration: 10 day(s) 10 days Not-Taking Custom Orthotics as directed 03/26/2024 Active Silvadene 1 % 1 application to affected area Externally Once a day; Duration: 30 days Not-Taking Augmentin 500-125 MG 1 tablet Orally every 8 hrs; Duration: 30 days Not-Taking Vitamin E 180 MG [...] Risk Notes Problem Pain in left foot (566351998545271) Pain in left foot (M79.672) Active confirmed Problem Guillain-Rogers syndrome (72225683) 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) Active confirmed Problem Chronic ulcer of foot (216368898) Non-pressure chronic ulcer of other part of left foot with fat layer exposed (L97.522) Active confirmed Problem Localized, primary osteoarthritis of the ankle and/or foot (345110862) Primary osteoarthritis, right ankle and foot (M19.071) Active confirmed Problem Localized, primary osteoarthritis of the ankle and/or foot (196219469) Primary osteoarthritis, left ankle and foot (M19.072) Active confirmed Problem Acquired hallux valgus (67612817) Hallux valgus (acquired), right foot (M20.11) Active confirmed Problem Non-pressure chronic ulcer of other part of left foot limited to breakdown of skin (L97.521) Active confirmed Problem Acquired hammer toe of right foot (3585654594934447 ) Other hammer toe(s) (acquired), right foot (M20.41) Active confirmed Problem Primary gout (57443746) Idiopathic gout, 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) Active confirmed Problem Acquired hammer toe of right foot (3681056964293911 ) Hammer toe of right foot (M20.41) Active confirmed Problem Acquired hammer toe of left foot (1549101308299190 ) Hammer toe of left foot (M20.42) Active confirmed Problem Polyneuropathy due to type 2 diabetes mellitus (717431433) Type 2 diabetes mellitus with polyneuropathy (E11.42) Active confirmed Problem Non-pressure chronic ulcer left lower leg, limited to breakdown skin (L97.921) Active confirmed Problem Subacute osteomyelitis of right foot (9306016119424746 2) Subacute osteomyelitis of right foot (M86.271) Active confirmed Problem Ulcer of right lower extremity with bone involvement without evidence of necrosis (L97.916) Active confirmed Problem Charcot's arthropathy (218006058) 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) Active confirmed Vital Signs Height 5 ft 9 in in 03/26/2024 Weight 205 lbs 03/26/2024 BMI 30.27 kg/m2 03/26/2024 Encounters Encounter Location Date Provider Diagnosis [facility] [place] [address] [place] [address] 03/26/2024 Demian Christianson Tinea unguium B35.1 ; Ingrowing nail L60.0 ; Pain in right toe(s) M79.674 ; Type 2 diabetes mellitus with polyneuropathy E11.42 ; Pain in left toe(s) M79.675 ; Guillain-Rogers syndrome G61.0 ; Hallux valgus (acquired), right [...] in left toe(s) (ICD-10 - M79.675) 03/26/2024 Guillain-Rogers syndrome (ICD-10 - G61.0) 03/26/2024 Hallux valgus [...] X ray : Foot, right 3V 09/11/2021 77730-VJNLBWA NAIL, 6 OR MORE 12/05/2017 12481-TCEWRPT NAIL, 6 OR MORE 06/10/2018 16426-MDTXXGZ NAIL, 6 OR MORE 03/06/2018 33399-PVFTJDK NAIL, 6 OR MORE 09/04/2017 06494-MKBCLKX NAIL, 6 OR MORE 06/14/2016 36550-CSANCGG NAIL, 6 OR MORE 09/05/2016 82822-VXEZCTF NAIL, 6 OR MORE 11/29/2016 61647-MPPFIBA NAIL, 6 OR MORE 03/06/2017 17917-XWMPYHW NAIL, 6 OR MORE 06/05/2017 61917-Fcdiuklf Plate 07/07/2014 25631-Ftidkgcz Plate 12/06/2014 37892-Bacsqfwu Plate 02/28/2015 77190-Pwliolxj Plate 05/30/2015 84299-Inrpxokv Plate 08/31/2015 79425-Qxaaiwtt Plate 11/30/2015 47829-Agshfknc Plate 03/28/2016 32001-Tovsyywc Plate 06/14/2016 68311-Xcdemumf Plate Each Additional 44044- Debride <25 sq cm 02/28/2015 34832- Debride <25 sq cm 08/30/2014 25830- Debride <25 sq cm 12/06/2014 89161- Debride <25 sq cm 11/08/2017 80228- Debride <25 sq cm 11/22/2017 93486- Debride <25 sq cm 12/05/2017 46951- Debride <25 sq cm 12/26/2017 17574- Debride <25 sq cm 01/22/2018 68846-MZUUHZX SKIN/TISSUE 10/25/2017 86902-CHKDTSK SKIN/TISSUE 11/11/2019 12474-YSPERKT SKIN/TISSUE 08/17/2021 61676-VHKSHPR SKIN/TISSUE 09/11/2021 92089-DUWQBAU SKIN/TISSUE 09/21/2022 69878-VAIRAKR SKIN/TISSUE 08/07/2021 39880-WRWYULZ SKIN/TISSUE 08/10/2021 33938- I&D ABSCESS-COMPLICATED,MULTI 03/2019 33484- I&D ABSCESS-COMPLICATED,MULTI 05/2018 48226-AZXM SKIN LESIONS, OVER 4 12/06/19 18 73963-ENIY SKIN LESIONS, OVER 4 06/10/20 18 43450-DMEE SKIN LESIONS, OVER 4 03/06/20 18 11393-CLRS SKIN LESIONS, OVER 4 09/05/19 18 11836-NFJV SKIN LESIONS, OVER 4 06/05/20 17 76311-SSEH SKIN LESIONS, OVER 4 03/06/20 17 98956-WBDU SKIN LESIONS, OVER 4 02/27/20 19 92262-UPLI SKIN LESIONS, OVER 4 05/04/20 19 09655-RGMR SKIN LESIONS, OVER 4 12/04/19 19 77242-NWYZ SKIN LESIONS, OVER 4 07/29/19 20 19333-MABO SKIN LESIONS, OVER 4 10/29/19 20 05999-CSAH SKIN LESIONS, OVER 4 01/12/20 22 83768-DTSA SKIN LESIONS, 2 TO 4 08/10/19 22 44910-UVFB SKIN LESIONS, 2 TO 4 07/27/19 21 57731-QVTN SKIN LESIONS, 2 TO 4 10/27/19 21 65367-ZOHE SKIN LESIONS, 2 TO 4 01/26/20 21 06315-NGAD SKIN LESIONS, 2 TO 4 05/03/20 21 58900-LZSI SKIN LESIONS, 2 TO 4 01/25/20 20 41414-TLVO SKIN LESIONS, 2 TO 4 04/25/20 20 08660-GMYSDJYI OF HEMATOMA/FLUID 020 79303-IEFGBCKG OF HEMATOMA/FLUID 019 25749-EAVEWCHU OF HEMATOMA/FLUID 018 26349-ZLIZZMTO OF HEMATOMA/FLUID 018 Insurance Providers Payer Name Payer Address Payer Phone Subscriber Number Group Number Insured Name Patient Relationship to Insured Coverage Start Date Coverage End Date [employer] [place] Medicare Advantage [address] [place] [address] [id number] Lucas Camilo Self - patient is the insured Medical (General) History Medical History History ICD Code Hiatal hernia High blood pressure Nerve disorder Neuropathy Prostate conditions Guillain Rogers Syndrome type II diabetes Surgical History Surgery Date(Month/Year) appendectomy eye surgery - right eye 12/2017 HT L2nd, Skin disorder L 07/02/19 xrays RT foot ap/lat/lo 11/18/19 Hospitalization History Reason Date(Month/Year) pt went to [facility] for a thang baree.
== END 2025-01-12 08:54 | disposition home or self-care (01) ==
LOC: HO.NEURO 08:53
PROVIDERS: PCP Internal Medicine; Visit Provider Internal Medicine
DX: R29.898 Other symptoms and signs involving the musculoskeletal system (principal); G62.9 Polyneuropathy, unspecified
CPT/HCPCS: 95886; 95913

== ENCOUNTER → 2025-01-12 08:57 | Outpatient (BNV) | payer MEDICARE, SELFPAY | PROVIDERS: PCP Internal Medicine; Visit Provider Psychiatry & Neurology Neurology | DX: G61.81 Chronic inflammatory demyelinating polyneuritis (principal) | CPT/HCPCS: 95886; 95911 ==

== ENCOUNTER 2025-01-21 10:30 | Outpatient (AMB) | payer MEDICARE, SELFPAY ==
[2025-01-21 11:05] VITALS: BP 110/60; PULSE 95; O2SAT 75; BMI 29.7
--- NOTE | 2025-01-21 11:05 | A.OFFVIS_ITS ---
Vital Signs 01/21/25 11:05 Height 5 ft 9 in Weight 201 lb BMI 29.7 BP 110/60 Blood Pressure Location Rt brachial Position Sitting Pulse 95 Pulse Source Pulse Oximeter Pulse Oximetry (%) 75 L Oxygen Delivery Method Room Air Intake Visit Reasons: EUA-Okbgqbms-Lfbis syndrome Port Drier Required: No Allergies hydrochlorothiazide (HCTZ) Allergy (Mild, Verified 01/21/25 11:06) MD ADVISED PATIENT NOT TO TAKE AGAIN TABITHA Inhibitors Allergy (Unknown, Verified 01/21/25 11:06) Unknown lisinopril (LISINOPRIL) Allergy (Unknown, Verified 01/21/25 11:06) COUGH HPI Comments Details: 84y/o male comes for further management of possible CIDP .At age 19 he had quadriplegia- admitted and with Guillian [place] syndrome . he is not sure what treatment he got but he slowly recovered in 1 year. he was hospitalized for 6 mths. He was fine until he turned 60-he noticed numbness in his becka feet and acute weakness of his becka LE. He went to ER - spinal tap c/w GBS . He was given 5 day IVIG . He recovered in 2 weeks . He was maintained on monthly then every 6 mths but due to insurance denial he stopped. 1 mth later he had another similar episode - that patient realized that everytime he got respiratory or sinus infection he had an episode but if he had antibiotics started immediately he was fine. In 2020 he developed becka LE weakness- seen by , EMG showed demyelination and CSF showed albuminocytologic dissociation. He was treated with IVIG. 3 mths ago he started noticing numbness weakness in becka hand. His feet was always numb. His recent EMG UE 01/12 - shows Moderate to severe chronic sensory and motor neuropathy with demyelinating and axonal features. 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 Amputation toe History of brain surgery History of appendectomy Family History Father Medical history unknown Mother Heart disease Brother Liver cancer Social History Housing: House Alcohol intake: never Patient Tobacco Use Status: Former Tobacco user Tobacco use type: Cigarette Years Smoked: stopped 1994 e-Cigarette/Vaping Use: Never Used Second Hand Smoke Exposure: No service: No Current occupational status: retired Cognitive needs: No Hearing needs: No Vision needs: Yes (reading glasses) Physical Exam Vital Signs: Last Vital Signs Pulse 95 01/21/25 11:05 BP 110/60 01/21/25 11:05 Pulse Ox 75 L 01/21/25 11:05 Oxygen Delivery Method Room Air 01/21/25 11:05 BMI result Body Mass Index 29.7 Const General: cooperative, healthy appearing, comfortable, no acute distress and well developed Nutritional Appearance: overweight Orientation/consciousness: patient oriented x3 Eyes Pupils: Equal, round and reactive pupils present Neuro Other: Gait- mild antalgic 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 General: patient oriented x3, tone normal and moves all extremities Cranial nerves: Yes Facial sensation intact/muscles of mastication intact, Yes Equal, round and reactive pupils present, Yes Bilaterally intact EOM present, Yes Nystagmus not present, Yes Normal facial strength present and Yes Midline to ngue present Cognition (Neuro): normal cognition Gait exam (Neuro): Antalgic gait present Motor exam (neuro): 5/5 motor strength present throughout and Normal motor muscle tone present throughout Deep tendon reflexes (DTR's): Right triceps reflex intensity grade: 1+, Left triceps reflex intensity grade: 1+, Rt Biceps (C5, C6): 0, Left biceps reflex intensity grade: 0, Right brachioradialis reflex intensity grade: 0, Left brachioradialis reflex intensity grade: 0, Right patellar reflex intensity grad e: 0 and Left patellar reflex intensity grade: 0 Coordination: wknhug-cf-umgn test normal Assessment & Plan Assessment & Plan (1) CIDP (chronic inflammatory demyelinating polyneuropathy): Code(s): G61.81 - Chronic inflammatory demyelinating polyneuritis Category: Medical Plan He wants to continue PT for now and will consider IVG if he worsens. He needs to go to ER if he develops new weakness as he would need urgent IVIG infusion. Coding Level of Care Code New Pt Level 4 (53023) Diagnoses CIDP (chronic inflammatory demyelinating polyneuropathy) G61.81
--- OUTSIDE RECORDS SUMMARY | 2025-01-21 11:23 | XMS_ITS | Clinical Summary ---
Author Organization [address] [place] [address] Address [address] [place] [address] Phone Care Team Providers Care Sand Mill Operator Core Sand Name Role Phone Parish Vincent MD Primary Care Provider [phone] Allergies Active Allergy Reactions Criticality Noted Date [...] 1:30 PM EDT Office Visit Orthopedic Surgery [facility] [address] [phone] Skip Christianson DPM Acquired hammer toe of right foot (Primary Dx); Dermatophytosis of nail; Guillain-[place] disease (CMS/HCC V24); Pain in toe of [...] PM EDT Office Visit Orthopedic Surgery - [place] [address] [phone] Skip Christianson, DPErnie [address] [address] Health Maintenance Due Date Last Done Comments Zoster Vaccines (1 of 2) 1990 Pneumococcal Vaccine: 50+ Years (2 of 2 - PCV) 06/20/2016 06/20/2015 Cholesterol Screening (Lipid Panel) 05/30/2022 Falls Risk Assessment 05/30/2022 Medicare Annual Wellness Visit 05/30/2022 Social Influencers of Health Screening 05/30/2022 Depression Screening 07/01/2024 COVID-19 Vaccine ( season) 2024 03/21/2024, 03/28/2023, [...] [employer] [place] [employer] Care Teams Sand Mill Operator Core Sand Relationship Specialty Start Date End Date Parish Vincent MD [address] [place] [address] PCP - General Internal Medicine 09/12/21
--- OUTSIDE RECORDS SUMMARY | 2025-01-21 11:23 | XMS_ITS | Patient Health Record ---
Author Organization [facility] B[facility]ika rj Juan Address [address] [facility] [place] [address] Care Team Providers Care Pairer Odds Name Role Phone Melisa PEDRO, Parish Primary Care Provider Demian Bishop Unavailable [phone] Allergies Allergen (clinical drug ingredient) Drug/Non Drug [...] Vaccine Route Administration Date Status Comme nts Influenza Unknown 11/08/2017 Refused Influenza Unknown 09/10/2018 Refused Influenza Unknown 04/25/2020 Refused Influenza Unknown 05/01/2022 Administered Influenza Unknown 03/01/2023 Administered COVID-19 Pfizer BioNTech Vaccine Unknown 05/01/2022 Administered 1st 07/30/2020,08/20/20 05/02/21 Social History Tobacco Use: Social History Observation [...] Risk Notes Problem Pain in left foot (694624199619801) Pain in left foot (M79.672) Active confirmed Problem 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 Problem Chronic ulcer of foot (641232276) Non-pressure chronic ulcer of other part of left foot with fat layer exposed (L97.522) Active confirmed Problem Localized, primary osteoarthritis of the ankle and/or foot (318693039) Primary osteoarthritis, right ankle and foot (M19.071) Active confirmed Problem Localized, primary osteoarthritis of the ankle and/or foot (365944767) Primary osteoarthritis, left ankle and foot (M19.072) Active confirmed Problem Acquired hallux valgus (66729829) Hallux valgus (acquired), right foot (M20.11) Active confirmed Problem Non-pressure chronic ulcer of other part of left foot limited to breakdown of skin (L97.521) Active confirmed Problem Acquired hammer toe of right foot (4526748019923258 ) Other hammer toe(s) (acquired), right foot (M20.41) Active confirmed Problem Primary gout (56537916) Idiopathic gout, 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) Active confirmed Problem Acquired hammer toe of right foot (9345839771630622 ) Hammer toe of right foot (M20.41) Active confirmed Problem Acquired hammer toe of left foot (9495323326596202 ) Hammer toe of left foot (M20.42) Active confirmed Problem Polyneuropathy due to type 2 diabetes mellitus (374242809) Type 2 diabetes mellitus with polyneuropathy (E11.42) Active confirmed Problem Non-pressure chronic ulcer left lower leg, limited to breakdown skin (L97.921) Active confirmed Problem Subacute osteomyelitis of right foot (2915472241079707 2) Subacute osteomyelitis of right foot (M86.271) Active confirmed Problem Ulcer of right lower extremity with bone involvement without evidence of necrosis (L97.916) Active confirmed Problem Charcot's arthropathy (785831041) 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) Active confirmed Vital Signs Height 5 ft 9 in in 03/26/2024 Weight 205 lbs 03/26/2024 BMI 30.27 kg/m2 03/26/2024 Encounters Encounter Location Date Provider Diagnosis [facility] [place] [address] [place] [address] 03/26/2024 Demian Christianson Tinea unguium B35.1 ; Ingrowing nail L60.0 ; Pain in right toe(s) M79.674 ; Type 2 diabetes mellitus with polyneuropathy E11.42 ; Pain in left toe(s) M79.675 ; Guillain-Big Pool syndrome G61.0 ; Hallux valgus (acquired), right [...] in left toe(s) (ICD-10 - M79.675) 03/26/2024 Guillain-Big Pool syndrome (ICD-10 - G61.0) 03/26/2024 Hallux valgus [...] X ray : Foot, right 3V 09/11/2021 16863-TKPHPXI NAIL, 6 OR MORE 12/05/2017 53348-TKXCFCT NAIL, 6 OR MORE 06/10/2018 98345-YMUZEBE NAIL, 6 OR MORE 03/06/2018 49777-ZAKIUBL NAIL, 6 OR MORE 09/04/2017 34473-AOLPMKZ NAIL, 6 OR MORE 06/14/2016 37217-SRCTPLX NAIL, 6 OR MORE 09/05/2016 07880-FYUISDK NAIL, 6 OR MORE 11/29/2016 36063-QEHJIQK NAIL, 6 OR MORE 03/06/2017 73964-MSQAUTN NAIL, 6 OR MORE 06/05/2017 32149-Hygobido Plate 07/07/2014 94328-Kiilzxwx Plate 12/06/2014 51523-Nicgtywq Plate 02/28/2015 79937-Hlcivecf Plate 05/30/2015 53610-Whvjlogl Plate 08/31/2015 33963-Mtdjlwtc Plate 11/30/2015 06231-Kallzkpp Plate 03/28/2016 49162-Muhtlfjo Plate 06/14/2016 89305-Wivhqret Plate Each Additional 11718- Debride <25 sq cm 02/28/2015 59558- Debride <25 sq cm 08/30/2014 84343- Debride <25 sq cm 12/06/2014 60930- Debride <25 sq cm 11/08/2017 83302- Debride <25 sq cm 11/22/2017 10625- Debride <25 sq cm 12/05/2017 65478- Debride <25 sq cm 12/26/2017 79694- Debride <25 sq cm 01/22/2018 45136-ZWBLKGN SKIN/TISSUE 10/25/2017 15074-JIUVMZI SKIN/TISSUE 11/11/2019 19078-JRNGYNQ SKIN/TISSUE 08/17/2021 58505-XEAJHRF SKIN/TISSUE 09/11/2021 31286-IPPCSIB SKIN/TISSUE 09/21/2022 02640-SXDMGCK SKIN/TISSUE 08/07/2021 55251-XUUOYNS SKIN/TISSUE 08/10/2021 59672- I&D ABSCESS-COMPLICATED,MULTI 03/2019 00773- I&D ABSCESS-COMPLICATED,MULTI 05/2018 86164-ODVO SKIN LESIONS, OVER 4 12/06/19 18 84109-WNXY SKIN LESIONS, OVER 4 06/10/20 18 62703-QUCM SKIN LESIONS, OVER 4 03/06/20 18 98114-ZYLR SKIN LESIONS, OVER 4 09/05/19 18 87228-NMZS SKIN LESIONS, OVER 4 06/05/20 17 95435-YIUV SKIN LESIONS, OVER 4 03/06/20 17 29383-ZSLT SKIN LESIONS, OVER 4 02/27/20 19 13681-HKCZ SKIN LESIONS, OVER 4 05/04/20 19 98610-YZYK SKIN LESIONS, OVER 4 12/04/19 19 17686-JIYZ SKIN LESIONS, OVER 4 07/29/19 20 06613-UHZO SKIN LESIONS, OVER 4 10/29/19 20 95008-FJMX SKIN LESIONS, OVER 4 01/12/20 22 65055-YSPN SKIN LESIONS, 2 TO 4 08/10/19 22 73368-OXQD SKIN LESIONS, 2 TO 4 07/27/19 21 05141-GGYI SKIN LESIONS, 2 TO 4 10/27/19 21 80801-QJGU SKIN LESIONS, 2 TO 4 01/26/20 21 55841-MUCG SKIN LESIONS, 2 TO 4 05/03/20 21 94363-QFDQ SKIN LESIONS, 2 TO 4 01/25/20 20 35089-AMDT SKIN LESIONS, 2 TO 4 04/25/20 20 03693-FWYVEGXN OF HEMATOMA/FLUID 020 22538-NWAJBTOF OF HEMATOMA/FLUID 019 03866-KUMBVIWH OF HEMATOMA/FLUID 018 75756-LMYMDBTQ OF HEMATOMA/FLUID 018 Insurance Providers Payer Name Payer Address Payer Phone Subscriber Number Group Number Insured Name Patient Relationship to Insured Coverage Start Date Coverage End Date [employer] [address] [place] [address] [id number] Lucas Camilo Self - patient is the insured Medical (General) History Medical History History ICD Code Hiatal hernia High blood pressure Nerve disorder Neuropathy Prostate conditions Guillain Big Pool Syndrome type II diabetes Surgical History Surgery Date(Month/Year) appendectomy eye surgery - right eye 12/2017 HT L2nd, Skin disorder L 07/02/19 xrays RT foot ap/lat/lo 11/18/19 Hospitalization History Reason Date(Month/Year) pt went to [facility] for a thang baree.
== END 2025-01-21 12:06 | disposition home or self-care (01) ==
LOC: HO.HSMS 10:31
PROVIDERS: PCP Internal Medicine; Visit Provider Psychiatry & Neurology Neurology
DX: G61.81 Chronic inflammatory demyelinating polyneuritis (principal)
CPT/HCPCS: 99204

== ENCOUNTER → 2025-01-21 10:30 | Outpatient (BNVA) | payer MEDICARE, SELFPAY | PROVIDERS: PCP Internal Medicine; Visit Provider Psychiatry & Neurology Neurology | DX: G61.81 Chronic inflammatory demyelinating polyneuritis (principal); G61.0 Guillain-Barre syndrome | CPT/HCPCS: 99202 ==

== ENCOUNTER 2025-03-26 13:23 | Outpatient (AMB) | payer MEDICARE, SELFPAY ==
--- OUTSIDE RECORDS SUMMARY | 2024-02-24 09:45 | XMS_ITS ---
Author Organization [facility] Address [address] [place] [address] Care Team Providers Care Crm Functional Analyst Name Role Phone Parish Vincent MD Primary Care Provider Demian Bishop Unavailable [phone] REASON FOR VISIT Painful nail(s) aggrevated by shoes and causing difficulty standing/walking. 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 Patient chooses, no pharmaceutical tx (17327) Debride skin< 25 sq cm Open wound [...] symptoms of infection or any untoward reactions (83779) Keratoma Treatment Parring or Cutting o f Benign Hyperkeratotic Lesion(s) 26606 ( >4 Lesions) - The Benign hyperkeratotic lesions, as described above were pared, and/or cut utilizing a sterile #15 blade, tissue nippers, and/or dremel Progress Notes * Lucas CAMILODOB:[birth year] (84 yo M)Acc No.[id number]:02/24/2024 Progress Note Patient: Lucas PAYNE Provider: Jannette Christianson DPM :1940 A ge:83 Y S ex:Male Date:02/24/2024 Address:[address], [id number] Pcp:Parish Vincent MD Subjective: * Chief Complaints: [...] enies. C ardiovascular: Pacemaker a dmits. M PUDDLER HELPER d enies. W PW d enies. C [...] in left toe(s) - M79.675 6 . 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 H allux [...] as necessary. Patient chooses, no pharmaceutical tx (64574). D ebride skin< 25 sq cm: Open [...] symptoms of infection or any untoward reactions (66125).? K eratoma Treatment: Parring or Cutting of Benign Hyperkeratotic Lesion(s) 1 1057 ( >4 Lesions) - The Benign hyperkeratotic lesions, as described above were pared, and/or cut utilizing a sterile #15 blade, tissue nippers, and/or dremel. * Procedure Codes: 1 1721 DEBRIDE NAIL, 6 OR MORE, Modifiers: XS , 79788 TRIM SKIN LESIONS, OVER 4, Modifiers: XS * Follow Up: 3 Months * Images: * The named appointment provid er may or may not be the originator of this progress note, and it is not deemed complete until electronically signed by the appointment provider. Sign off status: Pending * Provider: Jannette Christianson DPM Date: 02/24/2024 Generated for Niya Jordan/Ingrid on: 03/26/2025 02:40 PM EDT History and Physical Notes * HPI (History [...]
[2025-03-26 13:43] VITALS: BP 120/64; PULSE 76; TEMP 36.2; O2SAT 96; BMI 29.8
--- NOTE | 2025-03-26 13:43 | MHC.PC.OV ---
Vital Signs 03/26/25 13:43 Height 5 ft 9 in Weight 201 lb 8 oz BMI 29.8 BP 120/64 Blood Pressure Location Lt brachial Position Sitting Pulse 76 Pulse Source Pulse Oximeter Temp 97.1 F Temp Source Temporal Artery Scan Pulse Oximetry (%) 96 Oxygen Delivery Method Room Air Intake Visit Reasons: Annual exam Allergies hydrochlorothiazide (HCTZ) Allergy (Mild, Verified 03/26/25 13:46) ADVISED PATIENT NOT TO TAKE AGAIN TABITHA Inhibitors Allergy (Unknown, Verified 03/26/25 13:46) Unknown lisinopril (LISINOPRIL) Allergy (Unknown, Verified 03/26/25 13:46) COUGH Medication List - Last Reconciled 03/26/25 by Aracelis Ford MD amlodipine 10 mg PO DAILY cetirizine (Zyrtec) 10 mg PO DAILY PRN losartan 100 mg PO DAILY simvastatin 20 mg PO BEDTIME vitamin E (dl, acetate) 180 mg PO DAILY Tobacco use date assessed: 03/26/25 Fall risk assessment: 1 Fall in past year Last assessed Fall Risk: 03/26/25 Dental Screening Dental Screen Date: 03/26/25 Did you have a dental visit in the last 12 months?: Yes Did you have a dental problem in the last 6 months where you did not have access to dental care?: No Was dental information given to patient?: Patient has dentist [facility] Medical History 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 Hypertension Surgical History 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 Amputation toe History of brain surgery History of appendectomy Family History Father Medical history unknown Mother Heart disease Brother Liver cancer Social History (Updated 03/26/25 @ 14:18 by Aracelis Ford MD) Housing: House Alcohol intake: current Comment: 1-2 a year Patient Tobacco Use Status: Former Tobacco user Tobacco use type: Cigarette Years Smoked: stopped 1994 e-Cigarette/Vaping Use: Never Used Second Hand Smoke Exposure: No service: No Current occupational status: retired Cognitive needs: No Hearing needs: No Vision needs: Yes (reading glasses) Questionnaire PHQ-9 Over the last 2 weeks, how often have you been bothered by any of the following problems? 1. Little interest or pleasure in doing things: not at all 2. Feeling down, depressed, or hopeless: not at all 3. Trouble falling or staying asleep, or sleeping too much: not at all 4. Feeling tired or having little energy: nearly every day 5. Poor appetite or overeating: not at all 6. Feeling bad about yourself - or that you are a failure or have let yourself or your family down: not at all 7. Trouble concentrating on things, such as reading the newspaper or watching television: not at all 8. Moving or speaking so slowly that other people could have noticed. Or the opposite - being so fidgety or restless that you have been moving around a lot more than usual: not at all 9. Thoughts that you would be better off or of hurting yourself in some way: not at all Total score: 3 Depression Screening Interpretation: Positive Depression Screening Done: Yes Source: Developed by Drs. Luis Garnett, Melony Leon, Elie Iniguez and colleagues, with an educational negrito from [employer]. Thrive Questionnaire Date Thrive assessed: 11/30/24 I am a: Patient What is your living situation today?: I have a steady place to live Within the past 12 months, did the food you bought not last and you didn't have the money to get more?: Never true Within the past 12 months, did you worry whether your food would run out before you got money to buy more?: I choose not to answer this question Do you have trouble paying for medicines?: No Do you have trouble getting transportation to medical appointments?: I choose not to answer this question Do you have trouble paying your heating and electricity bill?: I choose not to answer this question Do you have trouble taking care of your child, family member or friend?: I choose not to answer this question Do you have trouble with day-to-day activities such as bathing, preparing meals, shopping, managing finances, etc.?: I choose not to answer this question Are you currently unemployed and looking for a job?: I choose not to answer this question Are you interested in more education?: I choose not to answer this question Please select the resources that you would like help with: None Currently or been in a relationship where the following occur: I choose not to answer THRIVE Score: 0 TAMMIE-7 AMB Questionnaire TAMMIE-7 Date TAMMIE - 7 assessed: 08/28/24 Feeling nervous, anxious, or on edge: 3 = Nearly every day Not being able to stop or control worryin = Not at all Worrying too much about different things: 0 = Not at all Trouble relaxin = Not at all Being so restless that it is hard to sit still: 0 = Not at all Becoming easily annoyed or irritable: 0 = Not at all Feeling afraid as if something awful might happen: 0 = Not at all Total TAMMIE-7 score (0-4 normal; 5-9 mild; 10-14 moderate; 15-21 severe): 3 Source: Developed by Drs. Luis Garnett, Melony Leon, Elie Iniguez and colleagues, with an educational negrito from [employer]. Review of Systems Const Denies poor appetite and Denies weakness Eyes Denies no additional complaints ENT Reports Normal hearing present, Denies dizziness, Denies nasal congestion, Denies tinnitus and Denies sore throat Card Denies chest pain, Denies syncope, Denies rapid heart rate and Denies dyspnea Resp Denies cough and Denies dyspnea GI Denies change in stool character, Reports constipation, Denies diarrhea, Denies nausea and Denies vomiting Denies dysuria and Denies urinary frequency Neuro Reports Normal hearing present, Denies confusion, Denies dizziness, Denies syncope and Denies weakness Psych Denies confusion Physical exam (Primary Care) Vital Signs: Last Vital Signs Temp 97.1 F 03/26/25 13:43 Pulse 76 03/26/25 13:43 BP 120/64 03/26/25 13:43 Pulse Ox 96 03/26/25 13:43 Oxygen Delivery Method Room Air 03/26/25 13:43 BMI result Body Mass Index 29.8 Tobacco/Smoking Status: Tobacco use Status Tobacco use date assessed 03/26/25 03/26/25 13:48 Patient Tobacco Use Status Former Tobacco user 03/26/25 13:48 Tobacco use type Cigarette 03/26/25 13:48 e-Cigarette/Vaping Use Never Used 03/26/25 13:48 PHQ-9: PHQ-9 Score PHQ-9: Total score 3 03/26/25 13:48 Depression Screening Interpretation: Positive Thrive Assessment: Date of Thrive Assessment Date Thrive assessed 11/30/24 03/26/25 13:48 Currently or been in a relationship where the following occur: I choose not to answer Const General: alert and awake; No confusion Orientation/consciousness: No confusion HENMT Head: Yes normocephalic Ears: external ears normal and TM's normal bilaterally Face and sinus: Yes normal facial exam Mouth: moist mucous membranes Throat: Yes tonsils normal Eyes Conjunctivae: conjunctivae normal Pupils: Equal, round and reactive pupils present and Pupil accommodation reflex normal Direct Ophthalmoscopy: normal light reflex Neck Neck: No lymphadenopathy Thyroid: Thyroid normal Chest Chest palpation & inspection: normal inspection of the chest Resp Effort & Inspection: normal respiratory effort and no audible wheezes Auscultation: clear to auscultation bilaterally, no crackles, no wheezes and lung sounds not diminished Cardio Rate: regular rate Rhythm: regular rhythm Peripheral pulses: radial pulses present and dorsalis pedis present GI Other: guaaic neg, prosate enalrged , hemorrhoids present Palpation (GI): no masses Auscultation: normal bowel sounds and normoactive bowel sounds Male General Exam: Yes normal external exam Skin General skin exam: no rashes or lesions noted Rashes: no rashes Neuro General: deep tendon reflexes 2+ bilaterally and No confusion Cranial nerves: Yes Equal, round and reactive pupils present, Yes Midline tongue present, Yes Normal hearing present and Yes Ability to bilaterally elevate shoulders present Cognition (Neuro): normal cognition Gait exam (Neuro): Normal gait present Motor exam (neuro): 5/5 motor strength present throughout Deep tendon reflexes (DTR's): Right brachioradialis reflex intensity grade: 2+, Left brachioradialis reflex intensity grade: 2+, Right patellar reflex intensity grade: 2+ and Left patellar reflex intensity grade: 2+ Extrem Other: Noted left multiple finger amputation 2nd 3rd and 4th. General: No edema Results AMB Hemoglobin A1c AMB Hemoglobin A1c 6.4 % Last Edit by Marlin Chavez CMA on 03/26/25 13:52 Results Reviewed Results Reviewed: Laboratory Last Values Hgb A1c (Clinic) 6.4 % (4.0-6.0) H 03/26/25 13:48 Coding Level of Care Code Est Pt Prev Care >65y(18204) Diagnoses Physical exam Z00.00 COPD (chronic obstructive pulmonary disease) J44.9 CIDP (chronic inflammatory demyelinating polyneuropathy) G61.81 BPH (benign prostatic hyperplasia) N40.0 Type 2 diabetes mellitus with hyperglycemia E11.65 Hypertension I10 Hyperlipidemia E78.5 Assessment & Plan Assessment & Plan (1) Physical exam: Code(s): Z00.00 - Encounter for general adult medical examination without abnormal findings Category: Medical Plan: PATIENT IS ADVISED TO EAT HEALTHY, KEEP WELL HYDRATED, KEEP ACTIVE AND HAVE ADEQUATE SLEEP. (2) COPD (chronic obstructive pulmonary disease): Comment: no inhaler Code(s): J44.9 - Chronic obstructive pulmonary disease, unspecified Category: Medical Plan: Stable (3) CIDP (chronic inflammatory demyelinating polyneuropathy): Code(s): G61.81 - Chronic inflammatory demyelinating polyneuritis Category: Medical Plan: Patient is being seen by Neurology had nerve conduction test showing axonal loss and consistent with CIDP. (4) BPH (benign prostatic hyperplasia): Code(s): N40.0 - Benign prostatic hyperplasia without lower urinary tract symptoms Category: Medical Plan: Continuing to monitor. . (5) Type 2 diabetes mellitus with hyperglycemia: Comment: [facility] physician Code(s): E11.65 - Type 2 diabetes mellitus with hyperglycemia Category: Medical Plan: Decrease the amount of carbohydrate intake, pasta, bread, rice and potatoes are all sugar and that is aside from all the sweet stuff, remember that fruits are good but they are Sweet also. Hemoglobin A1c goal of less than 7.0 diet controlled (6) Hypertension: Code(s): I10 - Essential (primary) hypertension Category: Medical Plan: Continue with blood pressure medication. Decrease salt intake and exercise on losartan 100 mg once a day amlodipine 10 mg once a day (7) Hyperlipidemia: Code(s): E78.5 - Hyperlipidemia, unspecified Category: Medical Plan: Avoid fried foods, chicken skin, eggs, butter margarine, pastries and meat. Be it pork or beef they have a lot of cholesterol LDL goal of less than 100 and triglyceride of less than 150 Plan History of Present Illness The patient is an 84-year-old male presenting with the management of multiple chronic conditions including hypertension, diabetes mellitus, hypercholesterolemia, COPD, and CIDP. The patient has a history of hypertension, managed with losartan and amlodipine, and diabetes mellitus, with a recent hemoglobin A1c of 6.4 indicating good control. Hypercholesterolemia is managed with simvastatin, with an LDL level of 84 mg/dL noted in recent blood work. The patient has a history of COPD and Guillain-Tamez? Syndrome, with no recent exacerbations reported. He also has benign prostatic hyperplasia, with a prostate volume of 94 cc noted on ultrasound, and a history of a surgical procedure to improve urinary flow. The patient has chronic inflammatory demyelinating polyneuropathy (CIDP), with symptoms of numbness in both hands and a nerve conduction test showing moderate to severe chronic sensory and motor peripheral neuropathy. He is under the care of neurology and is considering IVIG treatment. 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 He also has a scapholunate ligament injury in the left hand and marginal erosion on the third proximal phalanx of the right hand. The patient has a history of a duodenal ulcer, with no current symptoms or treatment, and hemorrhoids noted during the rectal examination. Health Maintenance - Vaccinations: Flu, COVID-19, shingles, tetanus, RSV, and pneumonia vaccines are up to date. - Blood work: Normal electrolytes, renal function, and liver function tests. LDL cholesterol at 84 mg/dL, hemoglobin A1c at 6.4%. Social History - Alcohol Use: Consumes alcohol infrequently, approximately one beer every two years. - Tobacco Use: Quit smoking 20 years ago. - Recreational Drug Use: Denies use of recreational drugs. - Exercise: Regularly climbs stairs without difficulty. - Diet: Consumes fruits and vegetables regularly, cautious with sugar intake from juices. Review of Systems - General: Denies fever, nausea, or vomiting. - Cardiovascular: Denies chest pain or palpitations. - Respiratory: Denies dyspnea or wheezing. - Gastrointestinal: Reports history of duodenal ulcer, denies current symptoms. - Genitourinary: Reports weak urinary stream, denies dysuria. - Neurological: Reports numbness in both hands. Physical Exam General: Cooperative, healthy appearing, comfortable, no acute distress and well developed Orientation: Patient oriented x3 Limitations: No limitations Head: Normal to inspection Ears: Hearing grossly normal bilaterally, some earwax but open Nose: Normal external nose present Face and sinus: Normal facial exam Eyes: Appearance normal, both eyes and all related structures Neck: Normal visual inspection and Yes full ROM Respiratory: Normal respiratory effort and able to speak in complete sentences. Clear to auscultation bilaterally Cardiovascular: Regular rate and rhythm. Normal S1 and S2 GI: Normal to inspection. Soft to palpation and nontender. Diastasis recti noted Skin: No rashes or lesions noted Neuro: Patient oriented x3 Extremities: Normal to inspection, but patient reports numbness in both hands and feet due to CIDP. X-rays show scapholunate ligament injury in the left hand and marginal erosion on the third proximal phalanx of the right hand. Moderate degenerative arthritis of the AC joint and mild degenerative arthritis changes on the glenohumeral joint noted. Results - Labs: Normal electrolytes, renal function, and liver function tests. LDL cholesterol at 84 mg/dL, hemoglobin A1c at 6.4%. - Imaging: X-ray of shoulder showing moderate degenerative arthritis of the AC joint and mild changes in the glenohumeral joint. - Imaging: X-ray of hand showing scapholunate ligament injury and marginal erosion on the third proximal phalanx. - Ultrasound: Bladder ultrasound showing prostate volume of 94 cc. - Nerve Conduction Study: Moderate to severe chronic sensory and motor peripheral neuropathy consistent with CIDP. Plan Patient was informed and verbally consented to the use of an ambient scribe for clinic note documentation during this visit. 1. Hypertension The patient's hypertension is managed with losartan 100 mg once daily and amlodipine 10 mg once daily. Blood pressure is currently well-controlled at 120/64 mmHg. 2. Diabetes Mellitus The patient's diabetes mellitus is diet-controlled with a goal hemoglobin A1c of less than 7.0%. The current hemoglobin A1c is 6.4%, indicating good glycemic control. 3. Hypercholesterolemia The patient's hypercholesterolemia is managed with simvastatin, with a target LDL cholesterol of less than 100 mg/dL. The current LDL level is 84 mg/dL, which is within the target range. 4. Chronic Obstructive Pulmonary Disease (Copd) The patient has a history of COPD, with no recent exacerbations reported. Continued monitoring and management are advised. 5. Chronic Inflammatory Demyelinating Polyneuropathy (Cidp) The patient is under the care of neurology for CIDP, with symptoms of numbness in both hands. A nerve conduction study showed moderate to severe chronic sensory and motor peripheral neuropathy. IVIG treatment is being considered, and the patient has a follow-up appointment scheduled. 6. Benign Prostatic Hyperplasia (Bph) The patient has benign prostatic hyperplasia with a prostate volume of 94 cc. A surgical procedure was previously performed to improve urinary flow, and continued monitoring is recommended. 7. 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 Management includes monitoring and addressing symptoms as they arise. 8. Scapholunate Ligament Injury The patient has a scapholunate ligament injury in the left hand, confirmed by x-ray. Management includes monitoring and addressing symptoms as they arise. 9. Duodenal Ulcer The patient has a history of a duodenal ulcer, with no current symptoms or treatment required. Continued monitoring is advised. 10. Hemorrhoids The patient has hemorrhoids noted during the rectal examination. Management includes monitoring and addressing symptoms as they arise. Discussion Notes During the visit, we discussed the management of the patient's chronic conditions, including hypertension, diabetes, hypercholesterolemia, COPD, and CIDP. The patient is considering IVIG treatment for CIDP and has a follow-up appointment with neurology. We reviewed the importance of maintaining blood pressure and cholesterol levels within target ranges and the role of diet in managing diabetes. The patient was advised to continue current medications and to monitor symptoms of arthritis and hemorrhoids. Vaccinations were reviewed and confirmed to be up to date. Patient Instructions - Continue taking prescribed medications for hypertension, diabetes, and cholesterol. - Monitor blood pressure and blood sugar levels regularly. - Follow up with neurology for CIDP management and consider IVIG treatment. - Maintain a balanced diet, focusing on low sugar intake and regular consumption of fruits and vegetables. - Stay active and exercise regularly, including stair climbing. - Ensure vaccinations are up to date, including flu and shingles shots. Orders: Orders AMB Hemoglobin A1c Today Z13.9 - Encounter for screening, unspecified
--- OUTSIDE RECORDS SUMMARY | 2025-03-26 14:43 | XMS_ITS | Patient Health Record ---
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) Active confirmed Problem Chronic ulcer of foot (986451602) Non-pressure chronic ulcer of other part of left foot with fat layer exposed (L97.522) Active confirmed Problem Localized, primary osteoarthritis of the ankle and/or foot (755293392) Primary osteoarthritis, right ankle and foot (M19.071) Active confirmed Problem Localized, primary osteoarthritis of the ankle and/or foot (574457917) Primary osteoarthritis, left ankle and foot (M19.072) Active confirmed Problem Acquired hallux valgus (58868626) Hallux valgus (acquired), right foot (M20.11) Active confirmed Problem Non-pressure chronic ulcer of other part of left foot limited to breakdown of skin (L97.521) Active confirmed Problem Acquired hammer toe of right foot (4725642007389583 ) Other hammer toe(s) (acquired), right foot (M20.41) Active confirmed Problem Primary gout (29920969) Idiopathic gout, 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) Active confirmed Problem Acquired hammer toe of right foot (3949508325703325 ) Hammer toe of right foot (M20.41) Active confirmed Problem Acquired hammer toe of left foot (6930584473777560 ) Hammer toe of left foot (M20.42) Active confirmed Problem Polyneuropathy due to type 2 diabetes mellitus (913113560) Type 2 diabetes mellitus with polyneuropathy (E11.42) Active confirmed Problem Non-pressure chronic ulcer left lower leg, limited to breakdown skin (L97.921) Active confirmed Problem Subacute osteomyelitis of right foot (1392161984448278 2) Subacute osteomyelitis of right foot (M86.271) Active confirmed Problem Ulcer of right lower extremity with bone involvement without evidence of necrosis (L97.916) Active confirmed Problem Charcot's arthropathy (520183719) 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..] X ray : Foot, right 3V 09/11/2021 12464-IHDNQKM NAIL, 6 OR MORE 12/05/2017 11877-NFDSDOH NAIL, 6 OR MORE 06/10/2018 72210-DYQITOR NAIL, 6 OR MORE 03/06/2018 75860-EVTJPGT NAIL, 6 OR MORE 09/04/2017 21965-UWAARGB NAIL, 6 OR MORE 06/14/2016 76131-TEIHZQW NAIL, 6 OR MORE 09/05/2016 87191-ZVEIKIL NAIL, 6 OR MORE 11/29/2016 73570-DSDIWHF NAIL, 6 OR MORE 03/06/2017 40552-SBMXEQN NAIL, 6 OR MORE 06/05/2017 96298-Kxqrpacz Plate 07/07/2014 12897-Gcwupeid Plate 12/06/2014 10650-Qrehpwqi Plate 02/28/2015 67006-Lgfqcjsn Plate 05/30/2015 42420-Apslknke Plate 08/31/2015 77195-Eloumspb Plate 11/30/2015 53429-Dvesuhhf Plate 03/28/2016 64987-Zovsktlh Plate 06/14/2016 88753-Zcrxuktz Plate Each Additional 49945- Debride <25 sq cm 02/28/2015 18745- Debride <25 sq cm 08/30/2014 90035- Debride <25 sq cm 12/06/2014 75392- Debride <25 sq cm 11/08/2017 78067- Debride <25 sq cm 11/22/2017 80985- Debride <25 sq cm 12/05/2017 77936- Debride <25 sq cm 12/26/2017 19483- Debride <25 sq cm 01/22/2018 16203-VXVUPTU SKIN/TISSUE 10/25/2017 61118-KTXZFAV SKIN/TISSUE 11/11/2019 69982-OGOIAAO SKIN/TISSUE 08/17/2021 67074-FLYZNKK SKIN/TISSUE 09/11/2021 21604-IUBPKBS SKIN/TISSUE 09/21/2022 86665-FNYKJJF SKIN/TISSUE 08/07/2021 53134-NIFJGQQ SKIN/TISSUE 08/10/2021 87136- I&D ABSCESS-COMPLICATED,MULTI 03/2019 71011- I&D ABSCESS-COMPLICATED,MULTI 05/2018 06436-TPUL SKIN LESIONS, OVER 4 12/06/19 18 81956-HRXH SKIN LESIONS, OVER 4 06/10/20 18 36771-YBAC SKIN LESIONS, OVER 4 03/06/20 18 89740-TMKV SKIN LESIONS, OVER 4 09/05/19 18 57772-DCSN SKIN LESIONS, OVER 4 06/05/20 17 63925-VPCL SKIN LESIONS, OVER 4 03/06/20 17 98829-NJSB SKIN LESIONS, OVER 4 02/27/20 19 57627-NXXF SKIN LESIONS, OVER 4 05/04/20 19 82505-UIAV SKIN LESIONS, OVER 4 12/04/19 19 64431-NUKY SKIN LESIONS, OVER 4 07/29/19 20 29730-VBHL SKIN LESIONS, OVER 4 10/29/19 20 56757-NIHN SKIN LESIONS, OVER 4 01/12/20 22 24847-PCNW SKIN LESIONS, 2 TO 4 08/10/19 22 87201-CPOD SKIN LESIONS, 2 TO 4 07/27/19 21 42540-BDEZ SKIN LESIONS, 2 TO 4 10/27/19 21 92591-PKCY SKIN LESIONS, 2 TO 4 01/26/20 21 97279-IJVG SKIN LESIONS, 2 TO 4 05/03/20 21 50909-MUAE SKIN LESIONS, 2 TO 4 01/25/20 20 26426-ZUNK SKIN LESIONS, 2 TO 4 04/25/20 20 95774-TWYBZTQY OF HEMATOMA/FLUID 020 69715-EPKVIWYU OF HEMATOMA/FLUID 019 71822-TZJURQLI OF HEMATOMA/FLUID 018 05857-VIBIAKDN OF HEMATOMA/FLUID 018 Insurance Providers Payer Name Payer Address Payer Phone Subscriber Number Group Number Insured Name Patient Relationship to Insured Coverage Start Date Coverage End Date [employer] [address] [place] [address] [id number] Lucas Camilo Self - patient is the insured Medical (General) History Medical History History ICD Code Hiatal hernia High blood pressure Nerve disorder Neuropathy Prostate conditions Guillain Dexter Syndrome type II diabetes Surgical History Surgery Date(Month/Year) appendectomy eye surgery - right eye 12/2017 HT L2nd, Skin disorder L 07/02/19 xrays RT foot ap/lat/lo 11/18/19 Hospitalization History Reason Date(Month/Year) pt went to [facility] for a thang baree.
--- OUTSIDE RECORDS SUMMARY | 2025-03-26 14:43 | XMS_ITS | Clinical Summary ---
Author Organization [facility] Address [address] [place] [address] Phone Care Team Providers Care Signal Fitter Name Role Phone Parish Vincent MD Primary Care Provider [phone] Allergies Active Allergy Reactions Criticality Noted Date Comments Hydrochlorothiazide Cough 02/17/2025 Lisinopril Cough 09/13/2021 Medications flintstones complete (Multi-Vitamins with Iron) [...] Encounters Date Type Department Care Team Description 02/17/2025 3:45 PM EDT Office Visit Orthopedic Surgery [address] [phone] Skip Chirstianson DPM Acquired hammer toe of right foot (Primary Dx) 02/03/2025 2:15 PM EDT Office Visit Orthopedic [facility] [address] [phone] Skip Christianson DPM Acquired hammer toe of right foot (Primary Dx); 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); Dermatophytosis of nail; Pain in toe of left foot; Pain in toe of right foot; Metatarsalgia of both feet from Last 3 Months Social History Tobacco [...] Care Team (Late st Contact Info) Description 05/24/2025 2:15 PM EST Office Visit Orthopedic Surgery - [place] [address] [phone] Skip Christianson, DPM [address] [phone] Health Maintenance Due Date Last Done Comments Pneumococcal Vaccine: 50+ Years (2 of 2 - PCV) 06/20/2016 06/20/2015 Cholesterol Screening (Lipid Panel) 05/30/2022 Falls Risk Assessment 05/30/2022 Medicare Annual Wellness Visit 05/30/2022 Social Influencers of Health Screening 05/30/2022 Depression Screening 07/01/2024 Zoster Vaccines (2 of 2) 01/28/2025 12/03/2024 COVID-19 Vaccine ( season) 2025 03/21/2024, 03/28/2023, 04/10/2022, Additional history exists Influenza [...] [employer] [place] [employer] Care Teams Signal Fitter Relationship Specialty Start Date End Date Parish Vincent MD [address] [place] [address] [address] [place] [id number] PCP - General Internal Medicine 09/12/21
== END 2025-03-26 14:39 | disposition home or self-care (01) ==
LOC: HO.HMCH 13:24
PROVIDERS: PCP Internal Medicine; Visit Provider Internal Medicine
DX: Z00.00 Encounter for general adult medical examination without abnormal findings (principal); J44.9 Chronic obstructive pulmonary disease, unspecified; G61.81 Chronic inflammatory demyelinating polyneuritis; E11.65 Type 2 diabetes mellitus with hyperglycemia; N40.0 Benign prostatic hyperplasia without lower urinary tract symptoms; I10 Essential (primary) hypertension; E78.5 Hyperlipidemia, unspecified

== ENCOUNTER → 2025-03-26 13:23 | Outpatient (BNVA) | payer MEDICARE, SELFPAY | PROVIDERS: PCP Internal Medicine; Visit Provider Internal Medicine | DX: Z00.00 Encounter for general adult medical examination without abnormal findings (principal); J44.9 Chronic obstructive pulmonary disease, unspecified; N40.0 Benign prostatic hyperplasia without lower urinary tract symptoms; G61.81 Chronic inflammatory demyelinating polyneuritis; I10 Essential (primary) hypertension; E11.65 Type 2 diabetes mellitus with hyperglycemia; E78.00 Pure hypercholesterolemia, unspecified; G61.0 Guillain-Barre syndrome; K64.9 Unspecified hemorrhoids | CPT/HCPCS: 83036; 96127; 99397 ==

== ENCOUNTER 2025-05-20 10:33 | Outpatient (AMB) | payer MEDICARE, SELFPAY ==
--- OUTSIDE RECORDS SUMMARY | 2024-02-24 08:45 | XMS_ITS ---
Author Organization [facility] Address [address] [place] [address] Care Team Providers Care Flooring Machine Feeder Name Role Phone Parish Vincent MD Primary Care Provider Demian Johnson Unavailable [phone] REASON FOR VISIT Painful nail(s) aggrevated by shoes and causing difficulty standing/walking. 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 ; Hallux valgus (acquired), right foot M20.11 and Other hammer toe(s) (acquired), right foot M20.41 Assessments Encounter Date Diagnosis (ICD Code) Assessment Notes Treatment Notes Treatment Clinical Notes Section Notes 02/24/2024 Tinea unguium (ICD-10 - B35.1) 02/24/2024 Ingrowing nail (ICD-10 - L60.0) 02/24/2024 Pain in right toe(s) (ICD-10 - M79.674) 02/24/2024 Type 2 diabetes mellitus with polyneuropathy (ICD-10 - E11.42) 02/24/2024 Pain in left toe(s) (ICD-10 - M79.675) 02/24/2024 Guillain-[place] syndrome (ICD-10 - G61.0) 02/24/2024 Hallux valgus (acquired), right foot (ICD-10 - M20.11) 02/24/2024 Other hammer toe(s) (acquired), right foot (ICD-10 - M20.41) Plan Of Treatment Next Appt Details Follow Up: 3 Months, Reason: Procedure Notes * Category Sub-Category Detail Notes Debride Nail 6-10 Nail debridement Nail debridem ent performed extensively to reduce/remove overall nail length and girth, subungual debris, and necrotic tissue, by manual and electrical means with use of a nail nipper and/or dremel, to more viable healthy nail plate or bed tissue 6-10. Silver nitrate used for any petechial bleeding as necessary. Patient chooses, no pharmaceutical tx (02630) Debride skin< 25 sq cm Open wound Open woun d selective debridement of fibrin, devitilized epidermis and/or dermis, exudate, using sterile sharp dissection, without use of anesthesia, with/without topical applications, wound assessment and instructions for ongoing care, Wound Care, The patient was instructed on importance of proper wound care consisting of pressure reduction, maintainance of moist wound environment, and regular debridement of devitilized tissue , The patient is to cleanse the wound with warm soapy water/peroxide/saline or betadine BID based on product availability , The patient is to apply Antibiotic Oint. to the wound and cover with a DSD , The patient was instructed to change dressings according to orders or PRN saturation, leaks, The patient was instructed to monitor and report any signs or symptoms of infection or any untoward reactions (93797) Keratoma Treatment Parring or Cutting o f Benign Hyperkeratotic Lesion(s) 48395 ( >4 Lesions) - The Benign hyperkeratotic lesions, as described above were pared, and/or cut utilizing a sterile #15 blade, tissue nippers, and/or dremel Progress Notes * Lucas CAMILODOB:[birth year] (85 yo M)Acc No.[id number]:02/24/2024 Progress Note Patient: Lucas PAYNE Maximilian Provider: Jannette Christianson DPM :1940 A ge:83 Y S ex:Male Date:02/24/2024 Address:[address] [id number] Pcp:Parish Vincent MD Subjective: * Chief Complaints: * 1 . Painful nail(s) aggrevated by shoes and causing difficulty standing/walking.. * HPI: P ainful Nails: Pt States Last PCP Visit: D ate: 0 09/30/2023 Misc: w chantale passed 10/22. T oe pain: Nature: a casey, tenderness. Location: 4 th toe, Right foot. Aggravated by: s hoes. Treatments: b racing/splinting/padding. Severity/Quality: m oderate. * ROS: G eneral/Constitutional: Nausea d enies. V omiting d enies. H rosa Thirst d enies. L oss appetite d enies. C hills d enies. F atigue d enies.?Fever d enies. N ight Sweats d enies. U nexplained weight loss d enies. U nexplained weight gain d enies. H EENTM: Dentures d enies. D izziness d enies. G lasses/contacts d enies. R etinopathy d enies. B lurred/double vision d enies. T MJ?denies. D ischarge/drainage d enies. I mplants d enies. S ore throat d enies. D ental implants d enies. H katy of hearing d enies. D ifficulty chewing/swallowing/speaking d enies. N ose bleeds d enies. S ore mouth d enies. ? R espiratory: On Oxygen d enies. P neumonia/pleurisy d enies.?Bronchitis d enies. E mphysema d enies. C oughing d enies. C ough blood?denies. S hortness of breath d enies. W heezing d enies. C ardiovascular: Pacemaker a dmits. M LANGUAGE ASST d enies. W PW d enies. C HF d enies. H eart attack d enies. S eptal defect d enies. R apid beat d enies. C hest pain d enies. A trial Fib. d enies. M urmur/Palpitations d enies. G astrointestinal: Hemorrhoids d enies. S tomach/Abdominal pain d enies. D ark blood stool d enies. I rritable bowel d enies. C onstipation d enies. D iarrhea d enies. H ematology: Swelling a dmits. C lots d enies. V aricose Veins d enies. B ruising d enies. B leeding problem d enies. G enitourinary: Blood urine d enies. F requent/Painfu/urination/bladder control d enies. K idney stones d enies. I nfection (UTI) d enies. N ephropathy d enies. s ex trans dis (STD) d enies. P rostate d enies. M usculoskeletal: Hammertoes d enies. B unions d enies. B ack Pain d enies. M uscle Cramps/ Resting d enies. M uscle cramps / walking d enies.?Generalized aches and pains a dmits. W eakness d enies. I nteg.: Gongora d enies. S cars d enies. C orns/calluses?admits. I ngrown nails d enies. P ainful nails d enies. O pen Sores d enies. R ashes d enies. N eurologic: Difficulty sleeping d enies. B rain disorder d enies. N umbness a dmits. B alance trouble d enies. C onfusion d enies. F ainting/blackouts d enies. T ingling a dmits. T remors d enies. * Medical History: Objective: * Vitals: * Examination: N ails: NAILS are: Elongated, overgrown, dystrophic, lytic, greater than 3mm thick, discolored and friable with crumbly malodorous subungual debris, with dull to no pain on palpation due to neuropathy, TA, T2, T3, T4, T5, T6, T7, T8. G eneral Examination: GENERAL APPEARANCE: p leasant, alert, well nourished, well developed, well hydrated, with good attention to hygene/body habitus, and in no acute distress. ORIENTED: p erson,place, and time. N eurological: SENSORY: Neurological exam demonstrates, reduced light touch sensation, reduced sharp/dull pin prick discrimination , reduced vibration sensation, 5.07 monofilament test performed at plantar aspects of 5 varied sites per foot shows sensation, absent, at Forefoot, at Midfoot, B/L. V ascular: DP PULSES (B): 2 /4, B/L. PT PULSES (B): 1/4, B/L. CAPILLARY FILL TIME: 3 secs. per digit. B/L. TEMPERTURE GRADIENT (C): n ormal, B/L. EDEMA (C): 1/4, B/L, Feet, Ankle(s), Leg(s). ? O rthopedic: MUSCLE STRENGTH: 5 /5 all groups in a symmetrical fashion , B/L. BUNION: Medially prominent 1st MPJ, (+) Pain on palpation, RIGHT, Lateral tracking 1st MPJ nonreducable. DIGITAL DEFORMITIES: Amputation T9; semi flexible hts t8 underlapping t7. O phthalmology Referral: DIABETES EYE EXAM D iabetic Retinopathy Screening: Y es F indings of Diabetic Eye Exam: n o retinopathy D ermatologic: SKIN FINDINGS: Skin exam reveals Keratotic lesion(s) located at, Medial plantar, IPJ, T5, SUB MTH (s), 1, Right , Plantar, T8, Plantar, Heel(s), B/L ; plantar becka midfoot. ULCER: LOCATION-lateral left heel, SIZE, resolved. ? Assessment: * Assessment: 1. T inea unguium - B35.1 (Primary) 2 . I ngrowing nail - L60.0 ?3. P ain in right toe(s) - M79.674 4 . T ype 2 diabetes mellitus with polyneuropathy - E11.42 5 . P ain in left toe(s) - M79.675 6 . 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 H allux valgus (acquired), right foot - M20.11 8 . O ther hammer toe(s) (acquired), right foot - M20.41 Plan: * Treatment: * Procedures: D ebride Nail 6-10: Nail debridement N ail debridement performed extensively to reduce/remove overall nail length and girth, subungual debris, and necrotic tissue, by manual and electrical means with use of a nail nipper and/or dremel, to more viable healthy nail plate or bed tissue 6-10. Silver nitrate used for any petechial bleeding as necessary. Patient chooses, no pharmaceutical tx (85799). D ebride skin< 25 sq cm: Open wound O pen wound selective debridement of fibrin, devitilized epidermis and/or dermis, exudate, using sterile sharp dissection, without use of anesthesia, with/without topical applications, wound assessment and instructions for ongoing care, Wound Care, The patient was instructed on importance of proper wound care consisting of pressure reduction, maintainance of moist wound environment, and regular debridement of devitilized tissue , The patient is to cleanse the wound with warm soapy water/peroxide/saline or betadine BID based on product availability , The patient is to apply Antibiotic Oint. to the wound and cover with a DSD , The patient was instructed to change dressings according to orders or PRN saturation, leaks, The patient was instructed to monitor and report any signs or symptoms of infection or any untoward reactions (61747).? K eratoma Treatment: Parring or Cutting of Benign Hyperkeratotic Lesion(s) 1 1057 ( >4 Lesions) - The Benign hyperkeratotic lesions, as described above were pared, and/or cut utilizing a sterile #15 blade, tissue nippers, and/or dremel. * Procedure Codes: 1 1721 DEBRIDE NAIL, 6 OR MORE, Modifiers: XS , 48185 TRIM SKIN LESIONS, OVER 4, Modifiers: XS * Follow Up: 3 Months * Images: * The named appointment provid er may or may not be the originator of this progress note, and it is not deemed complete until electronically signed by the appointment provider. Sign off status: Pending * Provider: Jannette Christianson DPM Date: 0 02/24/2024 Generated for Niya glover/Palak/Ingrid on: 07/20/2024 03:34 PM EST History and Physical Notes * HPI (History of Present Illness) Category Sub-Category Detail Notes Category Not es Toe pain Nature: aching, tenderness Location: 4th toe, Right foot Aggravated by: shoes Treatments: bracing/splinting/pa dding Severity/Quality: moderate Painful Nails Misc: passed 10/22 Pt States Last PCP Visit: Date:: 09/30/2023 Examination Category Sub-Category Detail Notes Category Not es Neurological SENSORY: Neurological exa m demonstrates, reduced light touch sensation, reduced sharp/dull pin prick discrimination , reduced vibration sensation, 5.07 monofilament test performed at plantar aspects of 5 varied sites per foot shows sensation, absent, at Forefoot, at Midfoot, B/L Dermatologic SKIN FINDINGS: Skin exam reveal s Keratotic lesion(s) located at, Medial plantar, IPJ, T5, SUB MTH (s), 1, Right , Plantar, T8, Plantar, Heel(s), B/L ; plantar becka midfoot ULCER: LOCATION-lateral lef t heel, SIZE, resolved Orthopedic BUNION: Medially promine nt 1st MPJ, (+) Pain on palpation, RIGHT, Lateral tracking 1st MPJ nonreducable DIGITAL DEFORMITIES: Amputation T9; semi flexible hts t8 underlapping t7 MUSCLE STRENGTH: 5/5 all groups in a symmetrical fashion , B/L General Examination GENERAL APPEARANCE: pleasant , alert, well nourished, well developed, well hydrated, with good attention to hygene/body habitus, and in no acute distress ORIENTED: person,place, and ti me Ophthalmology Referral DIABETES EYE EXAM Diabetic Retinopa thy Screening:: Yes Findings of Diabetic Eye Exam:: no retin opathy Vascular DP PULSES (B): 2/4, B/L PT PULSES (B): 1/4, B/L CAPILLARY FILL TIME: 3 secs. per digit. B/L TEMPERTURE GRADIENT (C): normal, B/L EDEMA (C): 1/4, B/L, Feet, Ankl e(s), Leg(s) Nails NAILS are: Elongated, overg rown, dystrophic, lytic, greater than 3mm thick, discolored and friable with crumbly malodorous subungual debris, with dull to no pain on palpation due to neuropathy, TA, T2, T3, T4, T5, T6, T7, T8
[2025-05-20 10:38] VITALS: BP 110/62; PULSE 74; O2SAT 96; BMI 29.7
--- NOTE | 2025-05-20 10:38 | A.OFFVIS_ITS ---
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 he is not sure what treatment he got but he slowly recovered in 1 year. he was hospitalized for 6 mths. He was fine until he turned 60-he noticed numbness in his becka feet and acute weakness of his becka LE. He went to ER - spinal tap c/w GBS . He was given 5 day IVIG . He recovered in 2 weeks . He was maintained on monthly then every 6 mths but due to insurance denial he stopped. 1 mth later he had another similar episode - that patient realized that everytime he got respiratory or sinus infection he had an episode but if he had antibiotics started immediately he was fine. In 2020 he developed becka LE weakness- seen by , EMG showed demyelination and CSF showed albuminocytologic dissociation. He was treated with IVIG. 3 mths ago he started noticing numbness weakness in becka hand. His feet was always numb. His recent EMG UE 01/12 - shows Moderate to severe chronic sensory and motor neuropathy with demyelinating and axonal features. 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 Amputation toe History of brain surgery History of appendectomy Family History Father Medical history unknown Mother Heart disease Brother Liver cancer Social History Housing: House Alcohol intake: current Comment: 1-2 a year Patient Tobacco Use Status: Former Tobacco user Tobacco use type: Cigarette Years Smoked: stopped 1994 e-Cigarette/Vaping Use: Never Used Second Hand Smoke Exposure: No service: No Current occupational status: retired Cognitive needs: No Hearing needs: No Vision needs: Yes (reading glasses) Physical Exam Vital Signs: Last Vital Signs Pulse 74 05/20/25 10:38 BP 110/62 05/20/25 10:38 Pulse Ox 96 05/20/25 10:38 Oxygen Delivery Method Room Air 05/20/25 10:38 BMI result Body Mass Index 29.7 Const General: cooperative, healthy appearing, comfortable, no acute distress and well developed Nutritional Appearance: overweight Orientation/consciousness: patient oriented x3 Eyes Pupils: Equal, round and reactive pupils present Neuro Other: Gait- mild antalgic Mild weakness of hand 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 General: patient oriented x3, tone normal and moves all extremities Cranial nerves: Yes Facial sensation intact/muscles of mastication intact, Yes Equal, round and reactive pupils present, Yes Bilaterally intact EOM present, Yes Nystagmus not present, Yes Normal facial strength present and Yes Midline tongue present Cognition (Neuro): normal cognition Gait exam (Neuro): Antalgic gait present Motor exam (neuro): 5/5 motor strength present throughout and Normal motor muscle tone present throughout Deep tendon reflexes (DTR's): Right triceps reflex intensity grade: 1+, Left triceps reflex intensity grade: 1+, Rt Biceps (C5, C6): 0, Left biceps reflex intensity grade: 0, Right brachioradialis reflex intensity grade: 0, Left brachioradialis reflex intensity grade: 0, Right patellar reflex intensity grade: 0 and Left patellar reflex intensity grade: 0 Coordination: [id number] test normal Assessment & Plan Assessment & Plan (1) CIDP (chronic inflammatory demyelinating polyneuropathy): Code(s): G61.81 - Chronic inflammatory demyelinating polyneuritis Category: Medical Plan He wants to continue PT for now and will consider IVG if he worsens. He needs to go to ER if he develops new weakness as he would need urgent IVIG infusion. Coding Level of Care Code Est Pt Level 4 (29618) Diagnoses CIDP (chronic inflammatory demyelinating polyneuropathy) G61.81
--- OUTSIDE RECORDS SUMMARY | 2025-05-20 15:34 | XMS_ITS | Patient Health Record ---
Author Organization [facility] Address [address] [facility] [place] [address] Care Team Providers Care Pipe Connector Name Role Phone Parish Vincent MD Primary Care Provider Demian Johnson Unavailable [phone] Allergies Allergen (clinical drug ingredient) Drug/Non Drug Allergy documented on EMR Reaction Allergy Type Onset Date Status hydrochlorothiazide Hydrochlorothiazide cough Drug Aller gy Active lisinopril Lisinopril cough Drug Allergy Activ e Reason For Referral No Information Medications Medication [...] Risk Notes Problem Pain in left foot (538772967117317) Pain in left foot (M79.672) Active confirmed Problem Guillain-[place] syndrome (91162638) 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) Active confirmed Problem Chronic ulcer of foot (129267184) Non-pressure chronic ulcer of other part of left foot with fat layer exposed (L97.522) Active confirmed Problem Localized, primary osteoarthritis of the ankle and/or foot (369080960) Primary osteoarthritis, right ankle and foot (M19.071) Active confirmed Problem Localized, primary osteoarthritis of the ankle and/or foot (838527536) Primary osteoarthritis, left ankle and foot (M19.072) Active confirmed Problem Acquired hallux valgus (12191493) Hallux valgus (acquired), right foot (M20.11) Active confirmed Problem Non-pressure chronic ulcer of other part of left foot limited to breakdown of skin (L97.521) Active confirmed Problem Acquired hammer toe of right foot (1763715258935150 ) Other hammer toe(s) (acquired), right foot (M20.41) Active confirmed Problem Primary gout (89490455) Idiopathic gout, 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) Active confirmed Problem Acquired hammer toe of right foot (0281270956082695 ) Hammer toe of right foot (M20.41) Active confirmed Problem Acquired hammer toe of left foot (5968672744780325 ) Hammer toe of left foot (M20.42) Active confirmed Problem Polyneuropathy due to type 2 diabetes mellitus (915864901) Type 2 diabetes mellitus with polyneuropathy (E11.42) Active confirmed Problem Non-pressure chronic ulcer left lower leg, limited to breakdown skin (L97.921) Active confirmed Problem Subacute osteomyelitis of right foot (8330436065714143 2) Subacute osteomyelitis of right foot (M86.271) Active confirmed Problem Ulcer of right lower extremity with bone involvement without evidence of necrosis (L97.916) Active confirmed Problem Charcot's arthropathy (228801166) 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) Active confirmed Plan Of Treatment Pending Test Test Name [...] X ray : Foot, right 3V 09/11/2021 25946-USWPTBK NAIL, 6 OR MORE 12/05/2017 14205-KTWHPJC NAIL, 6 OR MORE 06/10/2018 99891-XEQXSHI NAIL, 6 OR MORE 03/06/2018 48181-WUWRFIA NAIL, 6 OR MORE 09/04/2017 85888-VRFJFMJ NAIL, 6 OR MORE 06/14/2016 95922-QTMLNUU NAIL, 6 OR MORE 09/05/2016 23294-JPAXUKL NAIL, 6 OR MORE 11/29/2016 41182-WWZWIOQ NAIL, 6 OR MORE 03/06/2017 50931-YXGJJZU NAIL, 6 OR MORE 06/05/2017 16258-Dvdddmfs Plate 07/07/2014 78482-Oyirgysk Plate 12/06/2014 81515-Wfrtbuvm Plate 02/28/2015 50660-Paegctbk Plate 05/30/2015 50355-Aqbcplps Plate 08/31/2015 03565-Rjmybbxw Plate 11/30/2015 42076-Mxulggvp Plate 03/28/2016 64052-Hjycuphe Plate 06/14/2016 85223-Vbajdacd Plate Each Additional 70341- Debride <25 sq cm 02/28/2015 96829- Debride <25 sq cm 08/30/2014 50314- Debride <25 sq cm 12/06/2014 35421- Debride <25 sq cm 11/08/2017 38288- Debride <25 sq cm 11/22/2017 58294- Debride <25 sq cm 12/05/2017 86393- Debride <25 sq cm 12/26/2017 76023- Debride <25 sq cm 01/22/2018 28096-WJQMBPH SKIN/TISSUE 10/25/2017 66927-IXWPIBF SKIN/TISSUE 11/11/2019 04110-ENWKYZQ SKIN/TISSUE 08/17/2021 65826-QMCZGKE SKIN/TISSUE 09/11/2021 92512-ZJGRCMR SKIN/TISSUE 09/21/2022 50365-PPSYVOP SKIN/TISSUE 08/07/2021 38545-QNHJAOO SKIN/TISSUE 08/10/2021 72490- I&D ABSCESS-COMPLICATED,MULTI 03/2019 47004- I&D ABSCESS-COMPLICATED,MULTI 05/2018 58511-YRWY SKIN LESIONS, OVER 4 12/06/19 18 01318-XHXW SKIN LESIONS, OVER 4 06/10/20 18 82848-CVLB SKIN LESIONS, OVER 4 03/06/20 18 32226-CUHC SKIN LESIONS, OVER 4 09/05/19 18 63946-PXFE SKIN LESIONS, OVER 4 06/05/20 17 63935-IKIE SKIN LESIONS, OVER 4 03/06/20 17 06270-QJLZ SKIN LESIONS, OVER 4 02/27/20 19 26054-VEOO SKIN LESIONS, OVER 4 05/04/20 19 66070-YXUU SKIN LESIONS, OVER 4 12/04/19 19 68049-RNYL SKIN LESIONS, OVER 4 07/29/19 20 00283-LMJS SKIN LESIONS, OVER 4 10/29/19 20 64123-LZIC SKIN LESIONS, OVER 4 01/12/20 22 59967-VLNL SKIN LESIONS, 2 TO 4 08/10/19 22 65482-ETPX SKIN LESIONS, 2 TO 4 07/27/19 21 51648-YDNQ SKIN LESIONS, 2 TO 4 10/27/19 21 85749-THBA SKIN LESIONS, 2 TO 4 01/26/20 21 88441-LQSG SKIN LESIONS, 2 TO 4 05/03/20 21 30517-YEFB SKIN LESIONS, 2 TO 4 01/25/20 20 06416-MRYV SKIN LESIONS, 2 TO 4 04/25/20 20 50911-OWSNCWHN OF HEMATOMA/FLUID 020 32530-TIYKDJIN OF HEMATOMA/FLUID 019 70830-PXDYAQST OF HEMATOMA/FLUID 018 38315-PKXSNUCW OF HEMATOMA/FLUID 018 Insurance Providers Payer Name Payer Address Payer Phone Subscriber Number Group Number Insured Name Patient Relationship to Insured Coverage Start Date Coverage End Date [employer] [place] [employer] [address] [place] [address] [phone] [id number] Lucas Camilo Self - patient is the insured Medical (General) History Medical History History ICD Code Hiatal hernia High blood pressure Nerve disorder Neuropathy Prostate conditions Guillain [place] Syndrome type II diabetes Surgical History Surgery Date(Month/Year) appendectomy eye surgery - right eye 12/2017 HT L2nd, Skin disorder L 07/02/19 xrays RT foot ap/lat/lo 11/18/19 Hospitalization History Reason Date(Month/Year) pt went to [facility] for a thang baree.
--- OUTSIDE RECORDS SUMMARY | 2025-05-20 15:34 | XMS_ITS | Clinical Summary ---
Author Organization [address] [place] [address] Address [address] [place] [address] Phone Care Team Providers Care Gut Dropper Name Role Phone Parish Vincent MD Primary Care Provider [phone] Allergies Active Allergy Reactions Criticality Noted Date [...] 3:45 PM EDT Office Visit Orthopedic Surgery [facility] [address] [place] [phone] Skip Christianson, DPErnie Acquired hammer toe of right foot (Primary Dx) from Last 3 Months Social History Tobacco [...] PM EST Office Visit Orthopedic Surgery - [place] [address] [phone] Skip Christianson, DPErnie [address] [phone] Health Maintenance Due Date Last [...] [employer] [place] [employer] Care Teams Gut Dropper Relationship Specialty Start Date End Date Parish Vincent MD [address] [place], [place] [phone] PCP - General Internal Medicine 09/12/21
== END 2025-05-20 11:09 | disposition home or self-care (01) ==
LOC: HO.HSMS 10:34
PROVIDERS: PCP Internal Medicine; Visit Provider Psychiatry & Neurology Neurology
DX: G61.81 Chronic inflammatory demyelinating polyneuritis (principal)
CPT/HCPCS: 99214

== ENCOUNTER → 2025-05-20 10:33 | Outpatient (BNVA) | payer MEDICARE, SELFPAY | PROVIDERS: PCP Internal Medicine; Visit Provider Psychiatry & Neurology Neurology | DX: G61.81 Chronic inflammatory demyelinating polyneuritis (principal) | CPT/HCPCS: 99212 ==